=== PATIENT | female | born 1950 | race Caucasian/White ===

== ENCOUNTER → 2017-08-22 | Outpatient (CLI) | payer BC, MEDICARE ==
--- NOTE | 2017-08-22 10:59 | RADIOLOGY REPORT (SQ) ---
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 TECHNIQUE: Sagittal and Axial imaging includes T1, T2, STIR and gradient echo sequences. Coronal T2/ HASTE imaging. LIMITATIONS: None. FINDINGS: VISUALIZED UPPER ABDOMEN: Limited evaluation. Multiple cysts in the left kidney. SEGMENTATION: No transitional anatomy. The lowest well-developed disc space is labeled L5-S1. ALIGNMENT: Anatomic. VERTEBRAE: Intact. BONE MARROW: Normal. No marrow replacement or reactive changes. DISC SIGNAL: Decreased height and signal. POSTERIOR ELEMENTS: Generally intact. No pars defect evident. HARDWARE: None in the spine. CORD AND CONUS: Normal in size and signal intensity. Conus at the appropriate level. SOFT TISSUES: No aortic aneurysm seen. No bulky retroperitoneal adenopathy or mass. No paraspinal mas s or fluid. L1-L2: No significant spinal stenosis or exit foraminal stenosis. L2-L3: Mild diffuse posterior annular disc bulge. No significant spinal stenosis or exit foraminal s tenosis. L3-L4: No significant spinal stenosis or exit foraminal stenosis. L4-L5: Central disc protrusion. Mild spinal stenosis and lateral recess stenosis. No significant ex it foraminal stenosis. L5-S1: Mild posterior disc bulge. Mild spinal stenosis and lateral recess stenosis. No exit foramin al stenosis. LOWER THORACIC: Incompletely imaged. No stenosis seen. SACRUM: Visualized upper sacrum intact. OTHER: No other significant findings. IMPRESSION: DEGENERATIVE DISC DISEASE DESCRIBED ABOVE. TECHNICAL DOCUMENTATION: JOB ID: [id number]- All Rights Reserved
== END ==
LOC: RAD 08:53
PROVIDERS: ATTEND Family Medicine
DX: M47.16 Other spondylosis with myelopathy, lumbar region (principal)
CPT/HCPCS: 72148

== ENCOUNTER 2017-12-03 16:23 | Inpatient (IN) | payer MEDICARE ==
[2017-12-03] MEDS ORDERED: PROMETHAZINE HCL INJ 50 MG/1 ML VIAL IM ONE (17:08)
--- NOTE | 2017-12-03 17:10 | ER Document Report ---
ED Medical Screen (RME) - General Chief Complaint: Abdominal Pain Stated Complaint: ABDOMINAL PAIN, NAUSEA Time Seen by Provider: 12/03/17 17:07 Mode of Arrival: Ambulatory Information source: Patient TRAVEL OUTSIDE OF THE [place] IN LAST 30 DAYS: No - HPI Patient complains to provider of: abd pain Onset: Other - pt without BM for the past 3-4 days. Now with abd pain and nausea - Related Data Allergies/Adverse Reactions: doxycycline [Doxycycline] Allergy (Severe, Verified 12/03/17 16:24) Past Medical History - Past Medical History Cardiac Medical History: Denies: Hx Coronary Artery Disease, Hx Heart Attack, Hx Hypertension Pulmonary Medical History: Denies: Hx Asthma, Hx Bronchitis, Hx COPD, Hx Pneumonia Neurological Medical History: Denies: Hx Cerebrovascular Accident, Hx Seizures GI Medical History: Reports: Hx Hiatal Hernia - hx of repair, takes nexium. Denies: Hx Hepatitis, Hx Ulcer Musculoskeltal Medical History: Reports Hx Arthritis - mobic prn Infectious Medical History: Denies: Hx Hepatitis Past Surgical History: Denies: Hx Mastectomy, Hx Open Heart Surgery, Hx Pacemaker - Immunizations Hx Diphtheria, Pertussis, Tetanus Vaccination: Yes Physical Exam - Vital signs Vitals: Temp Pulse Resp BP Pulse Ox 98.1 F 99 16 119/73 96 12/03/17 16:27 12/03/17 16:27 12/03/17 16:27 12/03/17 16:27 12/03/17 16:27 Course - Vital Signs Vital signs: Temp Pulse Resp BP Pulse Ox 98.1 F 99 16 119/73 96 12/03/17 16:27 12/03/17 16:27 12/03/17 16:27 12/03/17 16:27 12/03/17 16:27
[2017-12-03] MEDS ORDERED: ONDANSETRON 4 MG TAB.RAPDIS PO ONE (17:46)
[2017-12-03 18:11] LABS: ABSOLUTE EOSINOPHILS # (AUTO) 0.1 10^3/uL (0.0-0.6); ABSOLUTE LYMPHOCYTES (AUTO) 1.2 10^3/uL (0.5-4.7); ABSOLUTE MONOCYTES (AUTO) 0.6 10^3/uL (0.1-1.4); ABSOLUTE NEUT (AUTO) 11.7 10^3/uL (1.7-8.2); BASOPHILS % (AUTO) 0.3 % (0-2); EOSINOPHILS % (AUTO) 0.5 % (0-6); HEMATOCRIT 43.2 % (36.0-47.0); HEMOGLOBIN 14.5 g/dL (12.0-15.5); LYMPHOCYTES % (AUTO) 8.7 % (13-45); MEAN CORPUSCULAR HEMOGLOBIN 30.8 pg (27.0-33.4); MEAN CORPUSCULAR HGB CONC 33.6 g/dL (32.0-36.0); MEAN CORPUSCULAR VOLUME 92 fl (80-97); MONOCYTES % (AUTO) 4.7 % (3-13); PLATELET COUNT 318 10^3/uL (150-450); RED BLOOD COUNT 4.71 10^6/uL (3.72-5.28); SEGMENTED NEUTROPHILS % (AUTO) 85.8 % (42-78); TOTAL CELLS COUNTED % (AUTO) 100 %; WHITE BLOOD COUNT 13.6 10^3/uL (4.0-10.5)
[2017-12-03 18:21] LABS: APPEARANCE,URINE CLOUDY; BILIRUBIN,URINE NEGATIVE (NEGATIVE); CALCIUM OXALATE CRYSTALS,URINE MODERATE /HPF; COLOR,URINE AMBER; GLUCOSE, URINE NEGATIVE (NEGATIVE); KETONES,URINE NEGATIVE (NEGATIVE); LEUKOCYTE ESTERASE,URINE NEGATIVE (NEGATIVE); NITRITE,URINE NEGATIVE (NEGATIVE); PROTEIN,URINE 30 mg/dL (NEGATIVE); URINE SPECIFIC GRAVITY 1.026
--- NOTE | 2017-12-03 18:21 | RADIOLOGY REPORT (SQ) ---
EXAM DESCRIPTION: ACUTE ABDOMEN SERIES COMPLETED DATE/TIME: 12/03/2017 6:09 pm REASON FOR STUDY: abd pain; constipation COMPARISON: None. NUMBER OF VIEWS: Three views. TECHNIQUE: Frontal chest, supine abdomen and upright/decubitus abdomen radiographic images acquired. LIMITATIONS: None. FINDINGS: CHEST: Lungs clear of infiltrates. FREE AIR: None. No abnormal gas collections. BOWEL GAS PATTERN: Air-fluid levels with distention of the stomach and small bowel loops. No definit e distal gas in the colon. CALCIFICATIONS: No suspicious calcifications. HARDWARE: Hernia coils. SOFT TISSUES: No gross mass or suggestion of organomegaly. BONES: No acute fracture. No worrisome bone lesions. OTHER: No other significant finding. IMPRESSION: Small bowel obstruction. TECHNICAL DOCUMENTATION: JOB ID: [id number] [employer]- All Rights Reserved
[2017-12-03 18:25] LABS: ALANINE AMINOTRANSFERASE 30 U/L (9-52); ALBUMIN 3.9 g/dL (3.5-5.0); ALKALINE PHOSPHATASE 75 U/L (38-126); ANION GAP 11 (5-19); ASPARTATE AMINO TRANSFERASE 20 U/L (14-36); BILIRUBIN,DIRECT 0.5 mg/dL (0.0-0.4); BILIRUBIN,TOTAL 0.6 mg/dL (0.2-1.3); BLOOD UREA NITROGEN 23 mg/dL (7-20); CALCIUM 9.8 mg/dL (8.4-10.2); CARBON DIOXIDE 26 mmol/L (22-30); CHLORIDE 99 mmol/L (98-107); GLUCOSE 110 mg/dL (75-110); POTASSIUM 4.7 mmol/L (3.6-5.0); SODIUM 135.7 mmol/L (137-145)
[2017-12-03] MEDS ORDERED: NORMAL SALINE 1000 ML 1,000 ML IV ONE (20:35)
[2017-12-03] MEDS ORDERED: ONDANSETRON HCL INJ/PF 4 MG/2 ML SDV IV ONE (20:35)
[2017-12-03] MEDS ORDERED: HYDROMORPHONE HCL INJ/PF 2 MG/ML AMPULE IV ONE (20:35)
[2017-12-03] MEDS ORDERED: LIDOCAINE 2% VISCOUS SOLN 20 ML UDCUP PO ONE (20:35)
--- NOTE | 2017-12-03 20:41 | ER Document Report ---
ED General - General Mode of Arrival: Ambulatory Information source: Patient TRAVEL OUTSIDE OF THE [place] IN LAST 30 DAYS: No <WALLY MEDINA - Last Filed: 12/03/17 23:54> <MARSHA COLLADO - Last Filed: 12/04/17 00:05> - General Chief Complaint: Abdominal Pain Stated Complaint: ABDOMINAL PAIN, NAUSEA Time Seen by Provider: 12/03/17 17:07 Notes: Mrs. Metzger is a 67 y.o female with a PMHx of sleep apnea, arthritis and one prior episode of Afib for which she does not take blood thinners but is rate controlled on Diltiazem. Patient presents to the ED with abd pain and nausea. Patient states that she has dealt with constipation for a while but has been better in general since she started losing weight the past few months. Patient reports that she has been constipated for the past 3-4 days with the onset of the her abdominal pain. She reports doing a fleet enema today at 1300 at home with some relief and and a small BM here in the ED. Patient also admits to passing gas today. Patient states she was vomiting clear liquids but denies vomiting bile or stool. Patient has taken Zofran upon arrival and states she has been relieved from her nausea. She denies any fever. She reports that she last ate and drank last night around 1800. Patient denies any PMHX of HTN or DM. She reports a PSHx hiatal hernia repair, cholecystectomy, tubal ligation and LT knee replacement. (WALLY MEDINA) - Related Data Allergies/Adverse Reactions: doxycycline [Doxycycline] Allergy (Severe, Verified 12/03/17 16:24) Past Medical History - General Information source: Patient - Social History Smoking Status: Never Smoker Chew tobacco use (# tins/day): No Frequency of alcohol use: None Drug Abuse: None Patient has suicidal ideation: No Patient has homicidal ideation: No - Past Medical History Cardiac Medical History: Reports: Hx Atrial Fibrillation Renal/ Medical History: Denies: Hx Peritoneal Dialysis GI Medical History: Reports: Hx Gastroesophageal Reflux Disease, Hx Hiatal Hernia - hx of repair, takes nexium Musculoskeltal Medical History: Reports Hx Arthritis - mobic prn Past Surgical History: Reports: Hx Cholecystectomy, Hx Orthopedic Surgery - left knee replacement - Immunizations Hx Diphtheria, Pertussis, Tetanus Vaccination: Yes Hx Pneumococcal Vaccination: 10/23/12 <WALLY MEDINA - Last Filed: 12/03/17 23:54> - Social History Family History: Reviewed & Not Pertinent <MARSHA COLLADO - Last Filed: 12/04/17 00:05> Other: Hiatal Hernia repair (WALLY MEDINA) Review of Systems - Review of Systems Constitutional: denies: Fever EENT: No symptoms reported Cardiovascular: No symptoms reported Respiratory: No symptoms reported Gastrointestinal: Abdominal pain, Nausea, Vomiting, Constipation Genitourinary: No symptoms reported Female Genitourinary: No symptoms reported Musculoskeletal: No symptoms reported Skin: No symptoms reported Hematologic/Lymphatic: No symptoms reported Neurological/Psychological: No symptoms reported <WALLY MEDINA - Last Filed: 12/03/17 23:54> Physical Exam <WALLY MEDINA - Last Filed: 12/03/17 23:54> <MARSHA COLLADO - Last Filed: 12/04/17 00:05> - Vital signs Vitals: Temp Pulse Resp BP Pulse Ox 98.1 F 99 16 119/73 96 12/03/17 16:27 12/03/17 16:27 12/03/17 16:27 12/03/17 16:27 12/03/17 16:27 - Notes Notes: GENERAL: Alert, interacts well. No acute distress. HEAD: Normocephalic, atraumatic. EYES: Pupils equal, round, and reactive to light. Extraocular movements intact. ENT: Oral mucosa moist, tongue midline. NECK: Full range of motion. Supple. Trachea midline. LUNGS: Clear to auscultation bilaterally, no wheezes, rales, or rhonchi. No respiratory distress. HEART: Regular rate and rhythm. No murmurs, gallops, or rubs. ABDOMEN: Soft, moderately distended. Moderately tender to palpation. Decreased bowel sounds, not high pitched. No guarding, rebound, or rigidity. RECTAL: No impaction, loose stool. Good sphincter tone. EXTREMITIES: Moves all 4 extremities spontaneously. No edema, radial and dorsalis pedis pulses 2/4 bilaterally. No cyanosis. NEUROLOGICAL: Alert and oriented x3. Normal speech. PSYCH: Normal affect, normal mood. SKIN: Warm, dry, normal turgor. No rashes or lesions noted. (WALLY MEDINA) Course - Laboratory Result Diagrams: 12/03/17 17:50 12/03/17 17:50 <WALLY MEDINA - Last Filed: 12/03/17 23:54> - Laboratory Result Diagrams: 12/03/17 17:50 12/03/17 17:50 <MARSHA COLLADO - Last Filed: 12/04/17 00:05> - Re-evaluation Re-evalutation: 12/03/17 20:43 CBC shows leukocytosis, CMP grossly unremarkable, Slightly elevated BUN of 23, urinalysis is a large amount of blood, acute abdominal series shows multiple dilated loops of small bowel with air-fluid levels. Rectal examination does not show any signs of impaction, there is actually some liquid stool. Patient did perform a fleets enema earlier this evening. Obviously patient has a partial not complete small bowel obstruction as she is still passing a small amount of gas and leaking a small amount stool. NG tube will be placed with the aid of viscous lidocaine. I did discuss the patient with Dr. Horner who agrees with hydrating her, getting a CT scan of the abdomen and pelvis with IV and oral contrast and admitting to the surgical floor. He will manage the patient from here. CT scan of the abdomen and pelvis will also show whether or not there is an obstructing kidney stone. No evidence of infection in her urine. 12/04/17 00:05 Pre-hypertension will be followed in the hospital. Likely related to pain. ( MARSHA COLLADO) - Vital Signs Vital signs: Temp Pulse Resp BP Pulse Ox 98.1 F 99 17 132/63 H 93 12/03/17 16:27 12/03/17 16:27 12/03/17 23:01 12/03/17 23:01 12/03/17 23:01 - Laboratory Laboratory results interpreted by me: 12/03/17 12/03/17 12/03/17 17:50 17:50 17:50 WBC 13.6 H Seg Neutrophils % 85.8 H Lymphocytes % 8.7 L Absolute Neutrophils 11.7 H Sodium 135.7 L BUN 23 H Est GFR (Non-Af Amer) 57 L Direct Bilirubin 0.5 H Total Protein 6.0 L Urine Protein 30 H Urine Blood LARGE H Urine Urobilinogen 4.0 H Discharge <WALLY MEDINA - Last Filed: 12/03/17 23:54> - Discharge Admitting Provider: Surgicalist - [facility] Admitted: Surgical Floor <MARSHA COLLADO - Last Filed: 12/04/17 00:05> - Discharge Clinical Impression: Small bowel obstruction, Prehypertension Condition: Good Disposition: ADMITTED INPATIENT Scribe Attestation: 12/04/17 00:05 I personally performed the services described in the documentation, reviewed and edited the documentation which was dictated to the scribe in my presence, and it accurately records my words and actions. (MARSHA COLLADO) Scribe Documentation - Scribe Written by Chrissie:: Chrissie Magana, [id number], 12/03/2017 acting as scribe for :: Chelsea <WALLY MEDINA - Last Filed: 12/03/17 23:54>
[2017-12-03] MEDS: NORMAL SALINE 1000 ML 1,000 ML IV PRN ×2 (21:00→21:01)
[2017-12-04] MEDS ORDERED: HYDROMORPHONE HCL INJ/PF 2 MG/ML AMPULE IV PRN (00:14)
--- NOTE | 2017-12-04 02:33 | RADIOLOGY REPORT (SQ) ---
EXAM DESCRIPTION: CT ABDOMEN AND PELVIS WITH CONTRAST CLINICAL HISTORY: small bowel obstruction COMPARISON: None Available. TECHNIQUE: CT of the abdomen and pelvis are performed during IV bolus administration of 100 mL of Isovue-370. DLP: 2091.64 mGycm FINDINGS: Abdomen: The liver has normal size and density. No intrahepatic mass or biliary dilatation. Prior cholecystectomy. The spleen, pancreas, and adrenal glands are unremarkable. Prominent left peripelvic cyst. No solid renal mass or hydronephrosis. Punctate bilateral nonobstructing renal calculi. Aortoiliac atherosclerosis. IVC is unremarkable. The portal vein patent. The proximal visceral and renal arteries are patent. No free intraperitoneal air. Moderate hiatal hernia. Pelvis: Prior hernia repair. Hysterectomy. Urinary bladder is unremarkable. No free pelvic fluid or lymphadenopathy. Scattered diverticula of the colon without pericolic fat stranding. Dilated loops of small bowel with transition point in the right. Abdomen, best appreciated on coronal images 25 through 27. No evidence of appendicitis. The visualized lung bases are clear. No destructive bone lesions identified. Degenerative change of the spine. IMPRESSION: 1. Findings compatible with small bowel obstruction with transition point in the right mid abdomen best seen on coronal images 25 through 27. 2. Diverticulosis without evidence of acute diverticulitis. 3. Punctate bilateral nonobstructing renal calculi. 4. Hiatal hernia. This exam was performed according to our departmental dose-optimization program, which includes automated exposure control, adjustment of the mA and/or kV according to patient size and/or use of iterative reconstruction technique.
--- NOTE | 2017-12-04 06:16 | RADIOLOGY REPORT (SQ) ---
EXAM DESCRIPTION: KUB/ABDOMEN (SINGLE VIEW) CLINICAL HISTORY: Check Placement of NG Tube COMPARISON: None. FINDINGS: Single view of the abdomen. NG tube with tip curled in the esophagus. Contrast identified in the collecting system. Postoperative change of the abdomen. Dilated loops of small bowel. No definite free intraperitoneal air. Hiatal hernia. IMPRESSION: 1. NG tube with tip curled in the esophagus. NG tube needs repositioning.
[2017-12-04] MEDS ORDERED: ACETAMINOPHEN 325 MG TABLET PO PRN (07:00)
[2017-12-04] MEDS: POTASSI CL 20 MEQ/D5-1/2NS 1L 1000 ML IV PRN ×2 (07:16→21:55)
[2017-12-04] MEDS ORDERED: ONDANSETRON HCL INJ/PF 4 MG/2 ML SDV IV PRN (07:56)
[2017-12-04] MEDS ORDERED: ENOXAPARIN SODIUM INJ 40 MG/0.4 ML DISP.SYRIN SUBCUT SCH (10:00)
--- NOTE | 2017-12-04 10:07 | RADIOLOGY REPORT (SQ) ---
EXAM DESCRIPTION: ABDOMEN 2 VIEWS COMPLETED DATE/TIME: 12/04/2017 8:53 am REASON FOR STUDY: SBO COMPARISON: 12/04/2017 0230 hours NUMBER OF VIEWS: Two views. TECHNIQUE: Supine and erect/decubitus radiographic images of the abdomen acquired. LIMITATIONS: None. FINDINGS: FREE AIR: None. No abnormal gas collections. LUNG BASES: Clear. BOWEL GAS PATTERN: The GB air-fluid levels in the small bowel on with mild dilatation. Contrast is s een in the colon. Intravenous contrast seen in the bladder. CALCIFICATIONS: No suspicious calcifications. SOFT TISSUES: No gross mass or suggestion of organomegaly. HARDWARE: Nasogastric tube continues to be cord in the mid esophagus. The tip is not in the stomach. Hernia coils. BONES: No acute fracture. No worrisome bone lesions. OTHER: No other significant finding. IMPRESSION: Partial small bowel obstruction. The nasogastric tube continues to be coiled in the mid esophagus. TECHNICAL DOCUMENTATION: JOB ID: [id number] [employer]- All Rights Reserved
--- NOTE | 2017-12-04 16:09 | HISTORY AND PHYSICAL E ---
History and Physical NAME: BRIDGETTE BOONE : 1950 AGE: 67Y ADMITTED: 12/03/2017 ROOM: 223 HISTORY OF PRESENT ILLNESS: The patient is being admitted to the emergency room for evaluation and management of her partial small bowel obstruction. The patient has history of constipation, recurrent episodes in the past. and she developed an abdominal distention, passing only a small stool, abdominal distention, nausea. She did not vomited at any time at home, . In the emergency room an abdominal series showed dilated small bowel loops with . The patient got years ago and she had more problem with constipation, passing small stool. SURGICAL HISTORY: She had a gallbladder surgery, laparoscopic cholecystectomy, and hiatal hernia repair in the past. REVIEW OF SYSTEMS: As per examination. PHYSICAL EXAMINATION: VITAL SIGNS: afebrile. GENERAL: The patient is awake, alert, oriented. HEAD AND NECK: No lymphadenopathy, no masses. CHEST: Both lungs are clear to auscultation. CARDIOVASCULAR: Heart sounds are regular, no murmurs, no gallops. ABDOMEN: Soft, mild distention, no tenderness on palpation. No palpable hernia on palpation. The bowel sounds . IMPRESSION OVERALL: Partial small bowel obstruction. DICTATING PHYSICIAN: KAREN RAMOS M.D. [id number] PHY#: [id number] ID: [id number] JOB#: [id number] ACCT: [id number] cc:KAREN RAMOS M.D. >
--- NOTE | 2017-12-04 17:40 | PDOC PROGRESS REPORT ---
Subjective Progress Note for:: 12/04/17 Subjective:: Patient passed some flatus this morning. No more abdominal pain. NGT not draining. Reason For Visit: INTESTINAL OBSTRUCTION Physical Exam Vital Signs: Temp Pulse Resp BP Pulse Ox 98.4 F 60 24 H 131/61 H 97 12/04/17 12:00 12/04/17 12:00 12/04/17 12:00 12/04/17 12:00 12/04/17 12:00 Intake & Output 12/03/17 12/04/17 12/05/17 06:59 06:59 06:59 Intake Total 0 Balance 0 General appearance: PRESENT: no acute distress, well-developed, well-nourished Head exam: PRESENT: atraumatic, normocephalic Ear exam: PRESENT: normal external ear exam Neck exam: ABSENT: carotid bruit, JVD, lymphadenopathy, thyromegaly Respiratory exam: PRESENT: clear to auscultation gilmar. ABSENT: rales, rhonchi, wheezes Cardiovascular exam: PRESENT: RRR. ABSENT: diastolic murmur, rubs, systolic murmur GI/Abdominal exam: PRESENT: normal bowel sounds, soft, other - midline epigastric surgical scar and some laparoscpoic surgical scars in the upper abdomen. Neurological exam: PRESENT: alert, awake, oriented to person, oriented to place , oriented to time, oriented to situation, CN II-XII grossly intact. ABSENT: motor sensory deficit Psychiatric exam: PRESENT: appropriate affect, normal mood. ABSENT: homicidal ideation, suicidal ideation Results Impressions: Acute Abdomen Series 12/03/17 17:07 IMPRESSION: Small bowel obstruction. Abdomen X-Ray 12/04/17 00:00 IMPRESSION: Partial small bowel obstruction. The nasogastric tube continues to be coiled in the mid esophagus. Abdomen/Pelvis CT 12/04/17 00:00 IMPRESSION: 1. Findings compatible with small bowel obstruction with transition point in the right mid abdomen best seen on coronal images 25 through 27. 2. Diverticulosis without evidence of acute diverticulitis. 3. Punctate bilateral nonobstructing renal calculi. 4. Hiatal hernia. This exam was performed according to our departmental dose-optimization program, which includes automated exposure control, adjustment of the mA and/or kV according to patient size and/or use of iterative reconstruction technique. KUB X-Ray 12/04/17 00:23 IMPRESSION: 1. NG tube with tip curled in the esophagus. NG tube needs repositioning. Assessment & Plan - Plan Summary Plan Summary: resolved partial SBO DC NGT Commence sips of clears po
[2017-12-04] MEDS ORDERED: (PENDING PHARMACY ID) (Rizatriptan Benzoate [Maxalt] 10 MG) PO PRN (18:59)
[2017-12-04] MEDS ORDERED: (PENDING PHARMACY ID) (Diltiazem Hcl [Cartia Xt] 180 MG) PO SCH (19:00)
[2017-12-04] MEDS ORDERED: (PENDING PHARMACY ID) (Tolterodine Tartrate [Detrol] 2 MG) PO SCH (19:00)
[2017-12-04] MEDS ORDERED: OMEGA-3 ACID ETHYL ESTERS 1 GM CAPSULE PO ONE (20:30)
[2017-12-04] MEDS ORDERED: MELOXICAM 7.5 MG TABLET PO ONE (20:30)
[2017-12-04] MEDS ORDERED: CETIRIZINE 10 MG TABLET PO ONE (20:30)
[2017-12-04] MEDS ORDERED: DILTIAZEM HCL 180 MG CAPSULE.CR PO ONE (21:00)
[2017-12-04] MEDS: TOLTERODINE TARTRATE 1 MG TABLET PO SCH (21:55)
[2017-12-05] MEDS ORDERED: LANSOPRAZOLE 30 MG TAB.RAP.DR PO SCH (06:00)
[2017-12-05 07:12] LABS: ABSOLUTE BASOPHILS # (AUTO) 0.1 10^3/uL (0.0-0.2); ABSOLUTE EOSINOPHILS # (AUTO) 0.5 10^3/uL (0.0-0.6); ABSOLUTE LYMPHOCYTES (AUTO) 2.1 10^3/uL (0.5-4.7); ABSOLUTE MONOCYTES (AUTO) 0.5 10^3/uL (0.1-1.4); BASOPHILS % (AUTO) 0.8 % (0-2); EOSINOPHILS % (AUTO) 6.7 % (0-6); HEMATOCRIT 35.5 % (36.0-47.0); MEAN CORPUSCULAR HEMOGLOBIN 31.1 pg (27.0-33.4); MEAN CORPUSCULAR HGB CONC 33.5 g/dL (32.0-36.0); MEAN CORPUSCULAR VOLUME 93 fl (80-97); MONOCYTES % (AUTO) 7.5 % (3-13); PLATELET COUNT 213 10^3/uL (150-450); RED BLOOD COUNT 3.83 10^6/uL (3.72-5.28); TOTAL CELLS COUNTED % (AUTO) 100 %; WHITE BLOOD COUNT 7.2 10^3/uL (4.0-10.5)
[2017-12-05 07:15] LABS: HEMOGLOBIN 11.9 g/dL (12.0-15.5)
[2017-12-05 07:25] LABS: BLOOD UREA NITROGEN 9 mg/dL (7-20); CALCIUM 8.9 mg/dL (8.4-10.2); CHLORIDE 109 mmol/L (98-107); GLUCOSE 104 mg/dL (75-110); POTASSIUM 4.2 mmol/L (3.6-5.0)
[2017-12-05 07:36] LABS: CARBON DIOXIDE 29 mmol/L (22-30)
[2017-12-05 07:40] LABS: ANION GAP 2 (5-19)
[2017-12-05] MEDS: TOLTERODINE TARTRATE 1 MG TABLET PO SCH (09:23)
[2017-12-05] MEDS ORDERED: FLUTICASONE NASAL SPRAY 50 MCG/SPRY 120 SPRAY/16 GM NASL SCH (10:00)
[2017-12-05] MEDS ORDERED: OMEGA-3 ACID ETHYL ESTERS 1 GM CAPSULE PO SCH (10:00)
[2017-12-05] MEDS ORDERED: (PENDING PHARMACY ID) (Multivitamin [Multivitamins] 1 TAB) PO SCH (10:00)
[2017-12-05] MEDS ORDERED: FISH OIL PO SCH (10:00)
[2017-12-05] MEDS ORDERED: DILTIAZEM HCL 180 MG CAPSULE.CR PO SCH ×2 (10:00→22:00)
[2017-12-05] MEDS ORDERED: OMEGA PO SCH (10:00)
[2017-12-05] MEDS ORDERED: FATTY ACIDS PO SCH (10:00)
[2017-12-05] MEDS ORDERED: (PENDING PHARMACY ID) (Ergocalciferol (Vitamin D2) [Vitamin D2] 2,000 UNIT) PO SCH (10:00)
[2017-12-05] MEDS ORDERED: MELOXICAM 7.5 MG TABLET PO SCH ×2 (10:00→22:00)
[2017-12-05] MEDS ORDERED: MULTIVITAMIN TABLET PO SCH (10:00)
[2017-12-05] MEDS ORDERED: CETIRIZINE 10 MG TABLET PO SCH (10:00)
[2017-12-05 14:33] VITALS: BP 117/48
--- NOTE | 2017-12-05 20:01 | PDOC DISCHARGE SUMMARY ---
General - Admit/Disc Date/PCP Admission Date/Primary Care Provider: 12/03/17 21:15 MARAGRITA RAMIREZ NP Discharge Date: 12/05/17 - Additional Information Resuscitation Status: Full Code Discharge Diet: As Tolerated, Regular Discharge Activity: Activity As Tolerated Home Medications: Cetirizine HCl [Zyrtec 10 mg Tablet] 10 mg PO DAILY 12/04/17 Cyanocobalamin (Vitamin B-12) [Vitamin B-12] 1,000 mcg PO DAILY 12/04/17 Diltiazem HCl [Cartia Xt] 180 mg PO DAILY 12/04/17 Ergocalciferol (Vitamin D2) [Vitamin D2] 2,000 unit PO DAILY 12/04/17 Esomeprazole Magnesium [Nexium] 40 mg PO DAILY 12/04/17 Fluticasone Propionate [Flonase Nasal [place] 50 Mcg/[place] 16 gm] 2 sprays NASL DAILY 12/04/17 Meloxicam [Mobic] 7.5 mg PO DAILY 12/04/17 Multivitamin [Multivitamins] 1 tab PO DAILY 12/04/17 [place]-3 Fatty Acids/Fish Oil [[place] 3 Fish Oil Softgel] 1 cap PO DAILY 12/04/17 Rizatriptan Benzoate [Maxalt] 10 mg PO ASDIR PRN 12/04/17 Tolterodine Tartrate [Detrol] 2 mg PO BID 12/04/17 Acetaminophen [Tylenol 325 mg Tablet] 650 mg PO Q4HP PRN tablet 12/05/17 History of Present Illness History of Present Illness: BRIDGETTE BOONE is a 67 year old female admitted with adhesive partial small bowel obstruction. She had previous Leigh fundoplication attempted laparoscopic but had to be converted to an open procedure. Hospital Course Hospital Course: She was managed conservatively with NGT drainage and opened up. The NGT was removed the first day of admission after she started passing flatus and she was commenced on clears that were advanced to regular diet as she tolerated. She has had two good bowel movements, no more pain, nausea or vomiting and is discharged home. Physical Exam Vital Signs: Temp Pulse Resp BP Pulse Ox 98.3 F 60 18 117/48 L 98 12/05/17 14:32 12/05/17 14:32 12/05/17 14:32 12/05/17 14:32 12/05/17 14:32 Intake & Output 12/04/17 12/05/17 12/06/17 06:59 06:59 06:59 Intake Total 0 1200 Balance 0 1200 Weight 103.3 kg General appearance: PRESENT: no acute distress, well-developed, well-nourished Head exam: PRESENT: atraumatic, normocephalic Eye exam: PRESENT: conjunctiva pink, EOMI, PERRLA. ABSENT: scleral icterus Ear exam: PRESENT: normal external ear exam Neck exam: ABSENT: carotid bruit, JVD, lymphadenopathy, thyromegaly Respiratory exam: PRESENT: clear to auscultation gilmar. ABSENT: rales, rhonchi, wheezes Cardiovascular exam: PRESENT: RRR. ABSENT: diastolic murmur, rubs, systolic murmur GI/Abdominal exam: PRESENT: normal bowel sounds, soft, other - midline epigastric surgical scar along with bilateral upper abdominal port site scars.. ABSENT: distended, guarding, mass, organolmegaly, rebound, tenderness Neurological exam: PRESENT: alert, awake, oriented to person, oriented to place , oriented to time, oriented to situation, CN II-XII grossly intact. ABSENT: motor sensory deficit Psychiatric exam: PRESENT: appropriate affect, normal mood. ABSENT: homicidal ideation, suicidal ideation Results Laboratory Results: 12/05/17 06:23 12/05/17 06:23 12/05/17 12/05/17 06:23 06:23 WBC 7.2 RBC 3.83 Hgb 11.9 L D Hct 35.5 L MCV 93 MCH 31.1 MCHC 33.5 RDW 14.0 Plt Count 213 Seg Neutrophils % 56.0 Lymphocytes % 29.0 Monocytes % 7.5 Eosinophils % 6.7 H Basophils % 0.8 Absolute Neutrophils 4.0 Absolute Lymphocytes 2.1 Absolute Monocytes 0.5 Absolute Eosinophils 0.5 Absolute Basophils 0.1 Sodium 140.0 Potassium 4.2 Chloride 109 H Carbon Dioxide 29 Anion Gap 2 L BUN 9 Creatinine 0.78 Est GFR ( Amer) > 60 Est GFR (Non-Af Amer) > 60 Glucose 104 Calcium 8.9 Impressions: Acute Abdomen Series 12/03/17 17:07 IMPRESSION: Small bowel obstruction. Abdomen X-Ray 12/04/17 00:00 IMPRESSION: Partial small bowel obstruction. The nasogastric tube continues to be coiled in the mid esophagus. Abdomen/Pelvis CT 12/04/17 00:00 IMPRESSION: 1. Findings compatible with small bowel obstruction with transition point in the right mid abdomen best seen on coronal images 25 through 27. 2. Diverticulosis without evidence of acute diverticulitis. 3. Punctate bilateral nonobstructing renal calculi. 4. Hiatal hernia. This exam was performed according to our departmental dose-optimization program, which includes automated exposure control, adjustment of the mA and/or kV according to patient size and/or use of iterative reconstruction technique. KUB X-Ray 12/04/17 00:23 IMPRESSION: 1. NG tube with tip curled in the esophagus. NG tube needs repositioning. Plan Discharge Plan: discharge home F/u with PCP return to ER if pain or vomiting recur.
== END 2017-12-05 15:00 | disposition home or self-care (01) | DRG 390 ==
LOC: ER 16:23 → EH 21:15 → 2S 12-04 07:51
PROVIDERS: ADMIT Colon & Rectal Surgery; ATTEND Colon & Rectal Surgery
DX: K56.609 Unspecified intestinal obstruction, unspecified as to partial versus complete obstruction (principal); K21.9 Gastro-esophageal reflux disease without esophagitis; K44.9 Diaphragmatic hernia without obstruction or gangrene; K59.00 Constipation, unspecified; I48.91 Unspecified atrial fibrillation; I10 Essential (primary) hypertension; E11.9 Type 2 diabetes mellitus without complications; Z96.652 Presence of left artificial knee joint
CPT/HCPCS: 36415; 74018; 74019; 74022; 74177; 80048; 80053; 81001; 85025; 96374; 96375; 99285; J1170; J1650; J2405; J3480; J3490; J7030; S0119

== ENCOUNTER 2017-12-09 06:32 | Inpatient (IN) | payer BC, MEDICARE ==
[2017-12-09] MEDS ORDERED: ONDANSETRON HCL INJ/PF 4 MG/2 ML SDV IV ONE (08:26)
[2017-12-09] MEDS ORDERED: DICYCLOMINE HCL INJ 20 MG/2 ML AMPULE IM ONE (08:26)
[2017-12-09] MEDS ORDERED: ROCURONIUM BROMIDE INJ 50 MG/5 ML VIAL IV ONE (09:00)
[2017-12-09] MEDS ORDERED: GLYCOPYRROLATE INJ 0.4 MG/2 ML VIAL ONE (09:00)
[2017-12-09] MEDS ORDERED: DEXAMETHASONE SOD PHOSPHATE INJ 4 MG/1 ML VIAL ONE (09:00)
[2017-12-09] MEDS ORDERED: SUCCINYLCHOLINE CHLORIDE INJ 200 MG/10 ML VIAL ONE (09:00)
[2017-12-09] MEDS ORDERED: ONDANSETRON HCL INJ/PF 4 MG/2 ML SDV ONE (09:00)
[2017-12-09] MEDS ORDERED: NEOSTIGMINE METHYLSULFATE 10 MG/10 ML VIAL ONE (09:00)
[2017-12-09 09:13] LABS: ABSOLUTE BASOPHILS # (AUTO) 0.1 10^3/uL (0.0-0.2); ABSOLUTE LYMPHOCYTES (AUTO) 1.7 10^3/uL (0.5-4.7); ABSOLUTE MONOCYTES (AUTO) 0.5 10^3/uL (0.1-1.4); ABSOLUTE NEUT (AUTO) 7.3 10^3/uL (1.7-8.2); BASOPHILS % (AUTO) 0.6 % (0-2); EOSINOPHILS % (AUTO) 0.4 % (0-6); HEMATOCRIT 43.2 % (36.0-47.0); HEMOGLOBIN 14.5 g/dL (12.0-15.5); LYMPHOCYTES % (AUTO) 17.3 % (13-45); MEAN CORPUSCULAR HEMOGLOBIN 31.1 pg (27.0-33.4); MEAN CORPUSCULAR HGB CONC 33.5 g/dL (32.0-36.0); MEAN CORPUSCULAR VOLUME 93 fl (80-97); MONOCYTES % (AUTO) 5.5 % (3-13); PLATELET COUNT 305 10^3/uL (150-450); RED BLOOD COUNT 4.65 10^6/uL (3.72-5.28); RED CELL DISTRIBUTION WIDTH 13.9 % (11.5-14.0); SEGMENTED NEUTROPHILS % (AUTO) 76.2 % (42-78); TOTAL CELLS COUNTED % (AUTO) 100 %; WHITE BLOOD COUNT 9.6 10^3/uL (4.0-10.5)
[2017-12-09 09:23] LABS: ALANINE AMINOTRANSFERASE 42 U/L (9-52); ALKALINE PHOSPHATASE 70 U/L (38-126); ANION GAP 8 (5-19); ASPARTATE AMINO TRANSFERASE 24 U/L (14-36); BILIRUBIN,DIRECT 0.6 mg/dL (0.0-0.4); BILIRUBIN,TOTAL 0.6 mg/dL (0.2-1.3); BLOOD UREA NITROGEN 16 mg/dL (7-20); CALCIUM 10.1 mg/dL (8.4-10.2); CARBON DIOXIDE 29 mmol/L (22-30); CHLORIDE 101 mmol/L (98-107); GLUCOSE 112 mg/dL (75-110); LIPASE 36.1 U/L (23-300); POTASSIUM 4.6 mmol/L (3.6-5.0); SODIUM 138.3 mmol/L (137-145); TOTAL PROTEIN 6.1 g/dL (6.3-8.2)
[2017-12-09 09:54] LABS: APPEARANCE,URINE SLIGHTLY-CLOUDY; BILIRUBIN,URINE NEGATIVE (NEGATIVE); COLOR,URINE YELLOW; GLUCOSE, URINE NEGATIVE (NEGATIVE); KETONES,URINE NEGATIVE (NEGATIVE); LEUKOCYTE ESTERASE,URINE NEGATIVE (NEGATIVE); NITRITE,URINE NEGATIVE (NEGATIVE); PROTEIN,URINE NEGATIVE (NEGATIVE); URINE SPECIFIC GRAVITY 1.014
[2017-12-09] MEDS ORDERED: PROMETHAZINE HCL INJ 50 MG/1 ML VIAL IM ONE (10:15)
[2017-12-09] MEDS ORDERED: PROMETHAZINE HCL INJ 25 MG/1 ML VIAL ONE (10:18)
[2017-12-09] MEDS ORDERED: FENTANYL CITRATE INJ/PF 100 MCG/2 ML AMPUL IV ONE ×2 (10:37→12:55)
--- NOTE | 2017-12-09 11:39 | RADIOLOGY REPORT (SQ) ---
EXAM DESCRIPTION: CT ABD/PELVIS WITH IV ORAL COMPLETED DATE/TIME: 12/09/2017 11:22 am REASON FOR STUDY: eval sbo COMPARISON: 12/04/2017 11/23/2011 TECHNIQUE: CT scan of the abdomen and pelvis performed with intravenous and oral contrast using chucho rebekah scanning technique with dynamic intravenous contrast injection. Images reviewed with lung, soft t issue, and bone windows. Reconstructed coronal and sagittal MPR images reviewed. Delayed images for e valuation of the urinary system also acquired. All images stored on PACS. All CT scanners at this facility use dose modulation, iterative reconstruction, and/or weight based d osing when appropriate to reduce radiation dose to as low as reasonably achievable (ALARA). [facility]: Dose Right [facility]: CareDose [facility]: Dose Right [facility]: Teradose 4D [facility]: [employer] CONTRAST TYPE AND DOSE: contrast/concentration: Isovue 370.00 mg/ml; Total Contrast Delivered: 100.0 ml; Total Saline Delivered: 72.0 ml RENAL FUNCTION: GFR > 60. RADIATION DOSE: CT Rad equipment meets quality standard of care and radiation dose reduction techniq ues were employed. CTDIvol: 17.2 - 20.0 mGy. DLP: 1999 mGy-cm. . LIMITATIONS: None. FINDINGS: LOWER CHEST: No significant findings. No nodules or infiltrates. LIVER: Normal size. No masses. No dilated ducts. SPLEEN: Normal size. No focal lesions. PANCREAS: No masses. No significant calcifications. No adjacent inflammation or peripancreatic fluid collections. Pancreatic duct not dilated. GALLBLADDER: Surgically absent. ADRENAL GLANDS: No significant masses or asymmetry. RIGHT KIDNEY AND URETER: No solid masses. No significant calcifications. No hydronephrosis or hyd roureter. LEFT KIDNEY AND URETER: Stable renal sinus cysts. No solid masses. No significant calcifications. No hydronephrosis or hydroureter. AORTA AND VESSELS: Atherosclerotic calcifications peer No aneurysm. No dissection. Renal arteries, SM A, celiac without stenosis. RETROPERITONEUM: No retroperitoneal adenopathy, hemorrhage or masses. BOWEL AND PERITONEAL CAVITY: Increased distension of the stomach and proximal small bowel filled with contrast, fluid, and gas compatible with distal small bowel obstruction with transition point some a re. The or right lower quadrants. Paraesophageal hernia again noted. Diverticulosis without diverti culitis. No pneumatosis or free air. Slight increase in amount of free fluid. APPENDIX: Normal. PELVIS: No significant masses. Normal bladder. Mild free-fluid. ABDOMINAL WALL: No masses. Stable postsurgical change. No hernias. BONES: Degenerative change without fracture. OTHER: No other significant finding. IMPRESSION: PERSISTENT DISTAL SMALL BOWEL OBSTRUCTION WITH SLIGHT INCREASED IN AMOUNT OF FREE ABDOM INAL FLUID. NO PNEUMATOSIS OR FREE AIR. ADDITIONAL CHRONIC CHANGES ABOVE. TECHNICAL DOCUMENTATION: JOB ID: [id number] Quality ID # [id number]: Final reports with documentation of one or more dose reduction techniques (e.g., Au tomated exposure control, adjustment of the mA and/or kV according to patient size, use of iterative reconstruction technique) 2010 [employer]- All Rights Reserved
[2017-12-09] MEDS ORDERED: NORMAL SALINE 1000 ML 1,000 ML IV ONE ×2 (12:40→17:43)
[2017-12-09] MEDS ORDERED: LIDOCAINE 1% INJ-PF (10 MG/ML) 30 ML SDV NEB ONE (12:54)
[2017-12-09] MEDS ORDERED: LIDOCAINE 2% URO-JET 5 ML KIT MM ONE (12:54)
[2017-12-09] MEDS ORDERED: PHARMACY COMMUNICATION ORDER MC NR (13:00)
--- NOTE | 2017-12-09 13:26 | PDOC H&P ---
History of Present Illness Admission Date/PCP: MARGARITA RAMIREZ NP Patient complains of: abdominal pain, distention History of Present Illness: BRIDGETTE BOONE is a 67 year old female 67 y/o female obese, hx of open Leigh fundoplication in the . She was admitted for abdominal distention, obstipation, pain 1 week ago, followed by symptoms resolution, and discharged to home 2 days after admission. She returns to the Er with similar symptoms. She passed flatus yesterday, none today. She is c/o severe upper abdominal pain as she she cannot vomit due to the Leigh fundoplication. A CT scan A/P has been done revealing complete small bowel obstruction and intraperitoneal fluid, without free air, Past Medical History Cardiac Medical History: Reports: Atrial Fibrillation Denies: Coronary Artery Disease, Myocardial Infarction, Hypertension Pulmonary Medical History: Denies: Asthma, Bronchitis, Chronic Obstructive Pulmonary Disease (COPD), Pneumonia Neurological Medical History: Denies: Seizures GI Medical History: Reports: Gastroesophageal Reflux Disease, Hiatal Hernia - hx of repair, takes nexium Denies: Hepatitis Musculoskeltal Medical History: Reports: Arthritis - mobic prn Hematology: Denies: Anemia, Sickle Cell Disease Past Surgical History Past Surgical History: Reports: Cholecystectomy, Orthopedic Surgery - left knee replacement, Other - open Leigh fundoplication Denies: Amputation, Mastectomy, Pacemaker Social History Smoking Status: Never Smoker Frequency of Alcohol Use: None Hx Recreational Drug Use: No Drugs: None Hx Prescription Drug Abuse: No Family History Family History: Reviewed & Not Pertinent Parental Family History Reviewed: No Children Family History Reviewed: No Sibling(s) Family History Reviewed.: No Medication/Allergy Home Medications: Cetirizine HCl [Zyrtec 10 mg Tablet] 10 mg PO DAILY 12/04/17 Cyanocobalamin (Vitamin B-12) [Vitamin B-12] 1,000 mcg PO DAILY 12/04/17 Diltiazem HCl [Cartia Xt] 180 mg PO DAILY 12/04/17 Ergocalciferol (Vitamin D2) [Vitamin D2] 2,000 unit PO DAILY 12/04/17 Esomeprazole Magnesium [Nexium] 40 mg PO DAILY 12/04/17 Fluticasone Propionate [Flonase Nasal [place] 50 Mcg/[place] 16 gm] 2 sprays NASL DAILY 12/04/17 Meloxicam [Mobic] 7.5 mg PO DAILY 12/04/17 Multivitamin [Multivitamins] 1 tab PO DAILY 12/04/17 [place]-3 Fatty Acids/Fish Oil [[place] 3 Fish Oil Softgel] 1 cap PO DAILY 12/04/17 Rizatriptan Benzoate [Maxalt] 10 mg PO ASDIR PRN 12/04/17 Tolterodine Tartrate [Detrol] 2 mg PO BID 12/04/17 Acetaminophen [Tylenol 325 mg Tablet] 650 mg PO Q4HP PRN tablet 12/05/17 Allergies/Adverse Reactions: doxycycline [Doxycycline] Allergy (Severe, Verified 12/09/17 06:39) Physical Exam Vital Signs: Temp Pulse Resp BP Pulse Ox 98.3 F 76 18 111/61 96 12/09/17 06:51 12/09/17 06:51 12/09/17 09:03 12/09/17 06:51 12/09/17 06:51 Intake & Output 12/08/17 12/09/17 12/10/17 06:59 06:59 06:59 Weight 103.6 kg General appearance: PRESENT: mild distress, morbidly obese Head exam: PRESENT: atraumatic Neck exam: PRESENT: full ROM Respiratory exam: PRESENT: clear to auscultation gilmar Cardiovascular exam: PRESENT: RRR GI/Abdominal exam: PRESENT: distended, firm, normal bowel sounds, tenderness Results Laboratory Results: 12/09/17 08:50 12/09/17 08:50 12/09/17 12/09/17 12/09/17 08:50 08:50 08:50 WBC 9.6 RBC 4.65 Hgb 14.5 Hct 43.2 MCV 93 MCH 31.1 MCHC 33.5 RDW 13.9 Plt Count 305 Seg Neutrophils % 76.2 Lymphocytes % 17.3 Monocytes % 5.5 Eosinophils % 0.4 Basophils % 0.6 Absolute Neutrophils 7.3 Absolute Lymphocytes 1.7 Absolute Monocytes 0.5 Absolute Eosinophils 0.0 Absolute Basophils 0.1 Sodium 138.3 Potassium 4.6 Chloride 101 Carbon Dioxide 29 Anion Gap 8 BUN 16 Creatinine 0.89 Est GFR ( Amer) > 60 Est GFR (Non-Af Amer) > 60 Glucose 112 H Lactic Acid 0.9 Calcium 10.1 Total Bilirubin 0.6 AST 24 ALT 42 Alkaline Phosphatase 70 Total Protein 6.1 L Albumin 4.0 Lipase 36.1 Urine Color Urine Appearance Urine pH Ur Specific [place] Urine Protein Urine Glucose (UA) Urine Ketones Urine Blood Urine Nitrite Ur Leukocyte Esterase Urine WBC (Auto) Urine RBC (Auto) 12/09/17 09:05 WBC RBC Hgb Hct MCV MCH MCHC RDW Plt Count Seg Neutrophils % Lymphocytes % Monocytes % Eosinophils % Basophils % Absolute Neutrophils Absolute Lymphocytes Absolute Monocytes Absolute Eosinophils Absolute Basophils Sodium Potassium Chloride Carbon Dioxide Anion Gap BUN Creatinine Est GFR ( Amer) Est GFR (Non-Af Amer) Glucose Lactic Acid Calcium Total Bilirubin AST ALT Alkaline Phosphatase Total Protein Albumin Lipase Urine Color YELLOW Urine Appearance SLIGHTLY-CLOUDY Urine pH 6.0 Ur Specific [place] 1.014 Urine Protein NEGATIVE Urine Glucose (UA) NEGATIVE Urine Ketones NEGATIVE Urine Blood LARGE H Urine Nitrite NEGATIVE Ur Leukocyte Esterase NEGATIVE Urine WBC (Auto) 2 Urine RBC (Auto) >182 Impressions: Abdomen/Pelvis CT 12/09/17 00:00 IMPRESSION: PERSISTENT DISTAL SMALL BOWEL OBSTRUCTION WITH SLIGHT INCREASED IN AMOUNT OF FREE ABDOMINAL FLUID. NO PNEUMATOSIS OR FREE AIR. ADDITIONAL CHRONIC CHANGES ABOVE. Assessment & Plan - Plan Summary Plan Summary: A/ Complete, recurrent small bowel obstruction by symptoms and CT scan findings Very distended stomach as she cannot vomit after her Leigh fundoplication Hx of atrial fibrillation Blood work WNL Abdomen distended P/ aggressive preop hydration Insert NGT stat to prevent aspiration or stomach blow-out Plan laparotomy, lysis of adhesions, possible bowel resection today Mefoxin 2 gr preop EKG preop Procedure, risks benefits d/w patient. She understands all the above and decides to proceed
[2017-12-09] MEDS ORDERED: CEFOXITIN 1 GM/D5W RTU 50 ML IV SCH (14:00)
[2017-12-09] MEDS ORDERED: CEFOXITIN SODIUM 2 GM in NORMAL SALINE 100 ML IV PRN (14:14)
--- NOTE | 2017-12-09 14:14 | ER Document Report ---
ED General - General Chief Complaint: Abdominal Pain Stated Complaint: NAUSEA,ABDOMINAL PAIN Time Seen by Provider: 12/09/17 08:25 TRAVEL OUTSIDE OF THE [place] IN LAST 30 DAYS: No - HPI Patient complains to provider of: Abdominal pain nausea vomiting Notes: Patient coming in for evaluation of abdominal pain nausea vomiting. Patient states recently seen for a bowel obstruction was discharged that she follows clear liquid diet and now is on full diet however last night started having some crampy abdominal pain with some nausea vomiting. Patient states she did have a bowel movement was not however at this time not passing gas. Patient states crampy abdominal pain similar to when she had sbo last week. Denies fevers chills - Related Data Allergies/Adverse Reactions: doxycycline [Doxycycline] Allergy (Severe, Verified 12/09/17 06:39) Past Medical History - Social History Smoking Status: Never Smoker Chew tobacco use (# tins/day): No Frequency of alcohol use: None Drug Abuse: None Family History: Reviewed & Not Pertinent Patient has suicidal ideation: No Patient has homicidal ideation: No - Past Medical History Cardiac Medical History: Reports: Hx Atrial Fibrillation Denies: Hx Coronary Artery Disease, Hx Heart Attack, Hx Hypertension Pulmonary Medical History: Denies: Hx Asthma, Hx Bronchitis, Hx COPD, Hx Pneumonia Neurological Medical History: Denies: Hx Cerebrovascular Accident, Hx Seizures Renal/ Medical History: Denies: Hx Peritoneal Dialysis GI Medical History: Reports: Hx Gastroesophageal Reflux Disease, Hx Hiatal Hernia - hx of repair, takes nexium. Denies: Hx Hepatitis, Hx Ulcer Musculoskeltal Medical History: Reports Hx Arthritis - mobic prn Infectious Medical History: Denies: Hx Hepatitis Past Surgical History: Reports: Hx Cholecystectomy, Hx Orthopedic Surgery - left knee replacement, Other - open Leigh fundoplication. Denies: Hx Mastectomy, Hx Open Heart Surgery, Hx Pacemaker - Immunizations Hx Diphtheria, Pertussis, Tetanus Vaccination: Yes Hx Pneumococcal Vaccination: 10/23/12 Review of Systems - Review of Systems Constitutional: No symptoms reported EENT: No symptoms reported Cardiovascular: No symptoms reported Respiratory: No symptoms reported Gastrointestinal: Abdominal pain Genitourinary: No symptoms reported Female Genitourinary: No symptoms reported Musculoskeletal: No symptoms reported Skin: No symptoms reported Hematologic/Lymphatic: No symptoms reported Neurological/Psychological: No symptoms reported -: Yes All other systems reviewed and negative Physical Exam - Vital signs Vitals: Temp Pulse Resp BP Pulse Ox 98.3 F 76 20 111/61 96 12/09/17 06:51 12/09/17 06:51 12/09/17 06:51 12/09/17 06:51 12/09/17 06:51 Interpretation: Normal - General General appearance: Appears well, Alert - HEENT Head: Normocephalic, Atraumatic Eyes: Normal Pupils: PERRL - Respiratory Respiratory status: No respiratory distress Chest status: Nontender Breath sounds: Normal Chest palpation: Normal - Cardiovascular Rhythm: Regular Heart sounds: Normal auscultation Murmur: No - Abdominal Inspection: Normal Distension: No distension Bowel sounds: Hyperactive Tenderness: Tender - Diffuse Organomegaly: No organomegaly - Back Back: Normal, Nontender - Extremities General upper extremity: Normal inspection, Nontender, Normal color, Normal ROM , Normal temperature General lower extremity: Normal inspection, Nontender, Normal color, Normal ROM , Normal temperature, Normal weight bearing. No: Jamey's sign - Neurological Neuro grossly intact: Yes Cognition: Normal Orientation: AAOx4 [place]rie Coma Scale Eye Opening: Spontaneous [place] Coma Scale Verbal: Oriented [place] Coma Scale Motor: Obeys Commands [place] Coma Scale Total: 15 Speech: Normal Motor strength normal: LUE, RUE, LLE, RLE Sensory: Normal - Psychological Associated symptoms: Normal affect, Normal mood - Skin Skin Temperature: Warm Skin Moisture: Dry Skin Color: Normal Course - Re-evaluation Re-evalutation: 12/09/17 14:[address] scan with oral and IV contrast again showing a small bowel obstruction. Did notify the surgeon on-call who will admit the patient more likely take the patient to surgery today for lysis of adhesions and laparotomy. Patient was informed. NG tube was ordered and placed. Patient will be admitted - Vital Signs Vital signs: Temp Pulse Resp BP Pulse Ox 98.3 F 76 18 111/61 96 12/09/17 06:51 12/09/17 06:51 12/09/17 09:03 12/09/17 06:51 12/09/17 06:51 - Laboratory Result Diagrams: 12/09/17 08:50 12/09/17 08:50 Laboratory results interpreted by me: 12/09/17 12/09/17 08:50 09:05 Glucose 112 H Direct Bilirubin 0.6 H Total Protein 6.1 L Urine Blood LARGE H Urine Urobilinogen 4.0 H Critical Care Note - Critical Care Note Total time excluding time spent on procedures (mins): 35 Comments: Multiple evaluation patient with sbo Discharge - Discharge Clinical Impression: Small bowel obstruction Condition: Good Disposition: ADMITTED INPATIENT Admitting Provider: Surgicalist Mo Ornelas Unit Admitted: OR
--- NOTE | 2017-12-09 14:35 | RADIOLOGY REPORT (SQ) ---
EXAM DESCRIPTION: CHEST SINGLE VIEW COMPLETED DATE/TIME: 12/09/2017 2:27 pm REASON FOR STUDY: sob fever COMPARISON: 05/31/2011 EXAM PARAMETERS: NUMBER OF VIEWS: One view. TECHNIQUE: Single frontal radiographic view of the chest acquired. RADIATION DOSE: NA LIMITATIONS: None. FINDINGS: LUNGS AND PLEURA: No acute infiltrates or effusions. MEDIASTINUM AND HILAR STRUCTURES: No masses. Contour normal. HEART AND VASCULAR STRUCTURES: Heart normal in size. Normal vasculature. BONES: No acute findings. HARDWARE: None in the chest. OTHER: Hiatal hernia. NG tube overlying stomach. Chest leads in place. IMPRESSION: Hiatal hernia. Otherwise, no acute disease. TECHNICAL DOCUMENTATION: JOB ID: [id number] [place]-69 2010 [employer]- All Rights Reserved
--- NOTE | 2017-12-09 14:36 | RADIOLOGY REPORT (SQ) ---
EXAM DESCRIPTION: KUB/ABDOMEN (SINGLE VIEW) COMPLETED DATE/TIME: 12/09/2017 2:27 pm REASON FOR STUDY: Check Placement of NG Tube COMPARISON: CT performed earlier on the same day. NUMBER OF VIEWS: One view. TECHNIQUE: Supine radiographic image of the abdomen acquired. LIMITATIONS: None. FINDINGS: BOWEL GAS PATTERN: Stable distension of small bowel loops consistent with obstruction. CALCIFICATIONS: No suspicious calcifications. SOFT TISSUES: No gross mass or suggestion of organomegaly. HARDWARE: Interval placement of nasogastric tube. BONES: No acute fracture. No worrisome bone lesions. OTHER: IV contrast seen within the renal collecting systems, ureters, and bladder compatible with pre ceding CT. IMPRESSION: SATISFACTORY PLACEMENT OF NASOGASTRIC TUBE. DILATED SMALL BOWEL LOOPS AGAIN NOTED COMPATIBLE WITH OBSTRUCTION. TECHNICAL DOCUMENTATION: JOB ID: [id number] [employer]- All Rights Reserved
[2017-12-09] MEDS ORDERED: FENTANYL CITRATE INJ/PF 100 MCG/2 ML AMPUL ONE ×2 (14:48→17:54)
[2017-12-09] MEDS ORDERED: HYDROMORPHONE HCL INJ/PF 2 MG/ML AMPULE ONE (14:48)
[2017-12-09] MEDS ORDERED: MIDAZOLAM 2 MG/2 ML INJ ONE (14:48)
[2017-12-09] MEDS ORDERED: PROPOFOL INJ 200 MG/20 ML VIAL IV ONE (14:49)
[2017-12-09] MEDS ORDERED: ACETAMINOPHEN 100 ML IV ONE (14:49)
[2017-12-09] MEDS ORDERED: FENTANYL CITRATE INJ/PF 100 MCG/2 ML AMPUL IV PRN ×3 (16:16)
[2017-12-09] MEDS ORDERED: MORPHINE SULFATE 10 MG/ML INJ IV PRN (16:16)
[2017-12-09] MEDS ORDERED: MEPERIDINE HCL/PF INJ 25 MG/1 ML DISP.SYRIN IV PRN (16:16)
[2017-12-09] MEDS ORDERED: PROMETHAZINE HCL INJ 25 MG/1 ML VIAL IV PRN ×2 (16:16)
[2017-12-09] MEDS ORDERED: DIPHENHYDRAMINE HCL 50 MG/ML VIAL IV PRN (16:16)
--- NOTE | 2017-12-09 17:21 | Operative Report ---
Operative Report DATE OF SURGERY: 12/09/17 PREOPERATIVE DIAGNOSIS: Small bowel obstruction POSTOPERATIVE DIAGNOSIS: same, secondary to adhesions OPERATION: exploratory laparotomy, extensive LUDWIG 1 hour SURGEON: BOSTON TOPETE 1ST THIOKOL OPERATOR: PEPPER SIDDIQI ANESTHESIA: GA TISSUE REMOVED OR ALTERED: none COMPLICATIONS: none ESTIMATED BLOOD LOSS: negligeable INTRAOPERATIVE FINDINGS: several loops of small bowel matter toghterh secondary to adhesions PROCEDURE: see dictation
[2017-12-09] MEDS ORDERED: ONDANSETRON HCL INJ/PF 4 MG/2 ML SDV IV PRN (17:28)
[2017-12-09] MEDS ORDERED: FAMOTIDINE INJ/PF 20 MG/2 ML SDV IV SCH (17:30)
[2017-12-09] MEDS ORDERED: DEXTROSE 40% GEL 15 GM TUBE PO PRN ×2 (17:44)
[2017-12-09] MEDS ORDERED: GLUCAGON,HUMAN RECOMB 1 MG INJ SUBCUT PRN (17:44)
[2017-12-09] MEDS ORDERED: DEXTROSE 50%-WATER 25 GM/50 ML DISP.SYRIN IV PRN ×2 (17:44)
[2017-12-09] MEDS ORDERED: FAMOTIDINE INJ/PF 20 MG/2 ML SDV IV ONE (17:54)
[2017-12-09] MEDS ORDERED: CEFOXITIN INJ 1 GM VIAL IV PRN (18:20)
[2017-12-09] MEDS ORDERED: MORPHINE SULFATE 60 MG/60 ML RTUINJ IV PRN (19:43)
[2017-12-09] MEDS: KETOROLAC TROMETHAMINE INJ/PF 30 MG/1 ML SDV IV PRN (20:08)
--- NOTE | 2017-12-09 22:10 | EKG REPORT ---
SEVERITY:- BORDERLINE ECG - SINUS RHYTHM BORDERLINE T ABNORMALITIES, DIFFUSE LEADS : Confirmed by: Leann Parada 09-Dec-2017 22:10:05
--- NOTE | 2017-12-09 22:11 | EKG REPORT ---
SEVERITY:- BORDERLINE ECG - SINUS RHYTHM BORDERLINE T ABNORMALITIES, DIFFUSE LEADS : Confirmed by: Leann Parada 09-Dec-2017 22:10:42
[2017-12-09] MEDS: CEFOXITIN SODIUM 2 GM in NORMAL SALINE 100 ML IV SCH (22:20)
[2017-12-10] MEDS ORDERED: CEFOXITIN INJ 1 GM VIAL ONE (02:58)
[2017-12-10 06:05] LABS: ABSOLUTE LYMPHOCYTES (AUTO) 1.5 10^3/uL (0.5-4.7); ABSOLUTE MONOCYTES (AUTO) 0.8 10^3/uL (0.1-1.4); ABSOLUTE NEUT (AUTO) 14.3 10^3/uL (1.7-8.2); BASOPHILS % (AUTO) 0.1 % (0-2); HEMATOCRIT 37.6 % (36.0-47.0); LYMPHOCYTES % (AUTO) 8.9 % (13-45); MEAN CORPUSCULAR HEMOGLOBIN 30.5 pg (27.0-33.4); MEAN CORPUSCULAR HGB CONC 32.8 g/dL (32.0-36.0); MEAN CORPUSCULAR VOLUME 93 fl (80-97); PLATELET COUNT 268 10^3/uL (150-450); RED BLOOD COUNT 4.05 10^6/uL (3.72-5.28); TOTAL CELLS COUNTED % (AUTO) 100 %; WHITE BLOOD COUNT 16.7 10^3/uL (4.0-10.5)
[2017-12-10 06:17] LABS: HEMOGLOBIN 12.4 g/dL (12.0-15.5)
[2017-12-10 06:34] LABS: ANION GAP 5 (5-19); BLOOD UREA NITROGEN 15 mg/dL (7-20); CALCIUM 9.2 mg/dL (8.4-10.2); CARBON DIOXIDE 28 mmol/L (22-30); CHLORIDE 103 mmol/L (98-107); GLUCOSE 115 mg/dL (75-110); POTASSIUM 4.4 mmol/L (3.6-5.0); SODIUM 136.1 mmol/L (137-145)
[2017-12-10] MEDS: CEFOXITIN SODIUM 2 GM in NORMAL SALINE 100 ML IV SCH ×3 (06:45→21:37)
[2017-12-10] MEDS: KETOROLAC TROMETHAMINE INJ/PF 30 MG/1 ML SDV IV PRN ×2 (07:46→21:37)
[2017-12-10] MEDS: ENOXAPARIN SODIUM INJ 40 MG/0.4 ML DISP.SYRIN SUBCUT SCH (09:05)
[2017-12-10] MEDS: FAMOTIDINE INJ/PF 20 MG/2 ML SDV IV SCH ×2 (09:05→21:37)
--- NOTE | 2017-12-10 14:29 | PDOC PROGRESS REPORT ---
Subjective Progress Note for:: 12/10/17 Subjective:: comfortable, minimal abdominal pain, no bowel function yet Reason For Visit: SMALL BOWEL MECHANICAL OBSTRUCTION Physical Exam Vital Signs: Temp Pulse Resp BP Pulse Ox 98.8 F 51 L 18 129/57 H 95 12/10/17 11:39 12/10/17 14:00 12/10/17 11:39 12/10/17 11:39 12/10/17 11:39 Intake & Output 12/09/17 12/10/17 12/11/17 06:59 06:59 06:59 Intake Total 3200 Output Total 3525 Balance -325 Weight 107.6 kg General appearance: PRESENT: no acute distress Respiratory exam: PRESENT: clear to auscultation gilmar Cardiovascular exam: PRESENT: RRR GI/Abdominal exam: PRESENT: distended, hypoactive bowel sounds, soft, other - incision c/f/d/i Results Laboratory Results: 12/10/17 05:18 12/10/17 05:18 12/09/17 12/10/17 12/10/17 16:36 05:18 05:18 WBC 16.7 H RBC 4.05 Hgb 12.4 D Hct 37.6 MCV 93 MCH 30.5 MCHC 32.8 RDW 14.0 Plt Count 268 Seg Neutrophils % 86.0 H Lymphocytes % 8.9 L Monocytes % 5.0 Eosinophils % 0.0 Basophils % 0.1 Absolute Neutrophils 14.3 H Absolute Lymphocytes 1.5 Absolute Monocytes 0.8 Absolute Eosinophils 0.0 Absolute Basophils 0.0 Sodium 136.1 L Potassium 4.4 Chloride 103 Carbon Dioxide 28 Anion Gap 5 BUN 15 Creatinine 0.88 Est GFR ( Amer) > 60 Est GFR (Non-Af Amer) > 60 Glucose 115 H Calcium 9.2 Blood Type O POSITIVE Antibody Screen NEGATIVE Impressions: Abdomen/Pelvis CT 12/09/17 00:00 IMPRESSION: PERSISTENT DISTAL SMALL BOWEL OBSTRUCTION WITH SLIGHT INCREASED IN AMOUNT OF FREE ABDOMINAL FLUID. NO PNEUMATOSIS OR FREE AIR. ADDITIONAL CHRONIC CHANGES ABOVE. KUB X-Ray 12/09/17 12:55 IMPRESSION: SATISFACTORY PLACEMENT OF NASOGASTRIC TUBE. DILATED SMALL BOWEL LOOPS AGAIN NOTED COMPATIBLE WITH OBSTRUCTION. Chest X-Ray 12/09/17 13:34 IMPRESSION: Hiatal hernia. Otherwise, no acute disease. Assessment & Plan - Plan Summary Plan Summary: A/ POD#1 after exploratory laparotomy, extrensive LUDWIG VSS, AF Still moderate NGT output Good urine output No bowel function yet Leukocytosis, most likely reactive BMP normal P/ continue current management until bowel function returns
[2017-12-10] MEDS ORDERED: NORMAL SALINE 1000 ML 1,000 ML IV ONE (15:30)
[2017-12-10] MEDS: NORMAL SALINE 1000 ML 1,000 ML IV PRN ×2 (15:45→23:13)
[2017-12-11] MEDS: CEFOXITIN SODIUM 2 GM in NORMAL SALINE 100 ML IV SCH (05:09)
[2017-12-11 05:25] LABS: ABSOLUTE BASOPHILS # (AUTO) 0.1 10^3/uL (0.0-0.2); ABSOLUTE EOSINOPHILS # (AUTO) 0.3 10^3/uL (0.0-0.6); ABSOLUTE LYMPHOCYTES (AUTO) 1.6 10^3/uL (0.5-4.7); ABSOLUTE MONOCYTES (AUTO) 0.7 10^3/uL (0.1-1.4); ABSOLUTE NEUT (AUTO) 7.9 10^3/uL (1.7-8.2); BASOPHILS % (AUTO) 0.9 % (0-2); EOSINOPHILS % (AUTO) 2.9 % (0-6); HEMATOCRIT 34.5 % (36.0-47.0); HEMOGLOBIN 11.6 g/dL (12.0-15.5); LYMPHOCYTES % (AUTO) 15.2 % (13-45); MEAN CORPUSCULAR HEMOGLOBIN 31.2 pg (27.0-33.4); MEAN CORPUSCULAR HGB CONC 33.6 g/dL (32.0-36.0); MEAN CORPUSCULAR VOLUME 93 fl (80-97); MONOCYTES % (AUTO) 6.8 % (3-13); PLATELET COUNT 198 10^3/uL (150-450); RED BLOOD COUNT 3.72 10^6/uL (3.72-5.28); RED CELL DISTRIBUTION WIDTH 13.9 % (11.5-14.0); SEGMENTED NEUTROPHILS % (AUTO) 74.2 % (42-78); TOTAL CELLS COUNTED % (AUTO) 100 %; WHITE BLOOD COUNT 10.7 10^3/uL (4.0-10.5)
[2017-12-11 05:43] LABS: ANION GAP 7 (5-19); BLOOD UREA NITROGEN 20 mg/dL (7-20); CALCIUM 8.7 mg/dL (8.4-10.2); CARBON DIOXIDE 22 mmol/L (22-30); CHLORIDE 109 mmol/L (98-107); GLUCOSE 78 mg/dL (75-110); POTASSIUM 3.8 mmol/L (3.6-5.0); SODIUM 137.6 mmol/L (137-145)
[2017-12-11] MEDS: NORMAL SALINE 1000 ML 1,000 ML IV PRN ×2 (07:12→17:43)
[2017-12-11] MEDS: FAMOTIDINE INJ/PF 20 MG/2 ML SDV IV SCH (09:34)
[2017-12-11] MEDS: ENOXAPARIN SODIUM INJ 40 MG/0.4 ML DISP.SYRIN SUBCUT SCH (09:34)
--- NOTE | 2017-12-11 11:10 | PDOC PROGRESS REPORT ---
Subjective Progress Note for:: 12/11/17 Subjective:: Patient has no complaints; got out of bed to chair today. NG tube and Glasgow still in; minimal gastric drainage Reason For Visit: SMALL BOWEL MECHANICAL OBSTRUCTION Physical Exam Vital Signs: Temp Pulse Resp BP Pulse Ox 97.8 F 57 L 16 145/52 H 94 12/11/17 08:02 12/11/17 08:02 12/11/17 08:02 12/11/17 08:02 12/11/17 08:02 Intake & Output 12/10/17 12/11/17 12/12/17 06:59 06:59 06:59 Intake Total 3200 0 Output Total 3525 1000 Balance -325 -1000 Weight 107.6 kg 107.4 kg General appearance: PRESENT: no acute distress GI/Abdominal exam: PRESENT: other - Operative dressing removed; inferior aspect of wound Wolf drain removed; no cellulitis; minimal liquefied blood evacuated from inferior aspect of wound. Results Laboratory Results: 12/11/17 05:06 12/11/17 05:06 12/11/17 12/11/17 05:06 05:06 WBC 10.7 H RBC 3.72 Hgb 11.6 L Hct 34.5 L MCV 93 MCH 31.2 MCHC 33.6 RDW 13.9 Plt Count 198 Seg Neutrophils % 74.2 Lymphocytes % 15.2 Monocytes % 6.8 Eosinophils % 2.9 Basophils % 0.9 Absolute Neutrophils 7.9 Absolute Lymphocytes 1.6 Absolute Monocytes 0.7 Absolute Eosinophils 0.3 Absolute Basophils 0.1 Sodium 137.6 Potassium 3.8 Chloride 109 H Carbon Dioxide 22 Anion Gap 7 BUN 20 Creatinine 0.75 Est GFR ( Amer) > 60 Est GFR (Non-Af Amer) > 60 Glucose 78 Calcium 8.7 Impressions: Abdomen/Pelvis CT 12/09/17 00:00 IMPRESSION: PERSISTENT DISTAL SMALL BOWEL OBSTRUCTION WITH SLIGHT INCREASED IN AMOUNT OF FREE ABDOMINAL FLUID. NO PNEUMATOSIS OR FREE AIR. ADDITIONAL CHRONIC CHANGES ABOVE. KUB X-Ray 12/09/17 12:55 IMPRESSION: SATISFACTORY PLACEMENT OF NASOGASTRIC TUBE. DILATED SMALL BOWEL LOOPS AGAIN NOTED COMPATIBLE WITH OBSTRUCTION. Chest X-Ray 12/09/17 13:34 IMPRESSION: Hiatal hernia. Otherwise, no acute disease. Assessment & Plan - Diagnosis (1) Small bowel obstruction Is this a current diagnosis for this admission?: Yes Plan: Vision is postoperative day 2 status post exploratory laparotomy, lysis of adhesions through the midline incision doing well, no complications. Plan: 1. DC Glasgow catheter; clamp NG tube, consider removal if no nausea or vomiting. 2. Increase ambulation in hallway 3. Continue intravenous antibiotics when appropriate
[2017-12-11] MEDS ORDERED: ONDANSETRON HCL INJ/PF 4 MG/2 ML SDV IV PRN (12:00)
--- NOTE | 2017-12-11 13:42 | OPERATIVE REPORT E ---
Operative Report NAME: BRIDGETTE BOONE : 1950 AGE: 67Y DATE OF SURGERY: 12/09/2017 ROOM: 401 PREOPERATIVE DIAGNOSIS: Small bowel mechanical obstruction secondary to adhesions. POSTOPERATIVE DIAGNOSIS: Small bowel mechanical obstruction secondary to adhesions. PROCEDURE: 1. Exploratory laparotomy. 2. Extensive lysis of adhesions lasting 1 hour. SURGEON: BOSTON TOPETE M.D. ANESTHESIA: General. FLUIDS: 1 L. URINE OUTPUT: 100. BLOOD LOSS: 30 mL. DRAINS: None. INDICATIONS AND FINDINGS: An elderly 67-year-old female with a history of abdominal pain and distention. She came to the hospital about a week ago with the above symptoms, including obstipation. After 2 days of conservative management, her bowel function returned. She was therefore discharged to home and 3 days after the discharge, the patient presented again with abdominal distention, nausea, vomiting, and constipation. She was seen in the emergency room today. CAT scan of the abdomen and pelvis was repeated revealing impression of complete mechanical small bowel obstruction. She was taken to Surgery to undergo emergent laparotomy. DESCRIPTION OF PROCEDURE: The procedure was done in the operating room. Patient was placed in supine position. General anesthesia was induced by endotracheal intubation. Nasogastric tube was already in place. Glasgow catheter was inserted. The abdomen was prepped and draped in the usual sterile fashion. A midline incision was made from just above the umbilicus down to about 3-4 fingerbreadths below the umbilicus. The subcutaneous fat and linea alba were divided with Bovie. The peritoneal cavity was entered. A small amount of clear ascites was obtained and aspirated. The small bowel was then run and found to be distended with multiple adhesions, which were causing the small bowel loops to be matted with each other, were identified and those were taken down both bluntly, sharply, and with Bovie. The procedure lasted about an hour until the small bowel was run multiple times proximal to distal and distal to proximal without evidence of further adhesions. The peritoneal cavity was irrigated with 2 L of normal saline, which was fully aspirated. The abdominal wall was closed with running #1 looped PDS suture. Of note, is that the upper half of the abdominal wall fascia was reinforced by a piece of mesh, which was inserted at the time of the original Leigh fundoplication. The linea alba was closed with a running #1 looped PDS suture without difficulty. A Hollins quarter-inch drain was placed in the subcutaneous fat and the skin was closed over the drain. Sterile dressings were applied. The patient tolerated the procedure well, extubated, and transferred to recovery room in satisfactory condition. DICTATING PHYSICIAN: BOSTON TOPETE M.D. [id number] PHY#: [id number] ID: [id number] JOB#: [id number] ACCT: [id number] cc:BOSTON TOPETE M.D. > MTDD
[2017-12-12] MEDS: FAMOTIDINE INJ/PF 20 MG/2 ML SDV IV SCH ×3 (02:04→21:59)
[2017-12-12 05:30] LABS: ABSOLUTE BASOPHILS # (AUTO) 0.1 10^3/uL (0.0-0.2); ABSOLUTE EOSINOPHILS # (AUTO) 0.5 10^3/uL (0.0-0.6); ABSOLUTE LYMPHOCYTES (AUTO) 1.3 10^3/uL (0.5-4.7); ABSOLUTE MONOCYTES (AUTO) 0.6 10^3/uL (0.1-1.4); ABSOLUTE NEUT (AUTO) 4.9 10^3/uL (1.7-8.2); BASOPHILS % (AUTO) 0.7 % (0-2); HEMATOCRIT 32.7 % (36.0-47.0); LYMPHOCYTES % (AUTO) 17.4 % (13-45); MEAN CORPUSCULAR HEMOGLOBIN 31.1 pg (27.0-33.4); MEAN CORPUSCULAR HGB CONC 33.7 g/dL (32.0-36.0); MEAN CORPUSCULAR VOLUME 92 fl (80-97); MONOCYTES % (AUTO) 7.8 % (3-13); PLATELET COUNT 187 10^3/uL (150-450); RED BLOOD COUNT 3.55 10^6/uL (3.72-5.28); RED CELL DISTRIBUTION WIDTH 13.5 % (11.5-14.0); SEGMENTED NEUTROPHILS % (AUTO) 67.1 % (42-78); TOTAL CELLS COUNTED % (AUTO) 100 %; WHITE BLOOD COUNT 7.3 10^3/uL (4.0-10.5)
[2017-12-12 05:51] LABS: ANION GAP 7 (5-19); BLOOD UREA NITROGEN 16 mg/dL (7-20); CALCIUM 8.1 mg/dL (8.4-10.2); CARBON DIOXIDE 23 mmol/L (22-30); CHLORIDE 108 mmol/L (98-107); GLUCOSE 64 mg/dL (75-110); SODIUM 137.7 mmol/L (137-145)
[2017-12-12] MEDS: ENOXAPARIN SODIUM INJ 40 MG/0.4 ML DISP.SYRIN SUBCUT SCH (10:17)
[2017-12-12] MEDS ORDERED: ACETAMINOPHEN 325 MG TABLET PO PRN (10:37)
--- NOTE | 2017-12-12 11:05 | PDOC PROGRESS REPORT ---
Subjective Progress Note for:: 12/12/17 Subjective:: comfortable, passing flatus and stools Reason For Visit: SMALL BOWEL OBSTRUCTION Physical Exam Vital Signs: Temp Pulse Resp BP Pulse Ox 97.7 F 54 L 20 145/58 H 95 12/12/17 07:28 12/12/17 07:28 12/12/17 07:28 12/12/17 07:28 12/12/17 07:28 Intake & Output 12/11/17 12/12/17 12/13/17 06:59 06:59 06:59 Intake Total 0 200 Output Total 1000 Balance -1000 200 Weight 107.4 kg 107.5 kg General appearance: PRESENT: no acute distress, cooperative Respiratory exam: PRESENT: clear to auscultation gilmar Cardiovascular exam: PRESENT: RRR GI/Abdominal exam: PRESENT: soft, other - laparotomy wound c/d/i Results Laboratory Results: 12/12/17 04:48 12/12/17 04:48 12/12/17 12/12/17 04:48 04:48 WBC 7.3 RBC 3.55 L Hgb 11.0 L Hct 32.7 L MCV 92 MCH 31.1 MCHC 33.7 RDW 13.5 Plt Count 187 Seg Neutrophils % 67.1 Lymphocytes % 17.4 Monocytes % 7.8 Eosinophils % 7.0 H Basophils % 0.7 Absolute Neutrophils 4.9 Absolute Lymphocytes 1.3 Absolute Monocytes 0.6 Absolute Eosinophils 0.5 Absolute Basophils 0.1 Sodium 137.7 Potassium 4.0 Chloride 108 H Carbon Dioxide 23 Anion Gap 7 BUN 16 Creatinine 0.72 Est GFR ( Amer) > 60 Est GFR (Non-Af Amer) > 60 Glucose 64 L Calcium 8.1 L Impressions: Abdomen/Pelvis CT 12/09/17 00:00 IMPRESSION: PERSISTENT DISTAL SMALL BOWEL OBSTRUCTION WITH SLIGHT INCREASED IN AMOUNT OF FREE ABDOMINAL FLUID. NO PNEUMATOSIS OR FREE AIR. ADDITIONAL CHRONIC CHANGES ABOVE. KUB X-Ray 12/09/17 12:55 IMPRESSION: SATISFACTORY PLACEMENT OF NASOGASTRIC TUBE. DILATED SMALL BOWEL LOOPS AGAIN NOTED COMPATIBLE WITH OBSTRUCTION. Chest X-Ray 12/09/17 13:34 IMPRESSION: Hiatal hernia. Otherwise, no acute disease. Assessment & Plan - Diagnosis (1) Small bowel obstruction Is this a current diagnosis for this admission?: Yes - Plan Summary Plan Summary: A/ POD# 3 after laparotomy and LUDWIG VSS, AF No c/o Bowel function returned P/ Remove IVF (patient has lost her IV site) Clear liquid diet Advance to full liquid tonight and regular diet in AM Tylenol 325 mg po q4 prn pain Possible discharge in AM
[2017-12-13 07:07] LABS: ANION GAP 6 (5-19); BLOOD UREA NITROGEN 11 mg/dL (7-20); CALCIUM 8.9 mg/dL (8.4-10.2); CARBON DIOXIDE 26 mmol/L (22-30); CHLORIDE 107 mmol/L (98-107); GLUCOSE 88 mg/dL (75-110); POTASSIUM 3.7 mmol/L (3.6-5.0); SODIUM 138.7 mmol/L (137-145)
[2017-12-13 07:16] LABS: ABSOLUTE BASOPHILS # (AUTO) 0.1 10^3/uL (0.0-0.2); ABSOLUTE EOSINOPHILS # (AUTO) 0.6 10^3/uL (0.0-0.6); ABSOLUTE LYMPHOCYTES (AUTO) 1.7 10^3/uL (0.5-4.7); ABSOLUTE MONOCYTES (AUTO) 0.6 10^3/uL (0.1-1.4); ABSOLUTE NEUT (AUTO) 3.8 10^3/uL (1.7-8.2); BASOPHILS % (AUTO) 0.8 % (0-2); EOSINOPHILS % (AUTO) 8.5 % (0-6); HEMATOCRIT 34.1 % (36.0-47.0); HEMOGLOBIN 11.5 g/dL (12.0-15.5); LYMPHOCYTES % (AUTO) 24.6 % (13-45); MEAN CORPUSCULAR HEMOGLOBIN 31.2 pg (27.0-33.4); MEAN CORPUSCULAR HGB CONC 33.8 g/dL (32.0-36.0); MEAN CORPUSCULAR VOLUME 92 fl (80-97); PLATELET COUNT 197 10^3/uL (150-450); RED CELL DISTRIBUTION WIDTH 13.7 % (11.5-14.0); SEGMENTED NEUTROPHILS % (AUTO) 57.1 % (42-78); TOTAL CELLS COUNTED % (AUTO) 100 %; WHITE BLOOD COUNT 6.7 10^3/uL (4.0-10.5)
--- NOTE | 2017-12-13 08:08 | PDOC PROGRESS REPORT ---
Subjective Progress Note for:: 12/13/17 Subjective:: no c/o, flatus present Reason For Visit: SMALL BOWEL OBSTRUCTION Physical Exam Vital Signs: Temp Pulse Resp BP Pulse Ox 98.5 F 55 L 16 146/60 H 97 12/13/17 03:11 12/13/17 03:11 12/13/17 03:11 12/13/17 03:11 12/13/17 03:11 Intake & Output 12/12/17 12/13/17 12/14/17 06:59 06:59 06:59 Intake Total 200 890 Balance 200 890 Weight 107.5 kg 107.1 kg General appearance: PRESENT: no acute distress Respiratory exam: PRESENT: clear to auscultation gilmar Cardiovascular exam: PRESENT: RRR GI/Abdominal exam: PRESENT: normal bowel sounds, other - wound c/d/i Results Laboratory Results: 12/13/17 04:55 12/13/17 04:55 Sodium 138.7 Potassium 3.7 Chloride 107 Carbon Dioxide 26 Anion Gap 6 BUN 11 Creatinine 0.68 Est GFR ( Amer) > 60 Est GFR (Non-Af Amer) > 60 Glucose 88 Calcium 8.9 Impressions: Abdomen/Pelvis CT 12/09/17 00:00 IMPRESSION: PERSISTENT DISTAL SMALL BOWEL OBSTRUCTION WITH SLIGHT INCREASED IN AMOUNT OF FREE ABDOMINAL FLUID. NO PNEUMATOSIS OR FREE AIR. ADDITIONAL CHRONIC CHANGES ABOVE. KUB X-Ray 12/09/17 12:55 IMPRESSION: SATISFACTORY PLACEMENT OF NASOGASTRIC TUBE. DILATED SMALL BOWEL LOOPS AGAIN NOTED COMPATIBLE WITH OBSTRUCTION. Chest X-Ray 12/09/17 13:34 IMPRESSION: Hiatal hernia. Otherwise, no acute disease. Assessment & Plan - Diagnosis (1) Small bowel obstruction Is this a current diagnosis for this admission?: Yes - Plan Summary Plan Summary: A/ POD #4 aftr laparotomy, LUDWIG VSS, AF flatus prsent po toelrated PE unremarkable P/ fleet enema before discharge discharge after BM follow up in office in 2 weeks Shower only until wound clips in place Activities as toelrated no lifting > 10 pounds x 3 months regular diet Tylenol as needed for pain
[2017-12-13] MEDS ORDERED: NA PHOS,M-B/NA PHOS,DI-BA (ADULT) 133 ML ENEMA PR ONE (08:16)
--- NOTE | 2017-12-13 08:28 | DISCHARGE SUMMARY E ---
Discharge Summary NAME: BRIDGETTE BOONE : 1950 AGE: 67Y ADMITTED: 12/09/2017 DISCHARGED: 12/13/2017 FINAL DIAGNOSIS: Small bowel obstruction. PROCEDURE: Done 12/09/2017. The patient had an exploratory laparotomy and lysis of adhesions. COMPLICATIONS: None. HOSPITAL COURSE: This is a morbidly obese 67-year-old female who presented to the hospital on 12/09 with a history of abdominal distention, obstipation, nausea, vomiting, found to have complete small bowel obstruction on CAT scan. The patient was taken to surgery the same day and underwent a laparotomy and lysis of adhesions. The procedure was uneventful. The patient was then transferred to the floor. Her postop course was uneventful. The patient remained n.p.o. for the first 2 postop days. The nasogastric tube was then removed and diet was advanced from clear to regular diet. On the day of discharge, the patient was able to take p.o. well. The vital signs were stable, physical exam unremarkable, blood work within normal limits. The abdominal wound was clean, dry, intact. DISCHARGE ORDERS: The patient was discharged home on 12/13. She was given followup appointment in [address] Garcia in the office. She was instructed to shower only until the office appointment. She was given a regular diet, Tylenol as needed by mouth for pain. She was instructed note to lift any weight more than 10 pounds for about 3 months. She was instructed to resume her own medications. DICTATING PHYSICIAN: BOSTON TOPETE M.D. [id number] PHY#: [id number] ID: [id number] JOB#: [id number] ACCT: [id number] cc:BOSTON TOPETE M.D. EMary Mary [facility], [place]
[2017-12-13 10:06] VITALS: BP 151/63
[2017-12-13] MEDS ORDERED: NA PHOS,M-B/NA PHOS,DI-BA (ADULT) 133 ML ENEMA PR PRN (10:30)
[2017-12-13] MEDS: ENOXAPARIN SODIUM INJ 40 MG/0.4 ML DISP.SYRIN SUBCUT SCH (10:36)
[2017-12-13] MEDS: FAMOTIDINE INJ/PF 20 MG/2 ML SDV IV SCH (10:36)
== END 2017-12-13 10:44 | disposition home or self-care (01) | DRG 337 ==
LOC: ER 06:32 → EH 14:17 → 2S 19:02 → 4N 23:53
PROVIDERS: ADMIT Surgery; ATTEND Surgery
PROC: 0D9670Z Drainage of Stomach with Drainage Device, Via Natural or Artificial Opening (ICD-10-PCS; 2017-12-09)
PROC: 0DN80ZZ Release Small Intestine, Open Approach (ICD-10-PCS; principal; 2017-12-09 15:30)
DX: K56.52 Intestinal adhesions [bands] with complete obstruction (principal); I48.91 Unspecified atrial fibrillation; E66.9 Obesity, unspecified; K21.9 Gastro-esophageal reflux disease without esophagitis; M19.90 Unspecified osteoarthritis, unspecified site; Z90.49 Acquired absence of other specified parts of digestive tract; Z96.652 Presence of left artificial knee joint; Z88.1 Allergy status to other antibiotic agents; Z68.39 Body mass index [BMI] 39.0-39.9, adult
CPT/HCPCS: 36415; 71045; 74018; 74177; 790; 80048; 80053; 81001; 83605; 83690; 85025; 86850; 86900; 86901; 93005; 93010; 96361; 96372; 96374; 96375; 96376; 99291; J0131; J0330; J0500; J0694; J1100; J1170; J1650; J1885; J2250; J2405; J2550; J2704; J3010; J3490; J7030; S0028

== ENCOUNTER 2017-12-19 01:15 | Inpatient (IN) | payer BC, MEDICARE ==
[2017-12-19] MEDS ORDERED: METOCLOPRAMIDE HCL INJ/PF 10 MG/2 ML SDV IV ONE (01:47)
[2017-12-19] MEDS ORDERED: NORMAL SALINE 1000 ML 500 ML IV ONE (01:47)
[2017-12-19] MEDS ORDERED: HYDROMORPHONE HCL INJ/PF 2 MG/ML AMPULE IV ONE (01:47)
--- NOTE | 2017-12-19 01:49 | ER Document Report ---
ED GI/ - General Chief Complaint: Abdominal Pain Stated Complaint: ABDOMINAL PAIN Time Seen by Provider: 12/19/17 01:36 Notes: Patient is a 67-year-old female that comes emergency department for chief complaint of sharp upper abdominal pain that started this afternoon and evening , she is 1 week status post bowel surgery to correct a small bowel obstruction, this was performed by Dr. Ornelas at this facility, patient states that she had been doing very well but she had 2 hard bowel movements, she took milk of magnesia, states afterwards her pain began. She cannot vomit because she has had a Leigh fundoplication. She denies fever, she does report some clear drainage from her abdominal wound but this has already been evaluated. Past medical history also includes atrial fibrillation, on diltiazem, not on a blood thinner. TRAVEL OUTSIDE OF THE [place] IN LAST 30 DAYS: No - Related Data Allergies/Adverse Reactions: doxycycline [Doxycycline] Allergy (Severe, Verified 12/09/17 06:39) Past Medical History - General Information source: Patient - Social History Smoking Status: Never Smoker Frequency of alcohol use: None Drug Abuse: None Lives with: Family Family History: Reviewed & Not Pertinent - Past Medical History Cardiac Medical History: Reports: Hx Atrial Fibrillation Denies: Hx Coronary Artery Disease, Hx Heart Attack, Hx Hypertension Pulmonary Medical History: Denies: Hx Asthma, Hx Bronchitis, Hx COPD, Hx Pneumonia Neurological Medical History: Denies: Hx Cerebrovascular Accident, Hx Seizures Renal/ Medical History: Denies: Hx Peritoneal Dialysis GI Medical History: Reports: Hx Gastroesophageal Reflux Disease, Hx Hiatal Hernia - hx of repair, takes nexium. Denies: Hx Hepatitis, Hx Ulcer Musculoskeltal Medical History: Reports Hx Arthritis - mobic prn Infectious Medical History: Denies: Hx Hepatitis Past Surgical History: Reports: Hx Cholecystectomy, Hx Orthopedic Surgery - left knee replacement, Other - open Leigh fundoplication. Denies: Hx Mastectomy, Hx Open Heart Surgery, Hx Pacemaker - Immunizations Hx Diphtheria, Pertussis, Tetanus Vaccination: Yes Hx Pneumococcal Vaccination: 10/23/12 Review of Systems - Review of Systems Constitutional: No symptoms reported EENT: No symptoms reported Cardiovascular: No symptoms reported Respiratory: No symptoms reported Gastrointestinal: See HPI Genitourinary: No symptoms reported Female Genitourinary: No symptoms reported Musculoskeletal: No symptoms reported Skin: No symptoms reported Hematologic/Lymphatic: No symptoms reported Neurological/Psychological: No symptoms reported Physical Exam - Vital signs Vitals: Temp Pulse Resp BP Pulse Ox 98.3 F 111 H 18 158/85 H 98 12/19/17 01:21 12/19/17 01:21 12/19/17 01:21 12/19/17 01:21 12/19/17 01:21 - General General appearance: Anxious In distress: Moderate - HEENT Head: Normocephalic, Atraumatic Eyes: Normal Conjunctiva: Normal Extraocular movements intact: Yes Eyelashes: Normal Pupils: PERRL Mouth/Lips: Normal Mucous membranes: Normal Pharynx: Normal Neck: Normal - Respiratory Respiratory status: No respiratory distress Breath sounds: Normal. No: Decreased air movement, Wheezing - Cardiovascular Rhythm: Regular, Tachycardia Heart sounds: Normal auscultation, S1 appreciated, S2 appreciated Murmur: No Normal capillary refill: Yes - Abdominal Inspection: Other - Ventral stapled postsurgical wound with one staple missing and clear fluid drainage, no significant surrounding erythema, no other abnormality noted Tenderness: Tender - Generalized distention and generalized tenderness of the abdomen, no focal tenderness, no rigidity - Back Back: Normal, Nontender. No: Tender - Extremities General upper extremity: Normal inspection, Nontender, Normal ROM, Normal strength General lower extremity: Normal inspection, Nontender, Edema - Bilateral mild 1 + edema, Normal ROM, Normal strength - Neurological Neuro grossly intact: Yes Cognition: Normal Orientation: AAOx4 Terrie Coma Scale Eye Opening: Spontaneous Terrie Coma Scale Verbal: Oriented [place] Coma Scale Motor: Obeys Commands Terrie Coma Scale Total: 15 Speech: Normal Motor strength normal: LUE, RUE, LLE, RLE Sensory: Normal - Skin Skin Temperature: Warm Skin Moisture: Dry Skin Color: Normal Course - Re-evaluation Re-evalutation: On initial examination patient is very uncomfortable, tachycardic, after pain medication and nausea medication she relaxed and became almost asymptomatic. Wound is draining clear fluid but does not appear infected, no fever. Mild leukocytosis on CBC with no bandemia. Chemistry unremarkable. Acute abdominal series concerning for developing small bowel obstruction. Patient tolerated contrast well, CAT scan performed with IV and oral contrast, Dr. Batista in the department, evaluated the CAT scan, concern for possible inflammation and developing obstruction with distended stomach full of contents. Recommends nasogastric tube, Zosyn, admission to surgical service. CAT scan read reports partial small bowel obstruction versus ileus. Patient tolerated nasogastric tube very well, large amount of contents initially suctioned out. Patient with significant relief of her symptoms. - Vital Signs Vital signs: Temp Pulse Resp BP Pulse Ox 98.3 F 111 H 18 158/85 H 98 12/19/17 01:21 12/19/17 01:21 12/19/17 01:21 12/19/17 01:21 12/19/17 01:21 - Laboratory Result Diagrams: 12/19/17 02:00 12/19/17 02:00 Laboratory results interpreted by me: 12/19/17 12/19/17 02:00 02:00 WBC 12.7 H Absolute Neutrophils 9.6 H BUN 21 H Est GFR (Non-Af Amer) 53 L Glucose 149 H Direct Bilirubin 0.5 H Total Protein 6.1 L Discharge - Discharge Clinical Impression: Partial small bowel obstruction Abdominal pain Qualifiers: Abdominal location: generalized Qualified Code(s): R10.84 - Generalized abdominal pain Condition: Stable Disposition: ADMITTED INPATIENT Admitting Provider: Surgicalist Unit Admitted: Surgical Floor
[2017-12-19 02:24] LABS: ABSOLUTE BASOPHILS # (AUTO) 0.1 10^3/uL (0.0-0.2); ABSOLUTE EOSINOPHILS # (AUTO) 0.5 10^3/uL (0.0-0.6); ABSOLUTE MONOCYTES (AUTO) 0.6 10^3/uL (0.1-1.4); ABSOLUTE NEUT (AUTO) 9.6 10^3/uL (1.7-8.2); BASOPHILS % (AUTO) 0.6 % (0-2); EOSINOPHILS % (AUTO) 3.7 % (0-6); HEMATOCRIT 44.1 % (36.0-47.0); HEMOGLOBIN 14.7 g/dL (12.0-15.5); LYMPHOCYTES % (AUTO) 15.6 % (13-45); MEAN CORPUSCULAR HEMOGLOBIN 30.6 pg (27.0-33.4); MEAN CORPUSCULAR HGB CONC 33.2 g/dL (32.0-36.0); MEAN CORPUSCULAR VOLUME 92 fl (80-97); MONOCYTES % (AUTO) 4.5 % (3-13); PLATELET COUNT 328 10^3/uL (150-450); RED BLOOD COUNT 4.79 10^6/uL (3.72-5.28); RED CELL DISTRIBUTION WIDTH 13.9 % (11.5-14.0); SEGMENTED NEUTROPHILS % (AUTO) 75.6 % (42-78); TOTAL CELLS COUNTED % (AUTO) 100 %; WHITE BLOOD COUNT 12.7 10^3/uL (4.0-10.5)
[2017-12-19 02:29] LABS: ALANINE AMINOTRANSFERASE 32 U/L (9-52); ALBUMIN 3.7 g/dL (3.5-5.0); ALKALINE PHOSPHATASE 76 U/L (38-126); ANION GAP 12 (5-19); ASPARTATE AMINO TRANSFERASE 15 U/L (14-36); BILIRUBIN,DIRECT 0.5 mg/dL (0.0-0.4); BILIRUBIN,TOTAL 0.5 mg/dL (0.2-1.3); BLOOD UREA NITROGEN 21 mg/dL (7-20); CALCIUM 9.7 mg/dL (8.4-10.2); CARBON DIOXIDE 24 mmol/L (22-30); CHLORIDE 102 mmol/L (98-107); GLUCOSE 149 mg/dL (75-110); SODIUM 138.3 mmol/L (137-145); TOTAL PROTEIN 6.1 g/dL (6.3-8.2)
--- NOTE | 2017-12-19 03:01 | RADIOLOGY REPORT (SQ) ---
EXAM DESCRIPTION: ACUTE ABDOMEN SERIES CLINICAL HISTORY: 67 years, Female, abd pain, vomiting, hx obstruction COMPARISON: 12/03/17 LIMITATIONS: None. FINDINGS: 4.9 cm dilated small bowel loops with air-fluid levels of the left paracentral and mid abdomen, moderate gaseous gastric distention, herniorrhaphy clips of the mid abdomen, midline surgical skin clips of the midline pelvis. Right upper abdominal clips. Right colonic stool retention. IMPRESSION: Moderate small bowel obstruction and/or ileus pattern consistent with prior exam.
--- NOTE | 2017-12-19 06:05 | RADIOLOGY REPORT (SQ) ---
EXAM DESCRIPTION: CT ABD/PELVIS WITH IV ORAL CLINICAL HISTORY: 67 years Female, eval abd pain post op and obstruction COMPARISON: 12/09/17 TECHNIQUE: 100 mL Isovue-370 IV and oral contrast. Coronal and sagittal reformat. This exam was performed according to our departmental dose-optimization program, which includes automated exposure control, adjustment of the mA and/or kV according to patient size and/or use of iterative reconstruction technique. FINDINGS: Moderate gastric and small bowel dilation with air-fluid levels. Fluid retention within the colon. Air-fluid levels of the right colon. Orally administered contrast is seen to the level of the proximal large colon. No focal transition zone. 10 cm hiatal hernia. Herniorrhaphy clips and mesh of the anterior abdominal wall with closely approximated small bowel which may indicate adhesive disease. Moderate colonic diverticulosis. Moderate hepatic steatosis. Moderate, likely benign left renal and parapelvic cysts. Small right likely benign renal cyst. Cholecystectomy clips. Moderate disc desiccation. Inferior thorax, liver, pancreas, spleen, splenule, adrenals, renal system, pelvic organs, lymphatics, vasculature, and musculoskeleton appear otherwise unremarkable. IMPRESSION: Moderate dilated small bowel with air-fluid levels suggest low-grade/partial obstruction or ileus.
[2017-12-19] MEDS ORDERED: PIPERACILLIN/TAZOBACTAM 4.5 GM VIAL IV ONE (06:09)
[2017-12-19] MEDS ORDERED: LIDOCAINE 1% INJ-PF (10 MG/ML) 30 ML SDV NEB ONE (06:10)
[2017-12-19] MEDS ORDERED: PIPERACILLIN SODIUM/TAZOBACTAM 4.5 GM in NORMAL SALINE 100 ML IV ONE (10:00)
[2017-12-19 12:04] LABS: APPEARANCE,URINE CLOUDY; BILIRUBIN,URINE NEGATIVE (NEGATIVE); CALCIUM OXALATE CRYSTALS,URINE MODERATE /HPF; COLOR,URINE YELLOW; GLUCOSE, URINE NEGATIVE (NEGATIVE); KETONES,URINE NEGATIVE (NEGATIVE); LEUKOCYTE ESTERASE,URINE SMALL (NEGATIVE); NITRITE,URINE NEGATIVE (NEGATIVE); PROTEIN,URINE NEGATIVE (NEGATIVE)
[2017-12-19] MEDS: NORMAL SALINE 1000 ML 1,000 ML IV PRN (15:52)
--- NOTE | 2017-12-19 21:44 | PDOC H&P ---
History of Present Illness Admission Date/PCP: 12/19/17 06:27 MARGARITA RAMIREZ NP Patient complains of: abdominal pains History of Present Illness: BRIDGETTE BOONE is a 67 year old female who had exploratory laparotomy with lysis of adhesions 12/09/[address] Ornelas. She was doing well after discharge when she took laxative after a BM with hard stools about 2 days ago. This was followed by severe abdominal pains with nausea and went to ED last night. Ct scan of abd/pelvis revealed early obstruction/ileus. An NGT was placed in the ED and felt better. She also had a BM after the CT scan. Her WBC slightly elevated and the incision has clear drainage.Knowing that the patient has a mesh placed for incisional hernia after Leigh Fundoplication and the drainage, she was immediately placed on IV antibiotics. Past Medical History Cardiac Medical History: Reports: Atrial Fibrillation Denies: Coronary Artery Disease, Myocardial Infarction, Hypertension Pulmonary Medical History: Denies: Asthma, Bronchitis, Chronic Obstructive Pulmonary Disease (COPD), Pneumonia Neurological Medical History: Denies: Seizures GI Medical History: Reports: Gastroesophageal Reflux Disease, Hiatal Hernia - hx of repair, takes nexium Denies: Hepatitis Musculoskeltal Medical History: Reports: Arthritis - mobic prn Hematology: Denies: Anemia, Sickle Cell Disease Past Surgical History Past Surgical History: Reports: Cholecystectomy, Orthopedic Surgery - left knee replacement, Other - open Leigh fundoplication Ex Lap for SBO Denies: Amputation, Mastectomy, Pacemaker Social History Lives with: Family Smoking Status: Never Smoker Frequency of Alcohol Use: None Hx Recreational Drug Use: No Drugs: None Hx Prescription Drug Abuse: No - Advance Directive Resuscitation Status: Full Code Family History Family History: Reviewed & Not Pertinent Parental Family History Reviewed: No Children Family History Reviewed: No Sibling(s) Family History Reviewed.: No Medication/Allergy Home Medications: Acetaminophen [Tylenol 325 mg Tablet] 325 mg PO Q6HP PRN 12/19/17 Cetirizine HCl [Zyrtec 10 mg Tablet] 10 mg PO DAILY 12/19/17 Cyanocobalamin (Vitamin B-12) [Vitamin B-12 1000 mcg Tablet] 1,000 mcg PO DAILY 12/19/17 Diltiazem HCl [Cartia Xt] 180 mg PO QPM 12/19/17 Ergocalciferol (Vitamin D2) [Vitamin D2] 4,000 unit PO DAILY 12/19/17 Esomeprazole Magnesium [Nexium] 40 mg PO QPM 12/19/17 Fluticasone Propionate [Flonase Nasal [place] 50 Mcg/[place]ard 16 gm] 2 spray NASL DAILY 12/19/17 Hydrochlorothiazide [Hydrodiuril 12.5 mg Capsule] 12.5 mg PO DAILY 12/19/17 Hypromellose [Genteal] 1 applic OU QPM 12/19/17 Ketotifen Fumarate [Refresh] 1 drop OU DAILY 12/19/17 Meloxicam [Mobic] 7.5 mg PO QPM 12/19/17 [place]-3 Fatty Acids/Fish Oil [[place] 3 Fish Oil Softgel] 2 cap PO DAILY 12/19/17 Rizatriptan Benzoate [Maxalt] 10 mg PO ASDIR PRN 12/19/17 Tolterodine Tartrate [Detrol] 2 mg PO BID 12/19/17 Allergies/Adverse Reactions: doxycycline [Doxycycline] Allergy (Severe, Verified 12/09/17 06:39) Review of Systems Constitutional: PRESENT: other - no chills/fever Eyes: PRESENT: other - no visual/hearing problems Cardiovascular: PRESENT: other - no chest pains Respiratory: PRESENT: other - no cough Integumentary: PRESENT: other - no rash Neurological: PRESENT: other - no seizures Endocrine: PRESENT: other - no polyuria Hematologic/Lymphatic: PRESENT: other - no easy bruisability Physical Exam Vital Signs: Temp Pulse Resp BP Pulse Ox 97.5 F 63 18 121/53 L 100 12/19/17 20:00 12/19/17 20:00 12/19/17 20:00 12/19/17 20:00 12/19/17 20:00 General appearance: PRESENT: mild distress Head exam: PRESENT: atraumatic, normocephalic Eye exam: PRESENT: conjunctiva pink Mouth exam: PRESENT: moist Neck exam: PRESENT: full ROM Respiratory exam: PRESENT: clear to auscultation gilmar Cardiovascular exam: PRESENT: RRR Pulses: PRESENT: normal radial pulses Vascular exam: PRESENT: normal capillary refill GI/Abdominal exam: PRESENT: soft, tenderness - mild diffuse tenderness Rectal exam: PRESENT: deferred Neurological exam: PRESENT: alert, oriented to person, oriented to place, oriented to time, oriented to situation Psychiatric exam: PRESENT: appropriate affect Skin exam: PRESENT: normal color, warm Results Laboratory Results: 12/19/17 07:30 Urine Color YELLOW Urine Appearance CLOUDY Urine pH 5.0 Ur Specific [place] 1.020 Urine Protein NEGATIVE Urine Glucose (UA) NEGATIVE Urine Ketones NEGATIVE Urine Blood SMALL H Urine Nitrite NEGATIVE Ur Leukocyte Esterase SMALL H Urine WBC (Auto) 9 Urine RBC (Auto) 13 Impressions: Abdomen/Pelvis CT 12/19/17 00:00 IMPRESSION: Moderate dilated small bowel with air-fluid levels suggest low-grade/partial obstruction or ileus. Acute Abdomen Series 12/19/17 01:44 IMPRESSION: Moderate small bowel obstruction and/or ileus pattern consistent with prior exam. Assessment & Plan - Diagnosis (1) Abdominal pain Qualifiers: Abdominal location: generalized Qualified Code(s): R10.84 - Generalized abdominal pain Is this a current diagnosis for this admission?: Yes (2) Ileus Is this a current diagnosis for this admission?: Yes (3) Cellulitis of abdominal wall Is this a current diagnosis for this admission?: Yes - Time Time Spent: 30 to 50 Minutes - Inpatient Certification Medical Necessity: Need For IV Fluids, Need for Pain Control, Need for IV Antibiotics - Plan Summary Plan Summary: NPO and NGT Hydrate IV antibiotics
[2017-12-19] MEDS: PIPERACILLIN SODIUM/TAZOBACTAM 3.375 GM in NORMAL SALINE 100 ML IV SCH (22:13)
[2017-12-20] MEDS: PIPERACILLIN SODIUM/TAZOBACTAM 3.375 GM in NORMAL SALINE 100 ML IV SCH ×4 (02:53→22:21)
[2017-12-20] MEDS: NORMAL SALINE 1000 ML 1,000 ML IV PRN (02:54)
--- NOTE | 2017-12-20 18:35 | PDOC PROGRESS REPORT ---
Subjective Progress Note for:: 12/20/17 Subjective:: Incisional pains Had small amount of flatus. NGT drained about 900 ccs last night. Will D/C NGT with more passage of flatus Reason For Visit: ABDOMINAL PAIN Physical Exam Vital Signs: Temp Pulse Resp BP Pulse Ox 98.2 F 57 L 17 129/68 H 99 12/20/17 16:03 12/20/17 16:03 12/20/17 16:03 12/20/17 16:03 12/20/17 16:03 Intake & Output 12/19/17 12/20/17 12/21/17 06:59 06:59 06:59 Output Total 950 Balance -950 Exam: abdomen soft. Dressing soaked in serosanguinous fluid.Appears to be coming fro just below umbilicus Results Impressions: Abdomen/Pelvis CT 12/19/17 00:00 IMPRESSION: Moderate dilated small bowel with air-fluid levels suggest low-grade/partial obstruction or ileus. Acute Abdomen Series 12/19/17 01:44 IMPRESSION: Moderate small bowel obstruction and/or ileus pattern consistent with prior exam. Assessment & Plan - Diagnosis (1) Abdominal pain Qualifiers: Abdominal location: generalized Qualified Code(s): R10.84 - Generalized abdominal pain Is this a current diagnosis for this admission?: Yes (2) Ileus Is this a current diagnosis for this admission?: Yes (3) Cellulitis of abdominal wall Is this a current diagnosis for this admission?: Yes - Time Time Spent with patient: 25-34 minutes - Plan Summary Plan Summary: Most lesia inferior to umbilicus removed with easy separation of skin and subcu layer just below umbilicus to about7 cm below. Fascia not exposed but draining clear fluid just below umbilicus. A wound VAC was then placed to hopefully seal the leak and allow healing of incicion.
[2017-12-21] MEDS: PIPERACILLIN SODIUM/TAZOBACTAM 3.375 GM in NORMAL SALINE 100 ML IV SCH ×4 (03:58→21:38)
[2017-12-21] MEDS: NORMAL SALINE 1000 ML 1,000 ML IV PRN (09:18)
--- NOTE | 2017-12-21 13:12 | PDOC PROGRESS REPORT ---
Subjective Progress Note for:: 12/21/17 Subjective:: Feels much better. No bowel movements yet. Reason For Visit: ABDOMINAL PAIN Physical Exam Vital Signs: Temp Pulse Resp BP Pulse Ox 98.2 F 53 L 18 148/59 H 98 12/21/17 08:00 12/21/17 08:00 12/21/17 08:00 12/21/17 08:00 12/21/17 08:00 Intake & Output 12/20/17 12/21/17 12/22/17 06:59 06:59 06:59 Output Total 2500 Balance -2500 Weight 103.5 kg General appearance: PRESENT: no acute distress, cooperative Respiratory exam: PRESENT: clear to auscultation gilmar Cardiovascular exam: PRESENT: RRR GI/Abdominal exam: PRESENT: other - Soft, difficult to tell whether she is distended but certainly not severely distended, minimal tenderness. Wound VAC in place. No surrounding erythema. NG output is nonbilious. Results Impressions: Abdomen/Pelvis CT 12/19/17 00:00 IMPRESSION: Moderate dilated small bowel with air-fluid levels suggest low-grade/partial obstruction or ileus. Acute Abdomen Series 12/19/17 01:44 IMPRESSION: Moderate small bowel obstruction and/or ileus pattern consistent with prior exam. Assessment & Plan - Diagnosis (1) Partial small bowel obstruction Is this a current diagnosis for this admission?: Yes Plan: NG output is nonbilious. Abdomen is very soft. Will check abdominal x-rays. Patient would a superficial wound dehiscence not involving fascia. Currently being managed with wound VAC.
--- NOTE | 2017-12-21 14:48 | RADIOLOGY REPORT (SQ) ---
EXAM DESCRIPTION: ABDOMEN 2 VIEWS COMPLETED DATE/TIME: 12/21/2017 2:16 pm REASON FOR STUDY: Small bowel obstruction COMPARISON: 12/19/2017 NUMBER OF VIEWS: Two views. TECHNIQUE: Supine and erect/decubitus radiographic images of the abdomen acquired. LIMITATIONS: None. FINDINGS: FREE AIR: No free air identified. LUNG BASES: Clear. BOWEL GAS PATTERN: Decreased small bowel and gastric distention. Passage of oral contrast into the c olon. CALCIFICATIONS: No suspicious calcifications. SOFT TISSUES: No gross mass or suggestion of organomegaly. HARDWARE: Nasogastric tube extends into the antrum of the stomach. Postsurgical changes. BONES: No acute fracture. No worrisome bone lesions. OTHER: No other significant finding. IMPRESSION: Decreased small bowel distention. Passage of oral contrast into the colon. TECHNICAL DOCUMENTATION: JOB ID: [id number] [email or web address]- All Rights Reserved Reading location - IP/workstation name: [email or web address]
[2017-12-22] MEDS: NORMAL SALINE 1000 ML 1,000 ML IV PRN ×2 (00:47→15:03)
[2017-12-22] MEDS: PIPERACILLIN SODIUM/TAZOBACTAM 3.375 GM in NORMAL SALINE 100 ML IV SCH ×4 (03:05→22:26)
[2017-12-22] MEDS ORDERED: DILTIAZEM HCL 180 MG CAPSULE.CR PO ONE (12:00)
--- NOTE | 2017-12-22 20:06 | PDOC PROGRESS REPORT ---
Subjective Progress Note for:: 12/22/17 Subjective:: Passing flatus and had BM Reason For Visit: SBO Physical Exam Vital Signs: Temp Pulse Resp BP Pulse Ox 97.9 F 58 L 18 133/55 H 98 12/22/17 16:00 12/22/17 16:00 12/22/17 16:00 12/22/17 16:00 12/22/17 16:00 Intake & Output 12/21/17 12/22/17 12/23/17 06:59 06:59 06:59 Intake Total 240 846 Output Total 2500 300 Balance -2500 -60 846 Weight 103.5 kg 104.1 kg Exam: abd is soft nontender Results Impressions: Abdomen/Pelvis CT 12/19/17 00:00 IMPRESSION: Moderate dilated small bowel with air-fluid levels suggest low-grade/partial obstruction or ileus. Acute Abdomen Series 12/19/17 01:44 IMPRESSION: Moderate small bowel obstruction and/or ileus pattern consistent with prior exam. Abdomen X-Ray 12/21/17 00:00 IMPRESSION: Decreased small bowel distention. Passage of oral contrast into the colon. Assessment & Plan - Diagnosis (1) Abdominal pain Qualifiers: Abdominal location: generalized Qualified Code(s): R10.84 - Generalized abdominal pain Is this a current diagnosis for this admission?: Yes (2) Ileus Is this a current diagnosis for this admission?: Yes (3) Cellulitis of abdominal wall Is this a current diagnosis for this admission?: Yes - Time Time Spent with patient: 15-24 minutes - Inpatient Certification Medical Necessity: Need For IV Fluids, Need for IV Antibiotics - Plan Summary Plan Summary: Start liquids po Continue IV antibiotics and wound vac
[2017-12-23] MEDS: PIPERACILLIN SODIUM/TAZOBACTAM 3.375 GM in NORMAL SALINE 100 ML IV SCH ×4 (03:43→20:24)
[2017-12-23] MEDS: NORMAL SALINE 1000 ML 1,000 ML IV PRN (03:46)
[2017-12-23] MEDS: DILTIAZEM HCL 180 MG CAPSULE.CR PO SCH (10:53)
--- NOTE | 2017-12-23 21:46 | PDOC PROGRESS REPORT ---
Subjective Progress Note for:: 12/23/17 Subjective:: no pains. + BM. Tolerating clears Reason For Visit: SBO Physical Exam Vital Signs: Temp Pulse Resp BP Pulse Ox 97.8 F 50 L 16 138/57 H 100 12/23/17 15:44 12/23/17 15:44 12/23/17 15:44 12/23/17 15:44 12/23/17 15:44 Intake & Output 12/22/17 12/23/17 12/24/17 06:59 06:59 06:59 Intake Total 240 1995 62 Output Total 300 Balance -60 1995 Weight 104.1 kg Exam: Abd soft and nontender. Vac in place Results Impressions: Abdomen/Pelvis CT 12/19/17 00:00 IMPRESSION: Moderate dilated small bowel with air-fluid levels suggest low-grade/partial obstruction or ileus. Acute Abdomen Series 12/19/17 01:44 IMPRESSION: Moderate small bowel obstruction and/or ileus pattern consistent with prior exam. Abdomen X-Ray 12/21/17 00:00 IMPRESSION: Decreased small bowel distention. Passage of oral contrast into the colon. Assessment & Plan - Diagnosis (1) Abdominal pain Qualifiers: Abdominal location: generalized Qualified Code(s): R10.84 - Generalized abdominal pain Is this a current diagnosis for this admission?: Yes (2) Ileus Is this a current diagnosis for this admission?: Yes (3) Cellulitis of abdominal wall Is this a current diagnosis for this admission?: Yes - Time Time Spent with patient: 15-24 minutes - Plan Summary Plan Summary: Increase to full liquid diet Possible change VAC dressing tomorrow
[2017-12-24] MEDS: PIPERACILLIN SODIUM/TAZOBACTAM 3.375 GM in NORMAL SALINE 100 ML IV SCH ×4 (03:32→21:09)
[2017-12-24] MEDS: DILTIAZEM HCL 180 MG CAPSULE.CR PO SCH (09:21)
--- NOTE | 2017-12-24 21:02 | PDOC PROGRESS REPORT ---
Subjective Progress Note for:: 12/24/17 Subjective:: no pains.Tolerating diet Reason For Visit: SBO Physical Exam Vital Signs: Temp Pulse Resp BP Pulse Ox 97.9 F 58 L 18 120/58 L 100 12/24/17 16:58 12/24/17 16:58 12/24/17 16:58 12/24/17 16:58 12/24/17 16:58 Intake & Output 12/23/17 12/24/17 12/25/17 06:59 06:59 06:59 Intake Total 1995 822 240 Balance 1995 822 240 Exam: Abd soft and nontender. Vac in place. Results Impressions: Abdomen/Pelvis CT 12/19/17 00:00 IMPRESSION: Moderate dilated small bowel with air-fluid levels suggest low-grade/partial obstruction or ileus. Acute Abdomen Series 12/19/17 01:44 IMPRESSION: Moderate small bowel obstruction and/or ileus pattern consistent with prior exam. Abdomen X-Ray 12/21/17 00:00 IMPRESSION: Decreased small bowel distention. Passage of oral contrast into the colon. Assessment & Plan - Diagnosis (1) Abdominal pain Qualifiers: Abdominal location: generalized Qualified Code(s): R10.84 - Generalized abdominal pain Is this a current diagnosis for this admission?: Yes (2) Ileus Is this a current diagnosis for this admission?: Yes (3) Cellulitis of abdominal wall Is this a current diagnosis for this admission?: Yes - Time Time Spent with patient: 15-24 minutes - Plan Summary Plan Summary: Possible discharge tomorrow . Arrange for VAC at home.
[2017-12-25] MEDS: PIPERACILLIN SODIUM/TAZOBACTAM 3.375 GM in NORMAL SALINE 100 ML IV SCH ×3 (02:38→14:42)
[2017-12-25 08:05] LABS: ABSOLUTE BASOPHILS # (AUTO) 0.1 10^3/uL (0.0-0.2); ABSOLUTE EOSINOPHILS # (AUTO) 0.4 10^3/uL (0.0-0.6); ABSOLUTE LYMPHOCYTES (AUTO) 2.1 10^3/uL (0.5-4.7); ABSOLUTE MONOCYTES (AUTO) 0.4 10^3/uL (0.1-1.4); ABSOLUTE NEUT (AUTO) 2.6 10^3/uL (1.7-8.2); BASOPHILS % (AUTO) 1.8 % (0-2); EOSINOPHILS % (AUTO) 7.6 % (0-6); HEMATOCRIT 35.6 % (36.0-47.0); HEMOGLOBIN 11.8 g/dL (12.0-15.5); LYMPHOCYTES % (AUTO) 37.2 % (13-45); MEAN CORPUSCULAR HEMOGLOBIN 30.7 pg (27.0-33.4); MEAN CORPUSCULAR HGB CONC 33.1 g/dL (32.0-36.0); MEAN CORPUSCULAR VOLUME 93 fl (80-97); MONOCYTES % (AUTO) 6.6 % (3-13); PLATELET COUNT 249 10^3/uL (150-450); RED BLOOD COUNT 3.84 10^6/uL (3.72-5.28); RED CELL DISTRIBUTION WIDTH 13.5 % (11.5-14.0); SEGMENTED NEUTROPHILS % (AUTO) 46.8 % (42-78); TOTAL CELLS COUNTED % (AUTO) 100 %; WHITE BLOOD COUNT 5.5 10^3/uL (4.0-10.5)
[2017-12-25] MEDS: DILTIAZEM HCL 180 MG CAPSULE.CR PO SCH (09:30)
--- NOTE | 2017-12-25 13:38 | DISCHARGE SUMMARY E ---
Discharge Summary NAME: BRIDGETTE BOONE : 1950 AGE: 67Y ADMITTED: 12/19/2017 DISCHARGED: REASON FOR ADMISSION: Abdominal pain. HISTORY OF PRESENTING ILLNESS: The patient is a 67-year-old white female who was recently hospitalized at [facility], cared for by the Surgical Service, taken to the operating room for small bowel lysis of adhesions by Dr. Ornelas on 12/09/2017. She initially did well, was seen in the [facility] where she had hematoma drained 1 week postoperatively. The patient did well initially then developed abdominal pain and nausea. She was seen in the emergency department where she underwent CT imaging which suggested possible small bowel obstruction. She was readmitted to the Surgical Service for same. SUMMARY OF HOSPITALIZATION: The patient was admitted to Surgical Service, kept on IV fluids, and intravenous antibiotics. She had the anterior aspect of the wound opened, remainder of lesia removed and a wound VAC placed. No cultures obtained. Clinically she improved, was started on clear liquids, diet advanced and she tolerated this well. By the sixth hospital day, she was felt to have received maximum benefits from hospitalization and was discharged home. FINAL DIAGNOSES: 1. Postoperative ileus. 2. Superficial surgical site infection status post partial skin and subcuticular dehiscence with a wound VAC application. 3. Status post exploratory laparotomy, lysis of adhesions 3 weeks ago. DISPOSITION: Patient will be discharged home to her family. Followup with the Surgical Clinic in approximately 1 week; she will not be on any further antibiotics; she will continue home health associated wound VAC care, with sponge being changes eery 3 days. She will resume her preoperative medications, diet and activity. Will fit her with an abdominal binder. DICTATING PHYSICIAN: MAGDIEL ZUNIGA M.D. [id number] PHY#: [id number] ID: [id number] JOB#: [id number] ACCT: [id number] cc:MAGDIEL ZUNIGA M.D. CRYSTAL LYLE >
[2017-12-25 15:11] VITALS: BP 137/53
== END 2017-12-25 16:30 | disposition home health service (06) | DRG 920 ==
LOC: ER 01:15 → EH 06:27 → 2S 13:51
PROVIDERS: ADMIT Surgery; ATTEND Surgery
PROC: 0D9670Z Drainage of Stomach with Drainage Device, Via Natural or Artificial Opening (ICD-10-PCS; principal; 2017-12-19)
DX: T81.31XA Disruption of external operation (surgical) wound, not elsewhere classified, initial encounter (principal); K91.31 Postprocedural partial intestinal obstruction; T81.4XXA Infection following a procedure, initial encounter; L03.311 Cellulitis of abdominal wall; I48.91 Unspecified atrial fibrillation; K21.9 Gastro-esophageal reflux disease without esophagitis; M19.90 Unspecified osteoarthritis, unspecified site; Z96.652 Presence of left artificial knee joint; E11.9 Type 2 diabetes mellitus without complications; Y83.8 Other surgical procedures as the cause of abnormal reaction of the patient, or of later complication, without mention of misadventure at the time of the procedure; Z90.49 Acquired absence of other specified parts of digestive tract; Z88.1 Allergy status to other antibiotic agents
CPT/HCPCS: 36415; 74019; 74022; 74177; 80053; 81001; 83690; 85025; 96374; 96375; 99285; J1170; J2543; J2765; J3490; J7030

== ENCOUNTER 2017-12-29 00:12 | Inpatient (IN) | payer BC, MEDICARE ==
[2017-12-29] MEDS ORDERED: NORMAL SALINE 1000 ML 1,000 ML IV ONE ×2 (01:35→01:59)
[2017-12-29] MEDS ORDERED: HYDROMORPHONE HCL INJ/PF 2 MG/ML AMPULE IV ONE ×2 (01:59→05:15)
--- NOTE | 2017-12-29 02:05 | RADIOLOGY REPORT (SQ) ---
EXAM DESCRIPTION: KUB/ABDOMEN (SINGLE VIEW) CLINICAL HISTORY: N/V, worsening abd pain, same pain as SBO COMPARISON: 12/21/2017 FINDINGS: Single view of the abdomen. Dilated loops of small bowel in the mid abdomen. Moderate amount of stool. Hernia repair. Degenerative change of the spine. No definite organomegaly. Lung bases clear. IMPRESSION: 1. Dilated loops of small bowel. This could be seen with small bowel obstruction or ileus.
[2017-12-29 02:31] LABS: APPEARANCE,URINE CLOUDY; BILIRUBIN,URINE NEGATIVE (NEGATIVE); CALCIUM OXALATE CRYSTALS,URINE RARE /HPF; COLOR,URINE YELLOW; GLUCOSE, URINE 50 mg/dL (NEGATIVE); KETONES,URINE NEGATIVE (NEGATIVE); LEUKOCYTE ESTERASE,URINE NEGATIVE (NEGATIVE); NITRITE,URINE NEGATIVE (NEGATIVE); PROTEIN,URINE >=500 mg/dL (NEGATIVE); URINE SPECIFIC GRAVITY 1.023; UROBILINOGEN,URINE NEGATIVE mg/dL (<2.0)
[2017-12-29 02:34] LABS: ABSOLUTE BASOPHILS # (AUTO) 0.1 10^3/uL (0.0-0.2); ABSOLUTE EOSINOPHILS # (AUTO) 0.2 10^3/uL (0.0-0.6); ABSOLUTE LYMPHOCYTES (AUTO) 1.7 10^3/uL (0.5-4.7); ABSOLUTE MONOCYTES (AUTO) 0.6 10^3/uL (0.1-1.4); BASOPHILS % (AUTO) 0.7 % (0-2); EOSINOPHILS % (AUTO) 1.4 % (0-6); HEMATOCRIT 45.6 % (36.0-47.0); HEMOGLOBIN 15.2 g/dL (12.0-15.5); LYMPHOCYTES % (AUTO) 14.6 % (13-45); MEAN CORPUSCULAR HEMOGLOBIN 31.1 pg (27.0-33.4); MEAN CORPUSCULAR HGB CONC 33.4 g/dL (32.0-36.0); MEAN CORPUSCULAR VOLUME 93 fl (80-97); MONOCYTES % (AUTO) 5.2 % (3-13); PLATELET COUNT 268 10^3/uL (150-450); RED BLOOD COUNT 4.89 10^6/uL (3.72-5.28); RED CELL DISTRIBUTION WIDTH 13.6 % (11.5-14.0); SEGMENTED NEUTROPHILS % (AUTO) 78.1 % (42-78); TOTAL CELLS COUNTED % (AUTO) 100 %; WHITE BLOOD COUNT 11.6 10^3/uL (4.0-10.5)
[2017-12-29 02:47] LABS: ALANINE AMINOTRANSFERASE 37 U/L (9-52); ALKALINE PHOSPHATASE 76 U/L (38-126); ANION GAP 10 (5-19); ASPARTATE AMINO TRANSFERASE 14 U/L (14-36); BILIRUBIN,DIRECT 0.5 mg/dL (0.0-0.4); BILIRUBIN,TOTAL 0.5 mg/dL (0.2-1.3); BLOOD UREA NITROGEN 17 mg/dL (7-20); CALCIUM 10.2 mg/dL (8.4-10.2); CARBON DIOXIDE 26 mmol/L (22-30); CHLORIDE 104 mmol/L (98-107); GLUCOSE 130 mg/dL (75-110); LIPASE 33.6 U/L (23-300); POTASSIUM 4.3 mmol/L (3.6-5.0); SODIUM 140.4 mmol/L (137-145); TOTAL PROTEIN 6.7 g/dL (6.3-8.2)
--- NOTE | 2017-12-29 02:54 | ER Document Report ---
ED GI/ - General Chief Complaint: Abdominal Pain Stated Complaint: LOWER ABDOMINAL PAIN Time Seen by Provider: 12/29/17 01:31 Notes: The patient is a 67 year old female who had exploratory laparotomy with lysis of adhesions 12/09/[address] Ornelas, Leigh fundiplication, presents with worsening abdominal pain, nausea, vomiting and decreased amount of stool earlier today. She said her symptoms feel similar to her prior small bowel obstructions. She has a wound VAC that was changed four days ago by home nursing, but tonight she noticed leakage from the wound VAC. Patient denies fevers, dysuria, hematemesis, flank pain, headaches, chest pain or shortness of breath. TRAVEL OUTSIDE OF THE [place] IN LAST 30 DAYS: No - Related Data Allergies/Adverse Reactions: doxycycline [Doxycycline] Allergy (Severe, Verified 12/09/17 06:39) Past Medical History - General Information source: Patient - Social History Smoking Status: Unknown if Ever Smoked Family History: Reviewed & Not Pertinent - Past Medical History Cardiac Medical History: Reports: Hx Atrial Fibrillation Denies: Hx Coronary Artery Disease, Hx Heart Attack, Hx Hypertension Pulmonary Medical History: Denies: Hx Asthma, Hx Bronchitis, Hx COPD, Hx Pneumonia Neurological Medical History: Denies: Hx Cerebrovascular Accident, Hx Seizures Renal/ Medical History: Denies: Hx Peritoneal Dialysis GI Medical History: Reports: Hx Gastroesophageal Reflux Disease, Hx Hiatal Hernia - hx of repair, takes nexium. Denies: Hx Hepatitis, Hx Ulcer Musculoskeltal Medical History: Reports Hx Arthritis - mobic prn Infectious Medical History: Denies: Hx Hepatitis Past Surgical History: Reports: Hx Cholecystectomy, Hx Orthopedic Surgery - left knee replacement, Other - open Leigh fundoplication Ex Lap for SBO. Denies: Hx Mastectomy, Hx Open Heart Surgery, Hx Pacemaker - Immunizations Hx Diphtheria, Pertussis, Tetanus Vaccination: Yes Hx Pneumococcal Vaccination: 10/23/12 Review of Systems - Review of Systems Notes: REVIEW OF SYSTEMS: CONSTITUTIONAL: -fevers, -chills EENT: -eye pain, -difficulty swallowing, -nasal congestion CARDIOVASCULAR: -chest pain, -syncope. RESPIRATORY: -cough, -SOB GASTROINTESTINAL: +abdominal pain, +nausea, +vomiting, -diarrhea GENITOURINARY: -dysuria, -hematuria MUSCULOSKELETAL: -back pain, -neck pain SKIN: -rash or skin lesions. HEMATOLOGIC: -easy bruising or bleeding. LYMPHATIC: -swollen, enlarged glands. NEUROLOGICAL: -altered mental status or loss of consciousness, -headache, - neurologic symptoms PSYCHIATRIC: -anxiety, -depression. ALL OTHER SYSTEMS REVIEWED AND NEGATIVE. Physical Exam - Vital signs Vitals: Temp Pulse Resp BP Pulse Ox 98.5 F 109 H 18 129/77 H 97 12/29/17 00:23 12/29/17 00:23 12/29/17 00:23 12/29/17 00:23 12/29/17 00:23 - Notes Notes: PHYSICAL EXAMINATION: GENERAL: Well-appearing, well-nourished and in no acute distress. HEAD: Atraumatic, normocephalic. EYES: Pupils equal round and reactive to light, extraocular movements intact, sclera anicteric, conjunctiva are normal. ENT: nares patent, oropharynx clear without exudates. Moist mucous membranes. NECK: Normal range of motion, supple without lymphadenopathy LUNGS: Breath sounds clear to auscultation bilaterally and equal. No wheezes rales or rhonchi. HEART: Regular rate and rhythm without murmurs ABDOMEN: Wound vac in place over lower abdomen with a small amount of yellow drainage, no surrounding erythema or tenderness. Normal bowel sounds. Tenderness over lower abdomen. EXTREMITIES: Normal range of motion, no pitting or edema. No cyanosis. NEUROLOGICAL: Cranial nerves grossly intact. Normal speech, normal gait. Normal sensory and motor exams. PSYCH: Normal mood, normal affect. SKIN: Warm, Dry, normal turgor, no rashes or lesions noted. Course - Re-evaluation Re-evalutation: Patient with multiple small bowel obstructions from adhesions and possible ileus. Her nausea started earlier today with worsening abdominal pain and only a small amount of stool. Patient does have bowel sounds on exam does not appear distended. She does have some leakage out of her wound vac and some increased tenderness around the area without any erythema. 12/29/17 03:[address] Hawkins about concern for ileus vs. SBO due to similar symptoms during her last admissions. Recommend CT abdomen pelvis with oral contrast. 12/29/17 05:55 Pt began to pass some gas. CT A/P still pending due to oral contrast ingestion. Will sign-out to Dr. Hogan for CT results and surgical consultation recommendations. Pt's pain under control and she feels better. - Vital Signs Vital signs: Temp Pulse Resp BP Pulse Ox 98.5 F 109 H 18 149/77 H 95 12/29/17 00:23 12/29/17 00:23 12/29/17 05:01 12/29/17 05:01 12/29/17 05:01 - Laboratory Result Diagrams: 12/29/17 02:15 12/29/17 02:15 Laboratory results interpreted by me: 12/29/17 12/29/17 12/29/17 02:03 02:15 02:15 WBC 11.6 H Seg Neutrophils % 78.1 H Absolute Neutrophils 9.0 H Glucose 130 H Direct Bilirubin 0.5 H Urine Protein >=500 H Urine Glucose (UA) 50 H Discharge - Discharge Clinical Impression: Abdominal pain Qualifiers: Abdominal location: unspecified location Qualified Code(s): R10.9 - Unspecified abdominal pain Condition: Stable Additional Instructions: ABDOMINAL PAIN: There are many causes of abdominal pain. Pain can mean a serious problem requiring surgery (such as appendicitis). It can also be an innocent problem that goes away on its own (such as a viral infection). Often, time must pass to determine the cause of pain. The physician does not feel that hospitalization is necessary, at present. Things may change within the next 24 hours. Call the doctor or come back for re- examination if any problems occur, such as: (1) Pain that becomes more severe, steady, or becomes concentrated in one specific area. Also, pain that is more severe with movement or coughing. (2) Vomiting that persists or becomes more frequent. (3) Blood in the vomitus, urine, or bowel movements. Blood in the stool may have a tarry or black appearance. (4) Shaking chills or fever greater than 100 degrees F. (5) The abdomen becomes more distended or swollen. (6) Bowel movements cease. (7) Failure to improve as expected. NORMAL EXAM AND WORKUP: At this time, your examination and workup show no significant abnormality. No significant abnormal physical findings are noted. All laboratory, EKG, and imaging (x-ray, CT scans, ultrasound) studies that were ordered show no significant abnormality. Although your examination and all studies that were ordered showed no significant abnormal finding, there are no examinations and no studies that are 100% accurate. There is always the possibility that some abnormality could exist and not be detected with physical examination or within the limits and capabilities of laboratory and other studies. You should return or follow up as you were instructed on your visit today for further evaluation if your symptoms do not resolve. PAIN MEDICATION INJECTION: You have received an injection of a pain medication. You should experience significant pain relief within 45 minutes. This drug is a narcotic - - it will impair your judgement, slow your reaction time and make you sleepy ( as well as relieve your pain). Narcotics also can cause nausea. You should not drive, work with machinery, or perform any task requiring mental alertness until all effects of the medication are gone -- six to eight hours. Do not take any alcohol, or sedatives, and do not take any other medication without checking with your physician. FOLLOW-UP CARE: If you have been referred to a physician for follow-up care, call the physician s office for an appointment as you were instructed or within the next two days. If you experience worsening or a significant change in your symptoms, notify the physician immediately or return to the Emergency Department at any time for re-evaluation. Forms: Elevated Blood Pressure Referrals: MARGARITA RAMIREZ NP [Primary Care Provider] - Follow up as needed ROSALIO HAWKINS MD [ACTIVE STAFF] - Follow up as needed
--- NOTE | 2017-12-29 06:32 | RADIOLOGY REPORT (SQ) ---
EXAM DESCRIPTION: CT ABDOMEN AND PELVIS WITH CONTRAST CLINICAL HISTORY: possible SBO vs. ileus COMPARISON: None Available. TECHNIQUE: CT of the abdomen and pelvis are performed during IV bolus administration of 100 mL of Isovue-370. DLP: 2208.57 mGycm FINDINGS: Abdomen: The liver has normal size and density. No intrahepatic mass or biliary dilatation. Cholecystectomy. The spleen, pancreas, and adrenal glands are unremarkable. Punctate bilateral nonobstructing renal calculi. Parapelvic left renal cysts are unchanged.. Bosniak class I aortoiliac atherosclerosis. IVC is unremarkable. The portal vein is patent. The proximal visceral and renal arteries are patent. No free intraperitoneal air. Large hiatal hernia is stable. Pelvis: Prior hernia repair. Urinary bladder is unremarkable. Small amount of free fluid. Dilated loops of small bowel with transition point in the right lower abdomen best seen on image #31, series #601. Edema within the mesentery. Scattered diverticula of the colon without pericolic fat stranding. No definite appendicitis. The visualized lung bases demonstrate minimal bibasilar dependent atelectasis or scar. No destructive bone lesions identified. Degenerative change of the spine. IMPRESSION: 1. Findings compatible with small bowel obstruction with transition point in the right lower abdomen. 2. Diverticulosis without evidence of diverticulitis. This exam was performed according to our departmental dose-optimization program, which includes automated exposure control, adjustment of the mA and/or kV according to patient size and/or use of iterative reconstruction technique.
[2017-12-29] MEDS ORDERED: LIDOCAINE 0.5% INJ-PF (5 MG/ML) 50 ML SDV NEB ONE (07:04)
[2017-12-29] MEDS ORDERED: FENTANYL CITRATE INJ/PF 100 MCG/2 ML AMPUL IV ONE (11:06)
[2017-12-29] MEDS ORDERED: FENTANYL CITRATE INJ/PF 100 MCG/2 ML AMPUL IV PRN (12:08)
[2017-12-29] MEDS: PIPERACILLIN SODIUM/TAZOBACTAM 3.375 GM in NORMAL SALINE 100 ML IV SCH ×2 (14:39→21:02)
--- NOTE | 2017-12-29 14:51 | RADIOLOGY REPORT (SQ) ---
EXAM DESCRIPTION: NASO/OROGASTRIC TUBE PLACEMENT COMPLETED DATE/TIME: 12/29/2017 1:23 pm REASON FOR STUDY: Small bowel obstruction, abdominal pain, ng tube placement COMPARISON: CT abdomen pelvis 12/29/2017, abdominal radiographs 12/29/2017 TECHNIQUE: Live fluoroscopic guidance. RADIATION DOSE: Total fluoroscopy time: 1 fluoroscopy image saved to PACS. LIMITATIONS: None. FINDINGS: The patient was brought to the fluoroscopy room and placed in the right lateral recumbent position and supine on the fluoroscopy table. A NG-tube was advanced through the right nostril and in to the stomach. Approximately 10 mL of non ionic contrast was injected through the catheter to confi rm placement. A fluoroscopic spot film was saved to PACS demonstrating catheter tip within the stomac h. Moderate size sliding hiatal hernia is identified. IMPRESSION: Successful fluoroscopic guided NG tube placement. COMMENT: Quality ID [id number]: Final reports for procedures using fluoroscopy that document radiation exp osure indices, or exposure time and number of fluorographic images (if radiation exposure indices are not available) TECHNICAL DOCUMENTATION: JOBD ID: [id number] [employer]- All Rights Reserved Reading location - IP/workstation name: [email or web address]
--- NOTE | 2017-12-29 21:34 | PDOC H&P ---
History of Present Illness Admission Date/PCP: 12/29/17 09:28 MARGARITA RAMIREZ NP Patient complains of: abdominal pains with N/V History of Present Illness: 67 yo female had Leigh's funduplication years ago then developed a ventral hernia which was repaired with the use of a mesh. Patient developed a bowel obstruction that was explored and adhesions lyzed in then discharged 12/13/17. Patient readmitted for small bowel obstruction on 12/19/17 which resolved with NGT. Patient also noted drainage on the incision just below umbilicus then had a skin and subcu dehiscence about 6 cm at this site after removal of lesia. A wound vac was placed and discharged on 12/25/17 withe wound vac. Anew wound vac placed at home by visiting nurse. This vac started leaking last night followed by patient's abdominal pains and N/V. Ct scan of the abd/pelvis done in ED showed SBO. Patient had a BM after the CT scan and passed small amount of flatus. Past Medical History Cardiac Medical History: Reports: Atrial Fibrillation Denies: Coronary Artery Disease, Myocardial Infarction, Hypertension Pulmonary Medical History: Denies: Asthma, Bronchitis, Chronic Obstructive Pulmonary Disease (COPD), Pneumonia Neurological Medical History: Denies: Seizures GI Medical History: Reports: Gastroesophageal Reflux Disease, Hiatal Hernia - hx of repair, takes nexium Denies: Hepatitis Musculoskeltal Medical History: Reports: Arthritis - mobic prn Hematology: Denies: Anemia, Sickle Cell Disease Past Surgical History Past Surgical History: Reports: Cholecystectomy, Orthopedic Surgery - left knee replacement, Other - open Leigh fundoplication Ex Lap for SBO Denies: Amputation, Mastectomy, Pacemaker Social History Smoking Status: Unknown if Ever Smoked Frequency of Alcohol Use: None Hx Recreational Drug Use: No Drugs: None Hx Prescription Drug Abuse: No - Advance Directive Resuscitation Status: Full Code Family History Family History: Reviewed & Not Pertinent Parental Family History Reviewed: Yes Children Family History Reviewed: No Sibling(s) Family History Reviewed.: No Medication/Allergy Home Medications: Acetaminophen [Tylenol 325 mg Tablet] 325 mg PO Q6HP PRN 12/19/17 Cetirizine HCl [Zyrtec 10 mg Tablet] 10 mg PO DAILY 12/19/17 Cyanocobalamin (Vitamin B-12) [Vitamin B-12 1000 mcg Tablet] 1,000 mcg PO DAILY 12/19/17 Diltiazem HCl [Cartia Xt] 180 mg PO QPM 12/19/17 Ergocalciferol (Vitamin D2) [Vitamin D2] 4,000 unit PO DAILY 12/19/17 Esomeprazole Magnesium [Nexium] 40 mg PO QPM 12/19/17 Fluticasone Propionate [Flonase Nasal Douglas 50 Mcg/Douglas 16 gm] 2 spray NASL DAILY 12/19/17 Hydrochlorothiazide [Hydrodiuril 12.5 mg Capsule] 12.5 mg PO DAILY 12/19/17 Hypromellose [Genteal] 1 applic OU QPM 12/19/17 Ketotifen Fumarate [Refresh] 1 drop OU DAILY 12/19/17 Meloxicam [Mobic] 7.5 mg PO QPM 12/19/17 [place]-3 Fatty Acids/Fish Oil [[place] 3 Fish Oil Softgel] 2 cap PO DAILY 12/19/17 Rizatriptan Benzoate [Maxalt] 10 mg PO ASDIR PRN 12/19/17 Tolterodine Tartrate [Detrol] 2 mg PO BID 12/19/17 Allergies/Adverse Reactions: doxycycline [Doxycycline] Allergy (Severe, Verified 12/09/17 06:39) Review of Systems Constitutional: PRESENT: other - no fever/chills Eyes: PRESENT: other - no visual/hearing changes Cardiovascular: PRESENT: other - no chest pains Respiratory: PRESENT: other - no dyspnea Gastrointestinal: PRESENT: abdominal pain, nausea, vomiting Genitourinary: PRESENT: other - no dysuria Integumentary: PRESENT: other - leaking around wound vac Neurological: PRESENT: other - no seizures Endocrine: PRESENT: cold intolerance Hematologic/Lymphatic: PRESENT: other - no easy bruising Physical Exam Vital Signs: Temp Pulse Resp BP Pulse Ox 98.3 F 59 L 20 116/79 95 12/29/17 11:37 12/29/17 11:37 12/29/17 11:37 12/29/17 11:37 12/29/17 11:37 General appearance: PRESENT: mild distress Head exam: PRESENT: atraumatic, normocephalic Eye exam: PRESENT: conjunctiva pink Mouth exam: PRESENT: moist Neck exam: PRESENT: full ROM Respiratory exam: PRESENT: clear to auscultation gilmar Cardiovascular exam: PRESENT: RRR Pulses: PRESENT: normal radial pulses Vascular exam: PRESENT: normal capillary refill GI/Abdominal exam: PRESENT: soft, tenderness - mild tenderness around the incision site Rectal exam: PRESENT: deferred Extremities exam: PRESENT: full ROM Musculoskeletal exam: PRESENT: ambulatory Neurological exam: PRESENT: alert, oriented to person, oriented to place, oriented to time, oriented to situation Psychiatric exam: PRESENT: appropriate affect Skin exam: PRESENT: normal color, warm Results Impressions: Abdomen/Pelvis CT 12/29/17 00:00 IMPRESSION: 1. Findings compatible with small bowel obstruction with transition point in the right lower abdomen. 2. Diverticulosis without evidence of diverticulitis. This exam was performed according to our departmental dose-optimization program, which includes automated exposure control, adjustment of the mA and/or kV according to patient size and/or use of iterative reconstruction technique. KUB X-Ray 12/29/17 01:33 IMPRESSION: 1. Dilated loops of small bowel. This could be seen with small bowel obstruction or ileus. Assessment & Plan - Diagnosis (1) Small bowel obstruction Is this a current diagnosis for this admission?: Yes (2) Cellulitis of abdominal wall Is this a current diagnosis for this admission?: Yes (3) Ileus Is this a current diagnosis for this admission?: Yes - Time Time Spent: 30 to 50 Minutes - Inpatient Certification Medical Necessity: Need For IV Fluids, Need for IV Antibiotics - Plan Summary Plan Summary: Blood c/s,c/s of incisional drainage Leave wound vac off for now and place a colostomy appliance around the drainage site Start IV antibiotics Place NGT
[2017-12-30] MEDS: PIPERACILLIN SODIUM/TAZOBACTAM 3.375 GM in NORMAL SALINE 100 ML IV SCH ×4 (03:39→21:25)
[2017-12-30 10:38] LABS: APPEARANCE,URINE CLOUDY; BILIRUBIN,URINE NEGATIVE (NEGATIVE); COLOR,URINE YELLOW; GLUCOSE, URINE NEGATIVE (NEGATIVE); KETONES,URINE NEGATIVE (NEGATIVE); LEUKOCYTE ESTERASE,URINE LARGE (NEGATIVE); NITRITE,URINE NEGATIVE (NEGATIVE); PROTEIN,URINE NEGATIVE (NEGATIVE); URINE SPECIFIC GRAVITY 1.008; UROBILINOGEN,URINE NEGATIVE mg/dL (<2.0)
--- NOTE | 2017-12-30 12:39 | PDOC PROGRESS REPORT ---
Subjective Progress Note for:: 12/30/17 Reason For Visit: ABDOMINAL PAIN/SMALL BOWEL OBSTRUCTION Patient anxious, has lots of questions about why she has been readmitted for the second time after previous exploratory surgery. Her graft she does feel better, nasogastric tube draining copious amounts of bile-stained fluid. She is also having a lot of loose stools. Physical Exam Vital Signs: Temp Pulse Resp BP Pulse Ox 98.8 F 63 18 146/63 H 96 12/30/17 11:25 12/30/17 11:25 12/30/17 11:25 12/30/17 11:25 12/30/17 07:35 Intake & Output 12/29/17 12/30/17 12/31/17 06:59 06:59 07:59 Output Total 375 Balance -375 General appearance: PRESENT: other - No acute distress GI/Abdominal exam: PRESENT: other - Soft nontender no peritoneal signs no rigidity no guarding Infraumbilical portion of midline incision open, 5 x 8 cm , granulating, with an overlying ostomy appliance bag draining clear yellow fluid foul-smelling not strong. Results Laboratory Results: 12/30/17 09:10 12/30/17 12/30/17 09:10 10:04 Creatinine 0.76 Urine Color YELLOW Urine Appearance CLOUDY Urine pH 6.0 Ur Specific Christoval 1.008 Urine Protein NEGATIVE Urine Glucose (UA) NEGATIVE Urine Ketones NEGATIVE Urine Blood MODERATE H Urine Nitrite NEGATIVE Ur Leukocyte Esterase LARGE H Urine WBC (Auto) 19 Urine RBC (Auto) 4 Impressions: Abdomen/Pelvis CT 12/29/17 00:00 IMPRESSION: 1. Findings compatible with small bowel obstruction with transition point in the right lower abdomen. 2. Diverticulosis without evidence of diverticulitis. This exam was performed according to our departmental dose-optimization program, which includes automated exposure control, adjustment of the mA and/or kV according to patient size and/or use of iterative reconstruction technique. KUB X-Ray 12/29/17 01:33 IMPRESSION: 1. Dilated loops of small bowel. This could be seen with small bowel obstruction or ileus. Assessment & Plan - Diagnosis (1) Abdominal pain Qualifiers: Abdominal location: unspecified location Qualified Code(s): R10.9 - Unspecified abdominal pain Is this a current diagnosis for this admission?: Yes Plan: Patient is now 3 weeks status post exploratory laparotomy lysis of adhesions by Dr. Ornelas, readmitted to the hospital on 2 occasions since for partial small bowel obstruction. Clinically patient improved with n.p.o. IV fluids nasogastric decompression. I personally reviewed her CT scan of the abdomen and pelvis. I am not convinced she has a distal small bowel obstruction. The remainder the abdomen looks unremarkable other than some postoperative change. Recommendations: 1. Because of the copious amount of yellow clear [id number] drainage from her line incision, tented for urinalysis, and creatinine checked to rule out urinoma 2. Nasogastric drainage IV fluids. 3. We will manage midline wound voiding to drainage; may need to replace wound VAC
[2017-12-30 15:28] LABS: APPEARANCE,URINE CLOUDY; COLOR,URINE AMBER; GLUCOSE, URINE 150 mg/dL (NEGATIVE)
[2017-12-30 15:29] LABS: BILIRUBIN,URINE NEGATIVE (NEGATIVE); KETONES,URINE NEGATIVE (NEGATIVE); LEUKOCYTE ESTERASE,URINE NEGATIVE (NEGATIVE); NITRITE,URINE NEGATIVE (NEGATIVE); PROTEIN,URINE >=500 mg/dL (NEGATIVE); URINE SPECIFIC GRAVITY 1.024; UROBILINOGEN,URINE NEGATIVE mg/dL (<2.0)
[2017-12-30] MEDS ORDERED: NORMAL SALINE 1000 ML 1,000 ML IV PRN (17:03)
[2017-12-30] MEDS ORDERED: MELOXICAM 7.5 MG TABLET PO SCH (18:00)
[2017-12-30] MEDS ORDERED: DILTIAZEM HCL 180 MG CAPSULE.CR PO SCH (18:00)
[2017-12-30] MEDS ORDERED: TOLTERODINE TARTRATE 1 MG TABLET PO SCH (22:00)
[2017-12-31] MEDS: PIPERACILLIN SODIUM/TAZOBACTAM 3.375 GM in NORMAL SALINE 100 ML IV SCH (04:40)
[2017-12-31 05:14] VITALS: BP 134/60
[2017-12-31] MEDS ORDERED: (PENDING PHARMACY ID) (Ketotifen Fumarate [Refresh] 1 DROP) OU SCH (10:00)
[2017-12-31] MEDS ORDERED: HYDROCHLOROTHIAZIDE 12.5 MG CAPSULE PO SCH (10:00)
--- NOTE | 2018-01-04 08:14 | DISCHARGE SUMMARY E ---
Discharge Summary NAME: BRIDGETTE BOONE : 1950 AGE: 67Y ADMITTED: 12/29/2017 DISCHARGED: 12/31/2017 REASON FOR HOSPITALIZATION: The patient is a 67-year-old white female with a history of small bowel obstruction, status post exploratory laparotomy, lysis of adhesions by Dr. Ornelas on 12/19/2017. The patient was discharged home from the hospital 12/13/2017 and readmitted 6 days later with failure to thrive, partial small bowel obstruction symptoms. She was treated with NG tube and clinically improved. The inferior aspect of her wound was opened and she was started on dressing changes and eventually wound VAC and was discharged home. The patient developed excessive leakage from her midline incision the night before readmission and was brought back to the hospital for evaluation. She was admitted back to the surgicalist service for treatment. Past medical and surgical history can be found in the history and physical document. SUMMARY OF HOSPITALIZATION: The patient was kept n.p.o. on IV fluids and had a nasogastric tube inserted. She did have some clinical improvement from the nasogastric tube. CT scan showed no evidence of intra-abdominal fluid collection, and findings consistent with a partial small bowel obstruction in the right lower quadrant and diverticuloses. Clinically, she improved in terms of her abdominal discomfort and distention, but she had an excessive amount of fluid draining from her abdominal wall, opened incision in the inferior aspect. An appliance bag was placed on this site and the clear yellow fluid was analyzed to determine whether or not it was consistent with urine. The findings were inconclusive. However, over a 48-hour period, the drainage diminished. Nonetheless, because of increased frustration with her failure to improve completely, the patient and her desired transfer to a higher level of care. Arrangements were made for the patient to be transferred to [facility]; the accepting physician was Dr. Luis Miguel Solano, general surgeon. She was transferred on 12/31. FINAL DIAGNOSES: 1. Small bowel obstruction, status post exploratory laparotomy by Dr. Ornelas 12/19/2017 complicated by wound infection, VAC placement, and persisting wound drainage. 2. History of Leigh fundoplication. DISPOSITION: The patient will be transferred via ground to [facility] upon bed availability. DICTATING PHYSICIAN: MAGDIEL ZUNIGA M.D. [id number] PHY#: [id number] ID: [id number] JOB#: [id number] ACCT: [id number] cc:Franny PÉREZ, MAGDIEL ZUNIGA M.D. > [facility]
== END 2017-12-31 08:12 | disposition short-term general hospital (02) | DRG 389 ==
LOC: ER 00:12 → EH 09:28 → 2N 11:30
PROVIDERS: ADMIT Surgery; ATTEND Surgery
DX: K56.600 Partial intestinal obstruction, unspecified as to cause (principal); T81.31XA Disruption of external operation (surgical) wound, not elsewhere classified, initial encounter; K56.7 Ileus, unspecified; K57.90 Diverticulosis of intestine, part unspecified, without perforation or abscess without bleeding; I48.91 Unspecified atrial fibrillation; K21.9 Gastro-esophageal reflux disease without esophagitis; Z79.899 Other long term (current) drug therapy
CPT/HCPCS: 36415; 43752; 74018; 74177; 80053; 81001; 82565; 83690; 85025; 87040; 87070; 87086; 87088; 87186; 87205; 94640; 96361; 96374; 96376; 99285; J1170; J2543; J3010; J3490; J7030

== ENCOUNTER 2018-01-19 19:46 | Emergency (ER) | payer BC, MEDICARE ==
[2018-01-19 21:17] LABS: CALCIUM OXALATE CRYSTALS,URINE FEW /HPF
[2018-01-19 21:25] LABS: APPEARANCE,URINE CLEAR; BILIRUBIN,URINE NEGATIVE (NEGATIVE); COLOR,URINE YELLOW; GLUCOSE, URINE NEGATIVE (NEGATIVE); KETONES,URINE NEGATIVE (NEGATIVE); LEUKOCYTE ESTERASE,URINE TRACE (NEGATIVE); NITRITE,URINE NEGATIVE (NEGATIVE); PROTEIN,URINE NEGATIVE (NEGATIVE); URINE SPECIFIC GRAVITY 1.017
[2018-01-19 22:09] LABS: ABSOLUTE EOSINOPHILS # (AUTO) 0.1 10^3/uL (0.0-0.6); ABSOLUTE LYMPHOCYTES (AUTO) 1.8 10^3/uL (0.5-4.7); ABSOLUTE MONOCYTES (AUTO) 0.6 10^3/uL (0.1-1.4); ABSOLUTE NEUT (AUTO) 6.6 10^3/uL (1.7-8.2); BASOPHILS % (AUTO) 0.4 % (0-2); EOSINOPHILS % (AUTO) 0.6 % (0-6); HEMATOCRIT 41.8 % (36.0-47.0); LYMPHOCYTES % (AUTO) 19.7 % (13-45); MEAN CORPUSCULAR HEMOGLOBIN 31.2 pg (27.0-33.4); MEAN CORPUSCULAR HGB CONC 33.6 g/dL (32.0-36.0); MEAN CORPUSCULAR VOLUME 93 fl (80-97); MONOCYTES % (AUTO) 6.5 % (3-13); PLATELET COUNT 237 10^3/uL (150-450); RED BLOOD COUNT 4.51 10^6/uL (3.72-5.28); RED CELL DISTRIBUTION WIDTH 13.4 % (11.5-14.0); SEGMENTED NEUTROPHILS % (AUTO) 72.8 % (42-78); TOTAL CELLS COUNTED % (AUTO) 100 %
[2018-01-19 22:39] LABS: ALANINE AMINOTRANSFERASE 27 U/L (9-52); ALKALINE PHOSPHATASE 88 U/L (38-126); ANION GAP 9 (5-19); ASPARTATE AMINO TRANSFERASE 21 U/L (14-36); BILIRUBIN,DIRECT 0.3 mg/dL (0.0-0.4); BILIRUBIN,TOTAL 0.5 mg/dL (0.2-1.3); BLOOD UREA NITROGEN 18 mg/dL (7-20); CALCIUM 10.1 mg/dL (8.4-10.2); CARBON DIOXIDE 29 mmol/L (22-30); CHLORIDE 103 mmol/L (98-107); GLUCOSE 111 mg/dL (75-110); LIPASE 28.5 U/L (23-300); POTASSIUM 4.5 mmol/L (3.6-5.0); SODIUM 140.7 mmol/L (137-145); TOTAL PROTEIN 6.3 g/dL (6.3-8.2)
--- NOTE | 2018-01-19 22:44 | ER Document Report ---
ED General - General Chief Complaint: Abdominal Pain Stated Complaint: ABDOMINAL PAIN Time Seen by Provider: 01/19/18 22:19 Notes: Patient is a 67-year-old female presents with complaint of abdominal pain. Since her pain is mainly around her incision site. Patient has been out of the hospital several times due to history of bowel obstruction. Last time she was admitted she had an ileus but also infection of her surgical wound. She is transferred to [facility]. That time the told her that her infection improved and she was eventually discharged home. She has been doing well for the last 2 weeks. She said in last 24 hours she started having some pain and therefore is return to the ER. She has been passing gas. She did have a small bowel movement earlier. She has had no nausea vomiting. No fevers. She says the pain is nowhere near severe as it has been in the past. Other previous surgical history includes a Leigh. No other complaints at this time. TRAVEL OUTSIDE OF THE [place] IN LAST 30 DAYS: No - Related Data Allergies/Adverse Reactions: doxycycline [Doxycycline] Allergy (Severe, Verified 12/09/17 06:39) Past Medical History - Social History Smoking Status: Never Smoker Frequency of alcohol use: None Drug Abuse: None Family History: Reviewed & Not Pertinent - Past Medical History Cardiac Medical History: Reports: Hx Atrial Fibrillation Denies: Hx Coronary Artery Disease, Hx Heart Attack, Hx Hypertension Pulmonary Medical History: Denies: Hx Asthma, Hx Bronchitis, Hx COPD, Hx Pneumonia Neurological Medical History: Denies: Hx Cerebrovascular Accident, Hx Seizures Renal/ Medical History: Denies: Hx Peritoneal Dialysis GI Medical History: Reports: Hx Gastroesophageal Reflux Disease, Hx Hiatal Hernia - hx of repair, takes nexium. Denies: Hx Hepatitis, Hx Ulcer Musculoskeltal Medical History: Reports Hx Arthritis - mobic prn Infectious Medical History: Denies: Hx Hepatitis Past Surgical History: Reports: Hx Cholecystectomy, Hx Orthopedic Surgery - left knee replacement, Other - open Leigh fundoplication Ex Lap for SBO. Denies: Hx Mastectomy, Hx Open Heart Surgery, Hx Pacemaker - Immunizations Hx Diphtheria, Pertussis, Tetanus Vaccination: Yes Hx Pneumococcal Vaccination: 10/23/12 Review of Systems - Review of Systems Notes: My Normal Review Basic REVIEW OF SYSTEMS: CONSTITUTIONAL : Denies fever, chills, or sweats. Denies recent illness. EENT: Denies eye, ear, throat, or mouth pain or symptoms. Denies nasal or sinus congestion. CARDIOVASCULAR: Denies chest pain. RESPIRATORY: Denies cough, cold, or chest congestion. Denies shortness of breath, difficulty breathing, or wheezing. GASTROINTESTINAL: Some abdominal pain near incision site. GENITOURINARY: Denies difficulty urinating, painful urination, burning, frequency, or blood in urine. MUSCULOSKELETAL: Denies neck or back pain or joint pain or swelling. SKIN: Denies rash or skin lesions. NEUROLOGICAL: Denies altered mental status or loss of consciousness. Denies headache. Denies weakness or paralysis or loss of use of either side. Denies problems with gait or speech. Denies sensory or motor loss. ALL OTHER SYSTEMS REVIEWED AND NEGATIVE. Physical Exam - Vital signs Vitals: Temp Pulse Resp BP Pulse Ox 98.3 F 90 16 134/80 H 95 01/19/18 19:51 01/19/18 19:51 01/19/18 19:51 01/19/18 19:51 01/19/18 19:51 - Notes Notes: General Appearance: Well nourished, alert, cooperative, no acute distress, mild obvious discomfort. Vitals: reviewed, See vital signs table. Eyes: PERRL, EOMI, Conjuctiva clear Mouth: No decreasd moisture Throat: No tonsillar inflammation, No airway obstruction, No lymphadenopathy Neck: Supple, no neck tenderness, No thyromegaly Lungs: No wheezing, No rales, No rhonci, No accessory muscle use, good air exchange bilaterally. Heart: Normal rate, Regular rythm, No murmur, no rub Abdomen: Normal BS, soft, No rigidity, mild pain to palpation over the lower abdomen is worse on the right side. Incision site is clean. There is no redness or swelling associated with it. No abnormal discharge or drainage. Extremities: strength 5/5 in all extremities, good pulses in all extremities, no swelling or tenderness in the extremities, no edema. Skin: warm, dry, appropriate color, no rash Neuro: speech clear, oriented x 3, normal affect, responds appropriately to questions. Course - Re-evaluation Re-evalutation: 01/20/18 01:11 Since x-ray shows no evidence of obstruction. Patient looks very well. Her blood work is non-concerning. I did look her abdominal x-ray she does have large amount stool in the rectosigmoid area. We therefore given an enema which caused her have a very large bowel movement and now she feels much improved. At this time I feel she is safe to be discharged home. I encouraged her return to ER if she has worsening pain, fevers, vomiting, or feels unwell. Patient agrees with plan will be discharged home. Dictation of this chart was performed using voice recognition software; therefore, there may be some unintended grammatical errors. - Vital Signs Vital signs: Temp Pulse Resp BP Pulse Ox 98.3 F 63 18 123/63 99 01/19/18 19:51 01/19/18 23:26 01/19/18 23:26 01/19/18 23:26 01/19/18 23:26 - Laboratory Result Diagrams: 01/19/18 21:25 01/19/18 21:25 Laboratory results interpreted by me: 01/19/18 01/19/18 20:00 21:25 Glucose 111 H Urine Urobilinogen 2.0 H Ur Leukocyte Esterase TRACE H Discharge - Discharge Clinical Impression: Abdominal pain Qualifiers: Abdominal location: lower abdomen, unspecified Qualified Code(s): R10.30 - Lower abdominal pain, unspecified Condition: Good Disposition: HOME, SELF-CARE Additional Instructions: Please take some fiber supplementation in conjunction with the Miralax and stool softners. Please drink plenty of water. please return to the ER immediately if you develop fevers, worsening abdominal pain, or feel unwell. Please follow up with your doctor on Monday for reevaluation. Referrals: MARGARITA RAMIREZ NP [Primary Care Provider] - 01/22/18
--- NOTE | 2018-01-19 23:58 | RADIOLOGY REPORT (SQ) ---
EXAM DESCRIPTION: ACUTE ABDOMEN SERIES CLINICAL HISTORY: 67 years, Female, abdominal pain COMPARISON: 2.27.18. CT abdomen, 12/29/2017. TECHNIQUE: Three view LIMITATIONS: None. FINDINGS: Small left basilar atelectasis or scar. Moderate hiatal hernia. Herniorrhaphy clips of the mid abdomen. Intestinal gas pattern is otherwise unremarkable. IMPRESSION: Moderate hiatal hernia.
[2018-01-20] MEDS ORDERED: MINERAL OIL 30 ML UDCUP PR ONE (00:11)
[2018-01-20 01:31] VITALS: BP 127/65
== END 2018-01-20 01:30 | disposition home or self-care (01) ==
LOC: ER 19:46
DX: R10.30 Lower abdominal pain, unspecified (principal); G89.18 Other acute postprocedural pain; Z98.890 Other specified postprocedural states
CPT/HCPCS: 36415; 74022; 80053; 81001; 83690; 85025; 99284

== ENCOUNTER 2018-04-11 22:03 | Inpatient (IN) | payer BC, MEDICARE ==
[2018-04-11 22:38] LABS: ABSOLUTE BASOPHILS # (AUTO) 0.1 10^3/uL (0.0-0.2); ABSOLUTE EOSINOPHILS # (AUTO) 0.1 10^3/uL (0.0-0.6); ABSOLUTE LYMPHOCYTES (AUTO) 2.1 10^3/uL (0.5-4.7); ABSOLUTE MONOCYTES (AUTO) 0.9 10^3/uL (0.1-1.4); ABSOLUTE NEUT (AUTO) 10.6 10^3/uL (1.7-8.2); BASOPHILS % (AUTO) 0.8 % (0-2); EOSINOPHILS % (AUTO) 0.4 % (0-6); HEMATOCRIT 45.2 % (36.0-47.0); HEMOGLOBIN 15.4 g/dL (12.0-15.5); LYMPHOCYTES % (AUTO) 15.3 % (13-45); MEAN CORPUSCULAR HEMOGLOBIN 29.9 pg (27.0-33.4); MEAN CORPUSCULAR HGB CONC 34.1 g/dL (32.0-36.0); MEAN CORPUSCULAR VOLUME 88 fl (80-97); MONOCYTES % (AUTO) 6.2 % (3-13); PLATELET COUNT 274 10^3/uL (150-450); RED BLOOD COUNT 5.15 10^6/uL (3.72-5.28); RED CELL DISTRIBUTION WIDTH 13.8 % (11.5-14.0); SEGMENTED NEUTROPHILS % (AUTO) 77.3 % (42-78); TOTAL CELLS COUNTED % (AUTO) 100 %; WHITE BLOOD COUNT 13.7 10^3/uL (4.0-10.5)
[2018-04-11 22:43] LABS: APPEARANCE,URINE CLEAR; BILIRUBIN,URINE NEGATIVE (NEGATIVE); COLOR,URINE YELLOW; GLUCOSE, URINE NEGATIVE (NEGATIVE); KETONES,URINE NEGATIVE (NEGATIVE); LEUKOCYTE ESTERASE,URINE TRACE (NEGATIVE); NITRITE,URINE NEGATIVE (NEGATIVE); PROTEIN,URINE NEGATIVE (NEGATIVE); URINE SPECIFIC GRAVITY 1.013
[2018-04-11 22:57] LABS: ALANINE AMINOTRANSFERASE 25 U/L (9-52); ALBUMIN 4.3 g/dL (3.5-5.0); ALKALINE PHOSPHATASE 91 U/L (38-126); ANION GAP 8 (5-19); ASPARTATE AMINO TRANSFERASE 19 U/L (14-36); BILIRUBIN,DIRECT 0.5 mg/dL (0.0-0.4); BILIRUBIN,TOTAL 0.9 mg/dL (0.2-1.3); BLOOD UREA NITROGEN 17 mg/dL (7-20); CALCIUM 10.2 mg/dL (8.4-10.2); CARBON DIOXIDE 28 mmol/L (22-30); CHLORIDE 103 mmol/L (98-107); GLUCOSE 134 mg/dL (75-110); LIPASE 41.5 U/L (23-300); POTASSIUM 4.4 mmol/L (3.6-5.0); SODIUM 139.1 mmol/L (137-145); TOTAL PROTEIN 7.2 g/dL (6.3-8.2)
[2018-04-12] MEDS ORDERED: LIDOCAINE 2% VISCOUS SOLN 20 ML UDCUP PO ONE (00:10)
[2018-04-12] MEDS ORDERED: METOCLOPRAMIDE HCL ORAL SOLN 10 MG/10 ML UDCUP PO ONE (00:10)
[2018-04-12] MEDS ORDERED: MAG HYDROX/AL HYDROX/SIMETH SUSP 30 ML UDCUP PO ONE (00:10)
--- NOTE | 2018-04-12 01:39 | ER Document Report ---
ED General - General Chief Complaint: Abdominal Pain >50 Stated Complaint: ABDOMINAL PAIN Time Seen by Provider: 04/11/18 23:47 Mode of Arrival: Ambulatory Information source: Patient Notes: 67 yro ld female hx of gerd, hiatal hernia presents with complains of epigastric burning sensation over the past week going ot her back associated with burping and bad taste in her mouth. pt denies any fevers or chills, pt notes history of obstructions but notes she is passing gas and this does not feel like an obstruction TRAVEL OUTSIDE OF THE [place] IN LAST 30 DAYS: No - HPI Onset: Last week Onset/Duration: Intermittent Quality of pain: Burning Severity: Mild Pain Level: 1 Associated symptoms: Nausea Exacerbated by: Denies Relieved by: Other - stretching and burping Similar symptoms previously: No Recently seen / treated by doctor: No - Related Data Allergies/Adverse Reactions: doxycycline [Doxycycline] Allergy (Severe, Verified 12/09/17 06:39) Past Medical History - Social History Smoking Status: Never Smoker Cigarette use (# per day): No Chew tobacco use (# tins/day): No Smoking Education Provided: No Frequency of alcohol use: None Drug Abuse: None Family History: Reviewed & Not Pertinent Patient has suicidal ideation: No Patient has homicidal ideation: No - Past Medical History Cardiac Medical History: Reports: Hx Atrial Fibrillation Denies: Hx Coronary Artery Disease, Hx Heart Attack, Hx Hypertension Pulmonary Medical History: Denies: Hx Asthma, Hx Bronchitis, Hx COPD, Hx Pneumonia Neurological Medical History: Denies: Hx Cerebrovascular Accident, Hx Seizures Renal/ Medical History: Denies: Hx Peritoneal Dialysis GI Medical History: Reports: Hx Gastroesophageal Reflux Disease, Hx Hiatal Hernia - hx of repair, takes nexium. Denies: Hx Hepatitis, Hx Ulcer Musculoskeltal Medical History: Reports Hx Arthritis - mobic prn Infectious Medical History: Denies: Hx Hepatitis Past Surgical History: Reports: Hx Cholecystectomy, Hx Orthopedic Surgery - left knee replacement, Other - open Leigh fundoplication Ex Lap for SBO. Denies: Hx Mastectomy, Hx Open Heart Surgery, Hx Pacemaker - Immunizations Hx Diphtheria, Pertussis, Tetanus Vaccination: Yes Hx Pneumococcal Vaccination: 10/23/12 Review of Systems - Review of Systems Notes: REVIEW OF SYSTEMS: CONSTITUTIONAL : Denies fever, chills, or sweats. Denies recent illness. EENT: Denies eye, ear, throat, or mouth pain or symptoms. Denies nasal or sinus congestion or discharge. Denies throat, tongue, or mouth swelling or difficulty swallowing. CARDIOVASCULAR: Denies chest pain. Denies palpitations or racing or irregular heart beat. Denies ankle edema. RESPIRATORY: Denies cough, cold, or chest congestion. Denies shortness of breath, difficulty breathing, or wheezing. GASTROINTESTINAL: Admits to epigastric pain GENITOURINARY: Denies difficulty urinating, painful urination, burning, frequency, blood in urine, or discharge. FEMALE GENITOURINARY: Denies vaginal bleeding, heavy or abnormal periods, irregular periods. Denies vaginal discharge or odor. MUSCULOSKELETAL: Denies back or neck pain or stiffness. Denies joint pain or swelling. SKIN: Denies rash, lesions or sores. HEMATOLOGIC : Denies easy bruising or bleeding. LYMPHATIC: Denies swollen, enlarged glands. NEUROLOGICAL: Denies confusion or altered mental status. Denies passing out or loss of consciousness. Denies dizziness or lightheadedness. Denies headache. Denies weakness or paralysis or loss of use of either side. Denies problems with gait or speech. Denies sensory loss, numbness, or tingling. Denies seizures. PSYCHIATRIC: Denies anxiety or stress. Denies depression, suicidal ideation, or homicidal ideation. ALL OTHER SYSTEMS REVIEWED AND NEGATIVE. PHYSICAL EXAMINATION: GENERAL: Well-appearing, well-nourished and in no acute distress. HEAD: Atraumatic, normocephalic. EYES: Pupils equal round and reactive to light, extraocular movements intact, conjunctiva are normal. ENT: Nares patent, oropharynx clear without exudates. Moist mucous membranes. NECK: Normal range of motion, supple without lymphadenopathy LUNGS: Breath sounds clear to auscultation bilaterally and equal. No wheezes rales or rhonchi. HEART: Regular rate and rhythm without murmurs ABDOMEN: Soft, tender in the epigastric region. No guarding, no rebound. No masses appreciated. Female : deferred Musculoskeletal: Normal range of motion, no pitting or edema. No cyanosis. NEUROLOGICAL: Cranial nerves grossly intact. Normal speech, normal gait. Normal sensory, motor exams PSYCH: Normal mood, normal affect. SKIN: Warm, Dry, normal turgor, no rashes or lesions noted. Dictation was performed using [employer] recognition software Physical Exam - Vital signs Vitals: Temp Pulse Resp BP Pulse Ox 98.5 F 103 H 18 161/80 H 96 04/11/18 22:22 04/11/18 22:22 04/11/18 22:22 04/11/18 22:22 04/11/18 22:22 Course - Re-evaluation Re-evalutation: 04/12/18 01:39 mild qhite ocunt elevation noted, gi cocktail helped resolve symptoms, ct oral and iv contrast pending. 04/12/18 02:33 ct consistant with low grade sbo with transition at adhesions from mesh, Dr Knight will admit - Vital Signs Vital signs: Temp Pulse Resp BP Pulse Ox 98.5 F 68 18 143/73 H 96 04/11/18 22:22 04/12/18 00:35 04/12/18 01:02 04/12/18 01:02 04/12/18 01:02 - Laboratory Result Diagrams: 04/11/18 22:20 04/11/18 22:20 Laboratory results interpreted by me: 04/11/18 04/11/18 04/11/18 22:20 22:20 22:20 WBC 13.7 H Absolute Neutrophils 10.6 H Glucose 134 H Direct Bilirubin 0.5 H Urine Urobilinogen 4.0 H Ur Leukocyte Esterase TRACE H - Diagnostic Test Radiology reviewed: Image reviewed - SBO, Reports reviewed Discharge - Discharge Clinical Impression: Small bowel obstruction Condition: Stable Disposition: ADMITTED INPATIENT Admitting Provider: Surgicalist Unit Admitted: Medical Floor Referrals: MRAGARITA RAMIREZ NP [Primary Care Provider] - Follow up as needed
--- NOTE | 2018-04-12 02:21 | RADIOLOGY REPORT (SQ) ---
EXAM DESCRIPTION: CT ABDOMEN PELVIS WITH IV CONTRAST COMPLETED DATE/TME: 04/11/2018 23:47 CLINICAL HISTORY: 67 years Female, abd pain Comparison: None. Technique: IV and oral contrast. Coronal and sagittal reformat. This exam was performed according to our departmental dose-optimization program, which includes automated exposure control, adjustment of the mA and/or kV according to patient size and/or use of iterative reconstruction technique.[facility]: Dose Right [facility]: CareDose [facility]: Dose Right [facility]: Teradose 4D [facility]: Quibb LIMITATIONS: None Findings: Dilated small bowel with air-fluid levels; small bowel diameter measures up to 3.5 cm. Probable transition zone at the mid ileum appears associated with small bowel adhesions at anterior abdominal wall mesh. There is minimal fluid associated with the small bowel and mesh, image 52 of series 602. No gross ascites. Terminal ileum appears nondistended Orally administered contrast leaves the distal dilated small bowel nonopacified. Moderate disc desiccation, abdominal wall clips and mesh, 10 cm hiatal area, cholecystectomy clips. Inferior thorax, liver, pancreas, spleen, adrenals, renal system, pelvic organs, lymphatics, vasculature, and musculoskeleton appear otherwise unremarkable. IMPRESSION: 1. Low grade small bowel obstruction pattern. Probable transition zone associated with abdominal wall mesh/adhesions. 2. 10 cm hiatal hernia.
[2018-04-12] MEDS ORDERED: ONDANSETRON HCL INJ/PF 4 MG/2 ML SDV IV PRN (02:37)
[2018-04-12] MEDS ORDERED: POTASSI CL 20 MEQ/D5-1/2NS 1L 1,000 ML IV PRN (02:37)
[2018-04-12] MEDS ORDERED: MORPHINE SULFATE 10 MG/ML INJ IV PRN (02:37)
[2018-04-12] MEDS ORDERED: PHARMACY COMMUNICATION ORDER MC NR (02:45)
--- NOTE | 2018-04-12 05:53 | PDOC H&P ---
History of Present Illness Admission Date/PCP: 04/12/18 02:34 MARGARITA RAMIREZ NP Patient complains of: Abdominal pain History of Present Illness: BRIDGETTE BOONE is a 67 year old female with a 1 day history of epigastric abdominal pain. The patient reports that she recently had a steroid injection for her knee and recently resumed taking her Mobic. Patient denies any vomiting but has had dry heaves. The pain is sharp and stabbing. It is colicky. At its worst it is a 9 out of 10. Nothing makes the pain better, nothing makes it worse. Patient has had multiple bowel obstructions in the past , requiring surgery. She had a CT scan in the emergency department showing dilated loops of small bowel. Past Medical History Cardiac Medical History: Reports: Atrial Fibrillation Denies: Coronary Artery Disease, Myocardial Infarction, Hypertension Pulmonary Medical History: Denies: Asthma, Bronchitis, Chronic Obstructive Pulmonary Disease (COPD), Pneumonia Neurological Medical History: Denies: Seizures GI Medical History: Reports: Gastroesophageal Reflux Disease, Hiatal Hernia - hx of repair, takes nexium Denies: Hepatitis Musculoskeltal Medical History: Reports: Arthritis - mobic prn Hematology: Denies: Anemia, Sickle Cell Disease Past Surgical History Past Surgical History: Reports: Cholecystectomy, Orthopedic Surgery - left knee replacement, Other - open Leigh fundoplication Ex Lap for SBO Denies: Amputation, Mastectomy, Pacemaker Social History Smoking Status: Never Smoker Frequency of Alcohol Use: None Hx Recreational Drug Use: No Drugs: None Hx Prescription Drug Abuse: No Family History Family History: Reviewed & Not Pertinent Parental Family History Reviewed: Yes Children Family History Reviewed: Yes Sibling(s) Family History Reviewed.: Yes Medication/Allergy Home Medications: Acetaminophen [Tylenol 325 mg Tablet] 325 mg PO Q6HP PRN 12/19/17 Cetirizine HCl [Zyrtec 10 mg Tablet] 10 mg PO DAILY 12/19/17 Cyanocobalamin (Vitamin B-12) [Vitamin B-12 1000 mcg Tablet] 1,000 mcg PO DAILY 12/19/17 Diltiazem HCl [Cartia Xt] 180 mg PO QPM 12/19/17 Ergocalciferol (Vitamin D2) [Vitamin D2] 4,000 unit PO DAILY 12/19/17 Esomeprazole Magnesium [Nexium] 40 mg PO QPM 12/19/17 Fluticasone Propionate [Flonase Nasal [place] 50 Mcg/[place] 16 gm] 2 spray NASL DAILY 12/19/17 Hydrochlorothiazide [Hydrodiuril 12.5 mg Capsule] 12.5 mg PO DAILY 12/19/17 Hypromellose [Genteal] 1 applic OU QPM 12/19/17 Ketotifen Fumarate [Refresh] 1 drop OU DAILY 12/19/17 Meloxicam [Mobic] 7.5 mg PO QPM 12/19/17 [place]-3 Fatty Acids/Fish Oil [[place] 3 Fish Oil Softgel] 2,000 mg PO DAILY Rizatriptan Benzoate [Maxalt] 10 mg PO ASDIR PRN 12/19/17 Tolterodine Tartrate [Detrol] 2 mg PO BID 12/19/17 Allergies/Adverse Reactions: doxycycline [Doxycycline] Allergy (Severe, Verified 12/09/17 06:39) Review of Systems Constitutional: ABSENT: chills, fatigue, fever(s), headache(s) Eyes: ABSENT: visual disturbances Ears: ABSENT: hearing changes Nose, Mouth, and Throat: ABSENT: sore throat Cardiovascular: ABSENT: chest pain, dyspnea on exertion Respiratory: ABSENT: cough, hemoptysis Gastrointestinal: PRESENT: abdominal pain, bloating, constipation, nausea. ABSENT: vomiting Musculoskeletal: ABSENT: deformity Integumentary: ABSENT: pruritus, rash Neurological: ABSENT: abnormal speech, confusion, memory loss Psychiatric: ABSENT: anxiety, depression, hallucinations Endocrine: ABSENT: cold intolerance, heat intolerance Hematologic/Lymphatic: ABSENT: easy bleeding, easy bruising Physical Exam Vital Signs: Temp Pulse Resp BP Pulse Ox 98.2 F 63 16 153/73 H 98 04/12/18 04:50 04/12/18 04:50 04/12/18 04:50 04/12/18 04:50 04/12/18 04:50 Intake & Output 04/10/18 04/11/18 04/12/18 06:59 06:59 06:59 Weight 103 kg General appearance: PRESENT: no acute distress Head exam: PRESENT: atraumatic, normocephalic Eye exam: PRESENT: EOMI, PERRLA Mouth exam: PRESENT: moist Neck exam: ABSENT: meningismus, tenderness, thyromegaly, tracheal deviation Respiratory exam: PRESENT: clear to auscultation gilmar. ABSENT: chest wall tenderness, tachypnea Cardiovascular exam: PRESENT: RRR Pulses: PRESENT: normal radial pulses Vascular exam: PRESENT: normal capillary refill. ABSENT: pallor GI/Abdominal exam: PRESENT: soft. ABSENT: distended, hernia, tenderness Rectal exam: PRESENT: deferred Musculoskeletal exam: ABSENT: deformity Neurological exam: PRESENT: alert, awake, oriented to person, oriented to place , oriented to time, oriented to situation, CN II-XII grossly intact. ABSENT: motor sensory deficit Psychiatric exam: ABSENT: agitated, anxious, depressed Skin exam: ABSENT: cyanosis, erythema, jaundice Results Impressions: Abdomen/Pelvis CT 04/11/18 23:47 IMPRESSION: 1. Low grade small bowel obstruction pattern. Probable transition zone associated with abdominal wall mesh/adhesions. 2. 10 cm hiatal hernia. Assessment & Plan - Diagnosis (1) Epigastric abdominal pain Is this a current diagnosis for this admission?: Yes (2) Chronic constipation Is this a current diagnosis for this admission?: Yes - Plan Summary Plan Summary: This is a 67-year-old female with abdominal pain and dilation of her small bowel on CT scan. I have reviewed the patient's CT scan. I cannot identify any obvious transition zone. She does have a large amount of stool in her colon. Her NG tube is in place. Maintain NG tube for now. Repeat KUB tomorrow. No signs of acute abdomen at present. Further recommendations to be determined by the patient's clinical course.
[2018-04-12] MEDS ORDERED: ONDANSETRON HCL INJ/PF 4 MG/2 ML SDV ONE (06:36)
--- NOTE | 2018-04-12 06:50 | RADIOLOGY REPORT (SQ) ---
EXAM DESCRIPTION: XR CHEST 1 VIEW COMPLETED DATE/TME: 04/12/2018 00:00 CLINICAL HISTORY: 67 years Female, NG placement COMPARISON: 2..18 NUMBER OF VIEWS/TECHNIQUE: 1/AP FINDINGS: Adequate lung volume, moderate hiatal hernia, enteric tube tip is 2 cm below the diaphragm, upper abdominal clips. No pneumothorax. No acute bone defect. IMPRESSION: Enteric tube.
--- NOTE | 2018-04-12 09:36 | EKG REPORT ---
SEVERITY:- NORMAL ECG - SINUS RHYTHM : Confirmed by: Leann Parada 12-Apr-2018 09:35:51
[2018-04-12] MEDS ORDERED: ENOXAPARIN SODIUM INJ 40 MG/0.4 ML DISP.SYRIN SUBCUT SCH (10:00)
[2018-04-12] MEDS ORDERED: PANTOPRAZOLE SODIUM 40 MG VIAL IV SCH (10:00)
--- NOTE | 2018-04-12 10:02 | PDOC PROGRESS REPORT ---
Subjective Progress Note for:: 04/12/18 Subjective:: no c/o Reason For Visit: SBO Physical Exam Vital Signs: Temp Pulse Resp BP Pulse Ox 98.2 F 62 14 113/61 97 04/12/18 07:52 04/12/18 07:52 04/12/18 07:52 04/12/18 07:52 04/12/18 07:52 Intake & Output 04/11/18 04/12/18 04/13/18 06:59 06:59 06:59 Weight 103 kg General appearance: PRESENT: no acute distress Respiratory exam: PRESENT: clear to auscultation gilmar Cardiovascular exam: PRESENT: RRR GI/Abdominal exam: PRESENT: hypoactive bowel sounds, soft, other - ND, NT, no peritoneal signs Results Impressions: Abdomen/Pelvis CT 04/11/18 23:47 IMPRESSION: 1. Low grade small bowel obstruction pattern. Probable transition zone associated with abdominal wall mesh/adhesions. 2. 10 cm hiatal hernia. Chest X-Ray 04/12/18 00:00 IMPRESSION: Enteric tube. Assessment & Plan - Plan Summary Plan Summary: A/ HD #2 after admission for vague abdominal VSS, AF Abdomen benogn today, stools and flatus last night Minimal NGT output P/ Advance NGT 8 cm Abdominal acute obstructive series to evaluate small bowel appearance If no significant bowel dilatation, I will plan to give the patient 1 bottle of magnesium citrate
--- NOTE | 2018-04-12 10:52 | RADIOLOGY REPORT (SQ) ---
EXAM DESCRIPTION: ACUTE ABDOMEN SERIES COMPLETED DATE/TIME: 04/12/2018 10:38 am REASON FOR STUDY: r/o obstruction COMPARISON: CT abdomen pelvis 04/12/2018, 12/29/2017, 12/19/2017, 12/09/2017 Abdominal films 01/19/2018, 12/29/2017, 12/21/2017, 12/19/2017, 12/09/2017 NUMBER OF VIEWS: Three views. TECHNIQUE: Frontal chest, supine abdomen and upright abdomen radiographic images acquired. LIMITATIONS: None. FINDINGS: CHEST: Nasogastric tube tip in the stomach, side port at the GE junction. Retrocardiac hi atal hernia. There is minimal left basilar atelectasis. Lungs are otherwise clear. No pleural effusion or pneumo thorax. Old right posterior rib fracture. FREE AIR: None. No abnormal gas collections. BOWEL GAS PATTERN: Oral contrast given for CT exam 04/12/2018 is identified in the ascending and trans verse colon. However, there are persistent mildly dilated left upper quadrant small bowel loops with air-fluid level on upright view worrisome for partial small bowel obstruction. CALCIFICATIONS: No suspicious calcifications. HARDWARE: Laparoscopic ventral hernia repair. SOFT TISSUES: No gross mass or suggestion of organomegaly. BONES: No acute fracture. No worrisome bone lesions. OTHER: Residual IV contrast excreted into nondilated renal collecting systems and urinary bladder IMPRESSION: Nasogastric tube tip at the GE junction, side port in the distal esophagus. Stomach is decompressed. Oral contrast given for CT exam 04/12/2018 is seen in the colon. Persistent mildly dilated small bowel loops with air-fluid levels on upright view worrisome for parti al small bowel obstruction. TECHNICAL DOCUMENTATION: JOB ID: [id number] [email or web address]- All Rights Reserved Reading location - IP/workstation name: [email or web address]
[2018-04-12 15:01] VITALS: BP 153/73
--- NOTE | 2018-04-13 09:15 | DISCHARGE SUMMARY E ---
Discharge Summary NAME: BRIDEGTTE BOONE : 1950 AGE: 67Y ADMITTED: 04/11/2018 DISCHARGED: 04/12/2018 FINAL DIAGNOSIS: Ileus. COMPLICATIONS: None. HOSPITAL COURSE: This is a 67-year-old female status post exploratory laparotomy for small bowel obstruction back in October 2017. The patient presented to the hospital on 04/11/2018 in the evening complaining of abdominal pain, cramp like, intense nausea. The patient had the bowel movement with flatus in the Emergency Room. The following day on evaluation, however, she was admitted for possible small bowel obstruction. She had a nasogastric tube inserted. A CAT scan of the abdomen and pelvis was done with IV and oral contrast and these revealed the possibility of a partial mechanical small bowel obstruction. The patient was admitted, kept n.p.o., with nasogastric tube on low continuous suction. The following morning the patient had no complaints. Her physical exam was unremarkable with abdomen soft. Two-view x-ray of the abdomen was obtained revealing a normal gas pattern and contrast in the colon. DISCHARGE ORDERS: The patient was discharged on 04/12/2018. She was given a follow-up appointment as needed with her primary care provider and also a p.r.n. follow-up appointment in the surgical clinic with the PA, Meeta Bhatia. She was given instructions to follow a low-residual diet, to limit the amount of vegetables in her diet. Colace and MiraLax should be used for constipation. Activity is as tolerated. DICTATING PHYSICIAN: BOSTON TOPETE M.D. [id number] PHY#: [id number] ID: [id number] JOB#: [id number] ACCT: [id number] cc:Gino LARSON M.D. > MTDD
== END 2018-04-12 16:20 | disposition home or self-care (01) | DRG 390 ==
LOC: ER 22:03 → EH 04-12 02:34 → 4S 04-12 04:35
PROVIDERS: ADMIT Surgery; ATTEND Surgery
PROC: 0D9670Z Drainage of Stomach with Drainage Device, Via Natural or Artificial Opening (ICD-10-PCS; principal; 2018-04-12)
DX: K56.690 Other partial intestinal obstruction (principal); I48.91 Unspecified atrial fibrillation; K21.9 Gastro-esophageal reflux disease without esophagitis; M19.90 Unspecified osteoarthritis, unspecified site; K44.9 Diaphragmatic hernia without obstruction or gangrene; Z96.652 Presence of left artificial knee joint; K59.09 Other constipation; Z90.49 Acquired absence of other specified parts of digestive tract; Z79.899 Other long term (current) drug therapy; Z88.3 Allergy status to other anti-infective agents
CPT/HCPCS: 36415; 71045; 74022; 74177; 80053; 81001; 83690; 85025; 93005; 93010; 99285; J2270; J2405; J3480; J3490; S0164

== ENCOUNTER 2019-08-08 07:14 | Emergency (ER) | payer BC, MEDICARE ==
[2019-08-08] MEDS ORDERED: MORPHINE SULFATE 10 MG/ML INJ IV ONE (07:30)
[2019-08-08] MEDS ORDERED: ONDANSETRON HCL INJ/PF 4 MG/2 ML SDV IV ONE (07:30)
[2019-08-08 08:29] LABS: ABSOLUTE BASOPHILS # (AUTO) 0.1 10^3/uL (0.0-0.2); ABSOLUTE LYMPHOCYTES (AUTO) 1.2 10^3/uL (0.5-4.7); ABSOLUTE MONOCYTES (AUTO) 0.5 10^3/uL (0.1-1.4); ABSOLUTE NEUT (AUTO) 9.6 10^3/uL (1.7-8.2); BASOPHILS % (AUTO) 0.5 % (0-2); EOSINOPHILS % (AUTO) 0.3 % (0-6); HEMOGLOBIN 15.4 g/dL (12.0-15.5); LYMPHOCYTES % (AUTO) 10.3 % (13-45); MEAN CORPUSCULAR HEMOGLOBIN 30.5 pg (27.0-33.4); MEAN CORPUSCULAR HGB CONC 33.5 g/dL (32.0-36.0); MEAN CORPUSCULAR VOLUME 91 fl (80-97); PLATELET COUNT 194 10^3/uL (150-450); RED BLOOD COUNT 5.05 10^6/uL (3.72-5.28); RED CELL DISTRIBUTION WIDTH 13.4 % (11.5-14.0); SEGMENTED NEUTROPHILS % (AUTO) 84.9 % (42-78); TOTAL CELLS COUNTED % (AUTO) 100 %; WHITE BLOOD COUNT 11.3 10^3/uL (4.0-10.5)
[2019-08-08 08:56] LABS: ALBUMIN 4.1 g/dL (3.5-5.0); ALKALINE PHOSPHATASE 87 U/L (38-126); ANION GAP 10 (5-19); ASPARTATE AMINO TRANSFERASE 23 U/L (14-36); BILIRUBIN,DIRECT 0.2 mg/dL (0.0-0.4); BILIRUBIN,TOTAL 0.7 mg/dL (0.2-1.3); BLOOD UREA NITROGEN 18 mg/dL (7-20); CARBON DIOXIDE 25 mmol/L (22-30); CHLORIDE 103 mmol/L (98-107); GLUCOSE 120 mg/dL (75-110); POTASSIUM 4.1 mmol/L (3.6-5.0); TOTAL PROTEIN 7.2 g/dL (6.3-8.2)
--- NOTE | 2019-08-08 11:06 | RADIOLOGY REPORT (SQ) ---
EXAM DESCRIPTION: CT ABD/PELVIS WITH IV ONLY COMPLETED DATE/TIME: 08/08/2019 10:35 am REASON FOR STUDY: abd pain COMPARISON: None. TECHNIQUE: CT scan of the abdomen and pelvis performed using helical scanning technique with dynamic intravenous contrast injection. No oral contrast. Images reviewed with lung, soft tissue, and bone windows. Reconstructed coronal and sagittal MPR images reviewed. Delayed images for evaluation of the urinary system also acquired. All images stored on PACS. All CT scanners at this facility use dose modulation, iterative reconstruction, and/or weight based d osing when appropriate to reduce radiation dose to as low as reasonably achievable (ALARA). [facility]: Dose Right [facility]: CareDose [facility]: Dose Right [facility]: Teradose 4D [facility]: Spontacts CONTRAST TYPE AND DOSE: contrast/concentration: Isovue 350.00 mg/ml; Total Contrast Delivered: 100.0 ml; Total Saline Delivered: 29.2 ml RENAL FUNCTION: BUN 18 creatinine 0.98 RADIATION DOSE: CT Rad equipment meets quality standard of care and radiation dose reduction techniq ues were employed. CTDIvol: 18.0 - 19.8 mGy. DLP: 2050 mGy-cm.. LIMITATIONS: None. FINDINGS: LOWER CHEST: Hiatal hernia. LIVER: There is diffuse mild hypoattenuation of the liver. There is no mass. SPLEEN: Normal size. No focal lesions. PANCREAS: No masses. No significant calcifications. No adjacent inflammation or peripancreatic fluid collections. Pancreatic duct not dilated. GALLBLADDER: Surgically absent. ADRENAL GLANDS: No significant masses or asymmetry. RIGHT KIDNEY AND URETER: No solid masses. No significant calcifications. No hydronephrosis or hyd roureter. LEFT KIDNEY AND URETER: No solid masses. There are parapelvic cysts. No significant calcifications . No hydronephrosis or hydroureter. AORTA AND VESSELS: No aneurysm. No dissection. Renal arteries, SMA, celiac without stenosis. RETROPERITONEUM: No retroperitoneal adenopathy, hemorrhage or masses. BOWEL AND PERITONEAL CAVITY: There is a small fluid collection with air-fluid level near the carmen he patis on image 26 series 3. This may represent a duodenum diverticulum. There is sigmoid diverticul osis with no associated acute inflammation. APPENDIX: Not identified. PELVIS: The urinary bladder is normal. No pelvic mass or fluid collection. ABDOMINAL WALL: There are 2 midline ventral hernias about 2 cm apart. The larger is periumbilical an d measures 5 cm in width and contains unobstructed bowel. A mesh graft is seen in this area but the graft is split at this level. The 2nd ventral hernia is inferior to the 1st and measures about 3 cm in width. This also contains unobstructed bowel. BONES: No significant or acute findings. OTHER: No other significant finding. IMPRESSION: 1. Hiatal hernia. 2. Hepatic steatosis. 3. Small duodenal diverticulum. 4. There are 2 ventral hernias containing unobstructed bowel as described. 5. There is diverticulosis coli. TECHNICAL DOCUMENTATION: JOB ID: [id number] Quality ID # [id number]: Final reports with documentation of one or more dose reduction techniques (e.g., Au tomated exposure control, adjustment of the mA and/or kV according to patient size, use of iterative reconstruction technique) 2010 [employer]- All Rights Reserved Reading location - IP/workstation name: [email or web address]
[2019-08-08 11:34] LABS: APPEARANCE,URINE SLIGHTLY-CLOUDY; BILIRUBIN,URINE NEGATIVE (NEGATIVE); COLOR,URINE YELLOW; GLUCOSE, URINE NEGATIVE (NEGATIVE); KETONES,URINE NEGATIVE (NEGATIVE); LEUKOCYTE ESTERASE,URINE NEGATIVE (NEGATIVE); NITRITE,URINE NEGATIVE (NEGATIVE); PROTEIN,URINE NEGATIVE (NEGATIVE); URINE SPECIFIC GRAVITY 1.014; UROBILINOGEN,URINE NEGATIVE mg/dL (<2.0)
--- NOTE | 2019-08-08 11:52 | ER Document Report ---
ED General - General Chief Complaint: Abdominal Pain >50 Stated Complaint: ABDOMINAL PAIN Time Seen by Provider: 08/08/19 07:26 Primary Care Provider: MARGARITA RAMIREZ NP [Primary Care Provider] - Follow up as needed Mode of Arrival: Ambulatory Information source: Patient TRAVEL OUTSIDE OF THE [place] IN LAST 30 DAYS: No - HPI Notes: Patient presents with proximate 5 hours of abdominal pain. Is located in the center of her abdomen. It was constant. And then suddenly it got much better. She states she feels much better now. At one point it was severe. Nothing made it better or worse. It radiated across her abdomen. She states she does have a history of ventral hernias that are being managed by Dr. Knight. She has been having normal bowel movements. She has had some nausea but no vomiting. No problems with urination. No fevers. - Related Data Allergies/Adverse Reactions: doxycycline [Doxycycline] Allergy (Severe, Verified 08/08/19 07:24) Past Medical History - General Information source: Patient - Social History Smoking Status: Never Smoker Chew tobacco use (# tins/day): No Frequency of alcohol use: None Drug Abuse: None Family History: Reviewed & Not Pertinent Patient has suicidal ideation: No Patient has homicidal ideation: No - Past Medical History Cardiac Medical History: Reports: Hx Atrial Fibrillation Denies: Hx Coronary Artery Disease, Hx Heart Attack, Hx Hypertension Pulmonary Medical History: Denies: Hx Asthma, Hx Bronchitis, Hx COPD, Hx Pneumonia Neurological Medical History: Denies: Hx Cerebrovascular Accident, Hx Seizures Renal/ Medical History: Denies: Hx Peritoneal Dialysis GI Medical History: Reports: Hx Gastroesophageal Reflux Disease, Hx Hiatal Hernia - hx of repair, takes nexium. Denies: Hx Hepatitis, Hx Ulcer Musculoskeletal Medical History: Reports Hx Arthritis - mobic prn Infectious Medical History: Denies: Hx Hepatitis Past Surgical History: Reports: Hx Cholecystectomy, Hx Orthopedic Surgery - left knee replacement, Other - open Leigh fundoplication Ex Lap for SBO. Denies: Hx Mastectomy, Hx Open Heart Surgery, Hx Pacemaker - Immunizations Hx Diphtheria, Pertussis, Tetanus Vaccination: Yes Hx Pneumococcal Vaccination: 10/23/12 Review of Systems - Review of Systems Constitutional: denies: Chills, Fever Cardiovascular: denies: Chest pain, Palpitations Respiratory: denies: Cough, Short of breath Gastrointestinal: Abdominal pain, Nausea. denies: Diarrhea -: Yes All other systems reviewed and negative Physical Exam - Vital signs Vitals: Temp Pulse Resp BP Pulse Ox 98.2 F 98 18 136/79 H 96 08/08/19 07:21 08/08/19 07:21 08/08/19 07:21 08/08/19 07:21 08/08/19 07:21 Interpretation: Normal - General General appearance: Appears well, Alert - HEENT Head: Normocephalic, Atraumatic Eyes: Normal Pupils: PERRL - Respiratory Respiratory status: No respiratory distress Chest status: Nontender Breath sounds: Normal Chest palpation: Normal - Cardiovascular Rhythm: Regular Heart sounds: Normal auscultation Murmur: No - Abdominal Inspection: Morbidly Obese Distension: Distended Bowel sounds: Normal Tenderness: Other - Patient has some minimal tenderness over the ventral hernia. However the ventral her hernia is easily reducible. - Back Back: Normal, Nontender - Extremities General upper extremity: Normal inspection, Nontender, Normal color, Normal ROM, Normal temperature General lower extremity: Normal inspection, Nontender, Normal color, Normal ROM, Normal temperature, Normal weight bearing. No: Jamey's sign - Neurological Neuro grossly intact: Yes Cognition: Normal Orientation: AAOx4 Terrie Coma Scale Eye Opening: Spontaneous Terrie Coma Scale Verbal: Oriented [place] Coma Scale Motor: Obeys Commands Terrie Coma Scale Total: 15 Speech: Normal Motor strength normal: LUE, RUE, LLE, RLE Sensory: Normal - Psychological Associated symptoms: Normal affect, Normal mood - Skin Skin Temperature: Warm Skin Moisture: Dry Skin Color: Normal Course - Re-evaluation Re-evalutation: 08/08/19 11:49 Patient presented with the sudden onset of severe abdominal pain that had become much better by the time she arrived here. Exam was consistent with an easily reducible ventral hernia. I think patient may have had some partially incarcerated bowel that broke free which were the cause of her symptoms. At this time patient's vital signs and exam are unremarkable. CT does not show any acute findings that require intervention. Patient's laboratories other than a mildly elevated white count are unremarkable. I believe the mildly elevated white blood cell count is secondary to the problems the patient had in the middle the night with the hernia. - Vital Signs Vital signs: Temp Pulse Resp BP Pulse Ox 98.2 F 98 18 136/79 H 96 08/08/19 07:21 08/08/19 07:21 08/08/19 07:21 08/08/19 07:21 08/08/19 07:21 - Laboratory Result Diagrams: 08/08/19 08:18 08/08/19 08:18 Laboratory results interpreted by me: 08/08/19 08/08/19 08/08/19 08:18 08:18 10:30 WBC 11.3 H Lymph % (Auto) 10.3 L Absolute Neuts (auto) 9.6 H Seg Neutrophils % 84.9 H Est GFR (MDRD) Non-Af 56 L Glucose 120 H Urine Blood SMALL H - Diagnostic Test Radiology reviewed: Image reviewed, Reports reviewed Discharge - Discharge Clinical Impression: Acute abdominal pain Ventral hernia Qualifiers: Obstruction and gangrene presence: without obstruction or gangrene Qualified Code(s): K43.9 - Ventral hernia without obstruction or gangrene Condition: Stable Disposition: HOME, SELF-CARE Instructions: Abdominal Pain ([facility]) Additional Instructions: Please call Dr. Knight as soon as possible to schedule follow-up Prescriptions: Tramadol HCl [Ultram] 50 mg PO Q6 PRN 3 Days #12 tablet PRN Reason: Ondansetron HCl [Zofran 4 mg Tablet] 1 - 2 tab PO Q4H PRN #10 tablet PRN Reason: Referrals: SHASHI KNIGHT MD [ACTIVE STAFF] - Follow up in 3-5 days
[2019-08-08 12:53] VITALS: BP 127/58
== END 2019-08-08 12:40 | disposition home or self-care (01) ==
LOC: ER 07:14
DX: K43.9 Ventral hernia without obstruction or gangrene (principal); R10.9 Unspecified abdominal pain; R11.0 Nausea; D72.829 Elevated white blood cell count, unspecified; Z88.1 Allergy status to other antibiotic agents; Z87.19 Personal history of other diseases of the digestive system; Z90.49 Acquired absence of other specified parts of digestive tract
CPT/HCPCS: 36415; 83690; 85025; 80053; 81001; 74177; J2270; J2405; 96374; 96375; 99284

== ENCOUNTER 2019-08-11 10:15 | Emergency (ER) | payer BC, MEDICARE ==
--- NOTE | 2019-08-11 12:01 | ER Document Report ---
ED Medical Screen (RME) - General Chief Complaint: Fall Injury Stated Complaint: FALL/HEAD AND RIB PAIN Time Seen by Provider: 08/11/19 11:58 Primary Care Provider: MARGARITA RAMIREZ NP [Primary Care Provider] - Follow up as needed Mode of Arrival: Ambulatory Information source: Patient Notes: 68-year-old female presented to ED for tripping over a cord last night. She is complaining of pain to the right side of her face with a black eye and right rib pain. She does have pain with inspiration on the right ribs. No obvious bruising at this time and no crepitus at this time lung is clear. Will get a x- ray of the right ribs and the face. States he has some tenderness to the right little finger but she has a full range of motion and she states she thinks it is just sore on x-ray the right hand. Treat with some Tylenol at this time until she is seen by with 1 of the providers. Patient is alert oriented respirations regular nonlabored at this time. She does have pain with inspiration. I have greeted and performed a rapid initial assessment of this patient. A comprehensive ED assessment and evaluation of the patient, analysis of test results and completion of medical decision making process will be conducted by an additional ED providers. TRAVEL OUTSIDE OF THE [place] IN LAST 30 DAYS: No - Related Data Allergies/Adverse Reactions: doxycycline [Doxycycline] Allergy (Severe, Verified 08/08/19 07:24) Past Medical History - Social History Frequency of alcohol use: None Drug Abuse: None - Past Medical History Cardiac Medical History: Reports: Hx Atrial Fibrillation - diltiazem Denies: Hx Coronary Artery Disease, Hx Heart Attack, Hx Hypertension Pulmonary Medical History: Denies: Hx Asthma, Hx Bronchitis, Hx COPD, Hx Pneumonia Neurological Medical History: Denies: Hx Cerebrovascular Accident, Hx Seizures Renal/ Medical History: Denies: Hx Peritoneal Dialysis GI Medical History: Reports: Hx Gastroesophageal Reflux Disease, Hx Hiatal Hernia - hx of repair, takes nexium. Denies: Hx Hepatitis, Hx Ulcer Musculoskeltal Medical History: Reports Hx Arthritis - mobic prn Infectious Medical History: Denies: Hx Hepatitis Past Surgical History: Reports: Hx Cholecystectomy, Hx Orthopedic Surgery - left knee replacement, Other - open Leigh fundoplication Ex Lap for SBO. Denies: Hx Mastectomy, Hx Open Heart Surgery, Hx Pacemaker - Immunizations Hx Diphtheria, Pertussis, Tetanus Vaccination: Yes Physical Exam - Vital signs Vitals: Temp Pulse Resp BP Pulse Ox 98.3 F 59 L 22 H 125/56 L 96 08/11/19 10:34 08/11/19 10:34 08/11/19 10:34 08/11/19 10:34 08/11/19 10:34 Course - Vital Signs Vital signs: Temp Pulse Resp BP Pulse Ox 98.3 F 59 L 22 H 125/56 L 96 08/11/19 10:34 08/11/19 10:34 08/11/19 10:34 08/11/19 10:34 08/11/19 10:34 Doctor's Discharge - Discharge Referrals: MARGARITA RAMIREZ NP [Primary Care Provider] - Follow up as needed
[2019-08-11] MEDS ORDERED: ACETAMINOPHEN 325 MG TABLET PO ONE (12:05)
--- NOTE | 2019-08-11 12:48 | RADIOLOGY REPORT (SQ) ---
EXAM DESCRIPTION: HAND RIGHT 3 VIEWS COMPLETED DATE/TIME: 08/11/2019 12:29 pm REASON FOR STUDY: Fall pain injury ribs hand and face COMPARISON: None. EXAM PARAMETERS: NUMBER OF VIEWS: Three views. TECHNIQUE: AP, lateral and oblique radiographic images acquired of the right hand. LIMITATIONS: None. FINDINGS: MINERALIZATION: Normal. BONES: No acute fracture or dislocation. No worrisome bone lesions. JOINTS: Degenerative changes in the interphalangeal joints with small osteophytes. SOFT TISSUES: No soft tissue swelling. No foreign body. OTHER: No other significant finding. IMPRESSION: CHRONIC DEGENERATIVE CHANGES. NO RADIOGRAPHIC EVIDENCE OF ACUTE INJURY. TECHNICAL DOCUMENTATION: JOB ID: [id number] [employer]- All Rights Reserved Reading location - IP/workstation name: [email or web address]
--- NOTE | 2019-08-11 12:49 | RADIOLOGY REPORT (SQ) ---
EXAM DESCRIPTION: FACIAL BONES COMPLETED DATE/TIME: 08/11/2019 12:29 pm REASON FOR STUDY: Right-sided periorbital bruising COMPARISON: None. NUMBER OF VIEWS: Three view. TECHNIQUE: Images of the facial bones acquired. LIMITATIONS: None. FINDINGS: ORBITS: No fracture. No foreign body. SINUSES: No mucosal thickening. No air fluid levels. FACIAL BONES: No fracture. OTHER: No other significant finding. IMPRESSION: NO FOREIGN BODY OR FRACTURE OF THE FACIAL BONES. TECHNICAL DOCUMENTATION: JOB ID: [id number] [employer] All Rights Reserved Reading location - IP/workstation name: [email or web address]
--- NOTE | 2019-08-11 12:50 | RADIOLOGY REPORT (SQ) ---
EXAM DESCRIPTION: RIBS RIGHT W/PA CHEST COMPLETED DATE/TIME: 08/11/2019 12:29 pm REASON FOR STUDY: Fall pain injury ribs hand and face COMPARISON: None. TECHNIQUE: Frontal view of the chest and additional views of the right ribs acquired. NUMBER OF VIEWS: Three view. LIMITATIONS: None. FINDINGS: FRONTAL CXR: No pneumothorax. No pleural effusion. No atelectasis or infiltrates. RIBS: Old healed rib fracture. No acute rib fractures. No lytic or blastic bony lesions. OTHER: No other significant finding. IMPRESSION: NO PNEUMOTHORAX. NO ACUTE RIB FRACTURES. COMMENT: SITE OF TRAUMA/COMPLAINT MARKED/STAMP COMPLETED: NO. TECHNICAL DOCUMENTATION: JOB ID: [id number] [employer]- All Rights Reserved Reading location - IP/workstation name: [email or web address]
--- NOTE | 2019-08-11 13:47 | ER Document Report ---
ED Fall - General Chief Complaint: Fall Injury Stated Complaint: FALL/HEAD AND RIB PAIN Time Seen by Provider: 08/11/19 11:58 Primary Care Provider: MARGARITA ENCARNACION NP [Primary Care Provider] - Follow up as needed Mode of Arrival: Ambulatory Information source: Patient Notes: Patient is a 68-year-old female who presents to the emergency department with a chief complaint of fall. Patient reports yesterday around 7 PM she tripped over a computer cord. Patient reports she did fall onto her left side striking the carpet. Patient reports this was an area rug over laminate joaquina. Patient denies loss of consciousness. Patient denies use of blood thinners. Patient complaint of right hand pain, right bruising around her eye and right rib pain. Patient reports the rib pain is worse with movement, deep breathing or cough. Patient denies visual changes to the affected eye. Patient denies nausea or vomiting after the incident. TRAVEL OUTSIDE OF THE [place] IN LAST 30 DAYS: No - Related data Allergies/Adverse Reactions: doxycycline [Doxycycline] Allergy (Severe, Verified 08/08/19 07:24) Past Medical History - General Information source: Patient - Social History Smoking Status: Unknown if Ever Smoked Frequency of alcohol use: None Drug Abuse: None Lives with: Family Family History: Reviewed & Not Pertinent Patient has suicidal ideation: No Patient has homicidal ideation: No - Past Medical History Cardiac Medical History: Reports: Hx Atrial Fibrillation - diltiazem Denies: Hx Coronary Artery Disease, Hx Heart Attack, Hx Hypertension Pulmonary Medical History: Reports: Hx Sleep Apnea Denies: Hx Asthma, Hx Bronchitis, Hx COPD, Hx Pneumonia EENT Medical History: Reports: None Neurological Medical History: Reports: None. Denies: Hx Cerebrovascular Accident, Hx Seizures Endocrine Medical History: Reports: None Renal/ Medical History: Reports: None. Denies: Hx Peritoneal Dialysis Malignancy Medical History: Reports: None GI Medical History: Reports: Hx Gastroesophageal Reflux Disease, Hx Hiatal Varghese ia - hx of repair, takes nexium. Denies: Hx Hepatitis, Hx Ulcer Musculoskeletal Medical History: Reports Hx Arthritis - mobic prn Skin Medical History: Reports None Psychiatric Medical History: Reports: None Traumatic Medical History: Reports: None Infectious Medical History: Reports: None. Denies: Hx Hepatitis Past Surgical History: Reports: Hx Cholecystectomy, Hx Orthopedic Surgery - left knee replacement, Other - open Leigh fundoplication Ex Lap for SBO. Denies: Hx Mastectomy, Hx Open Heart Surgery, Hx Pacemaker - Immunizations Hx Diphtheria, Pertussis, Tetanus Vaccination: Yes Hx Pneumococcal Vaccination: 10/23/12 Review of Systems - Review of Systems Constitutional: No symptoms reported EENT: See HPI Cardiovascular: No symptoms reported Respiratory: No symptoms reported Gastrointestinal: No symptoms reported Genitourinary: No symptoms reported Female Genitourinary: No symptoms reported Musculoskeletal: See HPI Hematologic/Lymphatic: See HPI Neurological/Psychological: No symptoms reported Physical Exam - Vital signs Vitals: Temp Pulse Resp BP Pulse Ox 98.3 F 59 L 22 H 125/56 L 96 08/11/19 10:34 08/11/19 10:34 08/11/19 10:34 08/11/19 10:34 08/11/19 10:34 Interpretation: Normal - Notes Notes: GENERAL: Well-appearing, well-nourished and in no acute distress. HEAD: Normocephalic. Negative britton's sign. EYES: Pupils equal round and reactive to light, extraocular movements intact, sclera anicteric, conjunctiva are normal. No conjunctival hemorrhage. Ecchymosis noted to the inferior aspect of the right eyelid. Patient is able to open her eye. ENT: Left TMs normal, unable to visualize the right TM as there is a large amount of dried blood noted within the ear canal (see course note, at this is not a new finding), nares patent, oropharynx clear without exudates. Moist mucous membranes. NECK: Normal range of motion, supple without lymphadenopathy or JVD. LUNGS: Breath sounds clear to auscultation bilaterally and equal. No wheezes rales or rhonchi. Patient does have an anterior rib tenderness with palpation. There is no ecchymosis noted to the area. No crepitus palpated. HEART: Regular rate and rhythm without murmurs, rubs or gallops. ABDOMEN: Soft, nontender, normoactive bowel sounds. No guarding, no rebound. No masses appreciated. BACK: No cervical, thoracic, lumbar midline tenderness. No saddle anesthesia, normal distal neurovascular exam. GENITOURINARY: Deferred. EXTREMITIES: Patient does have edema noted to the dorsal aspect of the right hand. Patient does have full range of motion of the right wrist. There is no obvious deformity. No erythema or ecchymosis. Patient has a strong rocket scientist to the right hand. Patient has good flexion-extension of all fingers. NEUROLOGICAL: Cranial nerves II through XII grossly intact. Normal speech, normal gait. PSYCH: Normal mood, normal affect. SKIN: Warm, Dry, normal turgor, no rashes or lesions noted. Course - Re-evaluation Re-evalutation: 08/11/19 Patient reports she recently had her eardrum rupture on the right side. Patient states she did see ENT last week and was given Ciprodex. She reports that the doctor at that time had a hard time visualizing the TM there was a lot of dried blood within the ear canal. Patient states this was present before the fall. Patient's physical exam is very reassuring. I will provide the patient with a incentive spirometer she is being diagnosed with a right anterior rib contusion. I did give the patient strict return precautions and informed her to follow-up with her primary care physician Margarita Encarnacion NP. Patient completely alert and oriented x3, nontoxic-appearing. - Vital Signs Vital signs: Temp Pulse Resp BP Pulse Ox 97.4 F 52 L 16 145/59 H 99 08/11/19 13:56 08/11/19 13:56 08/11/19 13:56 08/11/19 13:56 08/11/19 13:56 - Diagnostic Test Radiology reviewed: Reports reviewed Radiology results interpreted by me: 08/11/19 16:50 Hand X-Ray 08/11/19 12:03 IMPRESSION: CHRONIC DEGENERATIVE CHANGES. NO RADIOGRAPHIC EVIDENCE OF ACUTE INJURY. Ribs w/Chest X-Ray 08/11/19 12:03 IMPRESSION: NO PNEUMOTHORAX. NO ACUTE RIB FRACTURES. Facial Bones X-Ray 08/11/19 12:05 IMPRESSION: NO FOREIGN BODY OR FRACTURE OF THE FACIAL BONES. Discharge - Discharge Clinical Impression: Hand sprain Qualifiers: Encounter type: initial encounter Laterality: right Qualified Code(s): S63.91XA - Sprain of unspecified part of right wrist and hand, initial encounter Contusion of rib on right side Qualifiers: Encounter type: initial encounter Qualified Code(s): S20.211A - Contusion of right front wall of thorax, initial encounter Facial injury Qualifiers: Encounter type: initial encounter Qualified Code(s): S09.93XA - Unspecified injury of face, initial encounter Fall Qualifiers: Encounter type: initial encounter Qualified Code(s): W19.XXXA - Unspecified fall, initial encounter Condition: Stable Disposition: HOME, SELF-CARE Additional Instructions: Today he was seen in the emergency department after a fall. We did obtain an x- ray of your facial bones, hand and ribs. You do have an old rib fracture that has healed but the x-ray did not reveal any new fracture or puncture of the lung. Your hand x-ray was negative for any fracture or dislocation. Your facial x-ray was negative. Please ice and elevate your right hand. Use Tylenol as needed for pain. Rib contusions can be extremely painful. Please use the incentive spirometer is given to you by the emergency department staff. Please return to the emergency department if you develop fever or chills, persistent cough, coughing up blood or shortness of breath, increasing pain, weakness lightheadedness or fainting. Please follow-up with your primary care physician for any new or worsening symptoms or return to the emergency department. Rib Contusion You have been diagnosed as having bruised ribs. It will usually take a few weeks for these injured ribs to heal. You should cough or take a deep breath at least every hour or two to prevent lung complications. You should not engage in any strenuous physical activity until released by your physician. The usual rule is "if it hurts, don't do it." Return if you develop any of the following: (1) Fever or chills. (2) Persistent cough, coughing up blood, or shortness of breath. (3) Increasing pain. (4) Weakness, lightheadedness, or fainting. Contusion Your injury has resulted in a contusion -- a crushing of the deep tissues. No injury to important structures was detected during the physician's exam. Contusions vary in the amount of pain they cause, and in the length of time required for healing. Typically, the area will become bruised, and will remain painful to touch for two or three weeks. However, most patients are back to working and playing within a few days. After the initial period of rest and cold-packs, your symptoms (together with the doctor's recommendations) will determine how rapidly you can get back to full activity. Usually this means "do what feels okay, but don't do things that hurt." If re-examination was recommended, it's important to follow up as instructed. Call the doctor or return any time if pain increases, if swelling becomes severe, if you develop numbness or weakness in an injured extremity, or if any other alarming symptoms occur. Head Injury Contact your doctor or go to the hospital if any of the following things occur: Persistent or projectile vomiting, a seizure, confusion, unequal pupil size, difficulty in arousing the patient, worsening or continued headache, or failure to improve as expected. Head Injury Precautions At this point, there is no evidence that your head injury is serious. Observation is necessary, however. Take only clear liquids for the first few hours, unless told otherwise by the doctor. If no pain medication was prescribed, you may take acetaminophen according to the directions on the bottle. Do not take any medication that may alter your level of alertness (unless you've discussed it with the doctor first). Limit activity for the first 24 hours. Bed rest is best. During the first 24 hours, check to see approximately every two to three hours that the patient is easily arousable, responds normally, and can perform common tasks such as walking without difficulty. Contact your doctor or go to the hospital if any of the following things occur: Persistent vomiting, difficulty in arousing the patient, worsening or continued headache, or failure to improve as expected. Head injuries can cause symptoms that persist for a few days or even a few weeks. Referrals: MARGARITA ENCARNACION NP [Primary Care Provider] - Follow up as needed
[2019-08-11 13:58] VITALS: BP 145/59
== END 2019-08-11 13:55 | disposition home or self-care (01) ==
LOC: ER 10:15
DX: S20.211A Contusion of right front wall of thorax, initial encounter (principal); S09.93XA Unspecified injury of face, initial encounter; S63.91XA Sprain of unspecified part of right wrist and hand, initial encounter; M79.641 Pain in right hand; W19.XXXA Unspecified fall, initial encounter; I48.91 Unspecified atrial fibrillation; Z90.49 Acquired absence of other specified parts of digestive tract; Z96.652 Presence of left artificial knee joint
CPT/HCPCS: 70150; 99283

== ENCOUNTER 2019-09-30 20:20 | Inpatient (IN) | payer BC, MEDICARE ==
--- NOTE | 2019-09-30 22:49 | ER Document Report ---
ED Medical Screen (RME) - General Chief Complaint: Abdominal Pain Stated Complaint: ABDOMINAL PAIN Time Seen by Provider: 09/30/19 22:45 Primary Care Provider: MARGARITA RAMIREZ NP [Primary Care Provider] - Follow up as needed Mode of Arrival: Ambulatory Information source: Patient Notes: Patient is a 69-year-old female presenting to the emergency department chief com plaint of mid abdominal pain that began yesterday. Patient reports feels like a fullness or a tightness in the center of her abdomen. She reports accompanying nausea but denies any vomiting or diarrhea. Reports normal bowel movement yesterday. She does report history of Leigh fundoplication, cholecystectomy, tubal ligation and a bowel obstruction that required surgical repair. Patient denies any fever, nausea, vomiting, diarrhea. Exam: Tenderness with palpation of the mid abdomen. No guarding no rebound. I have greeted and performed a rapid initial assessment of this patient. A comprehensive ED assessment and evaluation of the patient, analysis of test results and completion of the medical decision making process will be conducted by additional ED providers. I have specifically instructed the patient or family members with the patient to immediately return to any nursing staff should anything change in the patient's condition or with their chief complaint. This medical record was dictated with voice recognizing software. There may be grammatical, syntax errors that are unintended. TRAVEL OUTSIDE OF THE [place] IN LAST 30 DAYS: No - Related Data Allergies/Adverse Reactions: doxycycline [Doxycycline] Allergy (Severe, Verified 09/30/19 22:42) Past Medical History - Past Medical History Cardiac Medical History: Reports: Hx Atrial Fibrillation - diltiazem Denies: Hx Coronary Artery Disease, Hx Heart Attack, Hx Hypertension Pulmonary Medical History: Reports: Hx Sleep Apnea Denies: Hx Asthma, Hx Bronchitis, Hx COPD, Hx Pneumonia Neurological Medical History: Denies: Hx Cerebrovascular Accident, Hx Seizures Renal/ Medical History: Denies: Hx Peritoneal Dialysis GI Medical History: Reports: Hx Gastroesophageal Reflux Disease, Hx Hiatal Hernia - hx of repair, takes nexium. Denies: Hx Hepatitis, Hx Ulcer Musculoskeltal Medical History: Reports Hx Arthritis - mobic prn Infectious Medical History: Denies: Hx Hepatitis Past Surgical History: Reports: Hx Cholecystectomy, Hx Orthopedic Surgery - left knee replacement, Other - open Leigh fundoplication Ex Lap for SBO. Denies: Hx Mastectomy, Hx Open Heart Surgery, Hx Pacemaker - Immunizations Hx Diphtheria, Pertussis, Tetanus Vaccination: Yes Physical Exam - Vital signs Vitals: Temp Resp Pulse Ox 98.5 F 20 95 09/30/19 20:20 09/30/19 20:20 09/30/19 20:20 Course - Vital Signs Vital signs: Temp Pulse Resp BP Pulse Ox 98.5 F 73 20 136/66 H 95 09/30/19 20:34 09/30/19 20:34 09/30/19 20:34 09/30/19 20:34 09/30/19 20:34 Doctor's Discharge - Discharge Referrals: MARGARITA RAMIREZ NP [Primary Care Provider] - Follow up as needed
--- NOTE | 2019-09-30 23:32 | RADIOLOGY REPORT (SQ) ---
EXAM DESCRIPTION: XR ABDOMEN 1 VIEW (KUB) COMPLETED DATE/TME: 09/30/2019 22:48 CLINICAL HISTORY: 69 years, Female, mid-abd pain hx of obstruction COMPARISON: None. NUMBER OF VIEWS: 2 TECHNIQUE: AP abdomen LIMITATIONS: None. FINDINGS: The bowel gas pattern is nonspecific. However, evidence of prior abdominal wall hernia repair. Mildly dilated air-filled loop of small bowel in the midabdomen with maximal diameter 4.6 cm. A few nondilated small bowel air-fluid levels. No free air. IMPRESSION: A few mildly prominent air-filled loops of small bowel with air-fluid levels likely reflect ileus. Partial or incomplete obstruction is not excluded entirely copyright 2011 [employer]- All Rights Reserved
[2019-10-01 00:05] LABS: ABSOLUTE BASOPHILS # (AUTO) 0.1 10^3/uL (0.0-0.2); ABSOLUTE LYMPHOCYTES (AUTO) 2.2 10^3/uL (0.5-4.7); ABSOLUTE MONOCYTES (AUTO) 0.6 10^3/uL (0.1-1.4); BASOPHILS % (AUTO) 0.7 % (0-2); EOSINOPHILS % (AUTO) 0.4 % (0-6); HEMATOCRIT 45.7 % (36.0-47.0); HEMOGLOBIN 15.3 g/dL (12.0-15.5); LYMPHOCYTES % (AUTO) 22.1 % (13-45); MEAN CORPUSCULAR HEMOGLOBIN 30.7 pg (27.0-33.4); MEAN CORPUSCULAR HGB CONC 33.5 g/dL (32.0-36.0); MEAN CORPUSCULAR VOLUME 92 fl (80-97); MONOCYTES % (AUTO) 5.6 % (3-13); PLATELET COUNT 260 10^3/uL (150-450); RED BLOOD COUNT 4.99 10^6/uL (3.72-5.28); RED CELL DISTRIBUTION WIDTH 13.4 % (11.5-14.0); SEGMENTED NEUTROPHILS % (AUTO) 71.2 % (42-78); TOTAL CELLS COUNTED % (AUTO) 100 %; WHITE BLOOD COUNT 9.8 10^3/uL (4.0-10.5)
[2019-10-01 00:06] LABS: APPEARANCE,URINE CLEAR; BILIRUBIN,URINE NEGATIVE (NEGATIVE); COLOR,URINE STRAW; GLUCOSE, URINE NEGATIVE (NEGATIVE); KETONES,URINE NEGATIVE (NEGATIVE); LEUKOCYTE ESTERASE,URINE NEGATIVE (NEGATIVE); NITRITE,URINE NEGATIVE (NEGATIVE); PROTEIN,URINE NEGATIVE (NEGATIVE); URINE SPECIFIC GRAVITY 1.002; UROBILINOGEN,URINE NEGATIVE mg/dL (<2.0)
[2019-10-01 00:37] LABS: ALBUMIN 4.1 g/dL (3.5-5.0); ALKALINE PHOSPHATASE 78 U/L (38-126); ANION GAP 10 (5-19); ASPARTATE AMINO TRANSFERASE 20 U/L (14-36); BILIRUBIN,DIRECT 0.2 mg/dL (0.0-0.4); BILIRUBIN,TOTAL 0.9 mg/dL (0.2-1.3); BLOOD UREA NITROGEN 12 mg/dL (7-20); CALCIUM 10.3 mg/dL (8.4-10.2); CARBON DIOXIDE 27 mmol/L (22-30); CHLORIDE 99 mmol/L (98-107); GLUCOSE 114 mg/dL (75-110); POTASSIUM 4.2 mmol/L (3.6-5.0); TOTAL PROTEIN 7.2 g/dL (6.3-8.2)
[2019-10-01] MEDS ORDERED: MORPHINE SULFATE 10 MG/ML INJ IV ONE ×2 (01:49→04:53)
[2019-10-01] MEDS ORDERED: NORMAL SALINE 1000 ML 1,000 ML IV ONE (01:49)
[2019-10-01] MEDS ORDERED: ONDANSETRON HCL INJ/PF 4 MG/2 ML SDV IV ONE ×2 (01:49→04:53)
--- NOTE | 2019-10-01 01:49 | ER Document Report ---
ED GI/ - General Chief Complaint: Abdominal Pain Stated Complaint: ABDOMINAL PAIN Time Seen by Provider: 09/30/19 22:45 Mode of Arrival: Ambulatory Notes: Patient is a 69-year-old female that comes emergency department for chief complaint of mid abdominal pain that started yesterday, she states her abdomen started feeling very hard and tight, then started feeling sharp pain. She reported nausea but denies vomiting. She states she has not eaten anything today and does not feel hungry. She did have a bowel movement earlier today which was nonbloody and appeared normal, that was this morning. She denies fever/chills. Her medical history includes a bowel obstruction in 2017 that required a surgical repair at this hospital, she is also had a Niesen fundoplication, cholecystectomy, tubal ligation. TRAVEL OUTSIDE OF THE [place] IN LAST 30 DAYS: No - Related Data Allergies/Adverse Reactions: doxycycline [Doxycycline] Allergy (Severe, Verified 09/30/19 22:42) Past Medical History - General Information source: Patient - Social History Smoking Status: Former Smoker Frequency of alcohol use: None Drug Abuse: None Lives with: Family Family History: Reviewed & Not Pertinent Patient has suicidal ideation: No Patient has homicidal ideation: No - Past Medical History Cardiac Medical History: Reports: Hx Atrial Fibrillation - diltiazem Denies: Hx Coronary Artery Disease, Hx Heart Attack, Hx Hypertension Pulmonary Medical History: Reports: Hx Sleep Apnea Denies: Hx Asthma, Hx Bronchitis, Hx COPD, Hx Pneumonia Neurological Medical History: Denies: Hx Cerebrovascular Accident, Hx Seizures Renal/ Medical History: Denies: Hx Peritoneal Dialysis GI Medical History: Reports: Hx Gastroesophageal Reflux Disease, Hx Hiatal Hernia - hx of repair, takes nexium. Denies: Hx Hepatitis, Hx Ulcer Musculoskeletal Medical History: Reports Hx Arthritis - mobic prn Infectious Medical History: Denies: Hx Hepatitis Past Surgical History: Reports: Hx Cholecystectomy, Hx Orthopedic Surgery - left knee replacement, Other - open Leigh fundoplication Ex Lap for SBO. Denies: Hx Mastectomy, Hx Open Heart Surgery, Hx Pacemaker - Immunizations Hx Diphtheria, Pertussis, Tetanus Vaccination: Yes Hx Pneumococcal Vaccination: 10/23/12 Review of Systems - Review of Systems Constitutional: No symptoms reported EENT: No symptoms reported Cardiovascular: No symptoms reported Respiratory: No symptoms reported Gastrointestinal: See HPI Genitourinary: No symptoms reported Female Genitourinary: No symptoms reported Musculoskeletal: No symptoms reported Skin: No symptoms reported Hematologic/Lymphatic: No symptoms reported Neurological/Psychological: No symptoms reported Physical Exam - Vital signs Vitals: Temp Resp Pulse Ox 98.5 F 20 95 09/30/19 20:20 09/30/19 20:20 09/30/19 20:20 - Notes Notes: GENERAL: Alert, interacts well. No acute distress. HEAD: Normocephalic, atraumatic. EYES: Pupils equal, round, and reactive to light. Extraocular movements intact. ENT: Oral mucosa moist, tongue midline. Oropharynx unremarkable. Airway patent. NECK: Full range of motion. Supple. Trachea midline. LUNGS: Clear to auscultation bilaterally, no wheezes, rales, or rhonchi. No respiratory distress. HEART: Regular rate and rhythm. No murmur ABDOMEN: Slightly distended abdomen, mild generalized tenderness over the mid abdomen, slightly firm but no rigidity. There appears to be a ventral/umbilical hernia, minimal tenderness over this, no erythema or hardness over the hernia. Unremarkable otherwise. Soft bowel sounds present. EXTREMITIES: Moves all 4 extremities spontaneously. No edema, normal radial and dorsalis pedis pulses bilaterally. No cyanosis. BACK: no cervical, thoracic, lumbar midline tenderness. No saddle anesthesia, normal distal neurovascular exam. Moves all extremities in full range of motion. NEUROLOGICAL: Alert and oriented x3. Normal speech. Cranial nerves II through XII grossly intact. PSYCH: Normal affect, normal mood. SKIN: Warm, dry, normal turgor. No rashes or lesions noted. Course - Re-evaluation Re-evalutation: CBC, chemistry, urinalysis unremarkable, however patient's abdominal exam does show what appears to be an umbilical hernia with some tenderness surrounding t his, abdomen is slightly firm and slightly distended as well. However patient does not appear to be in significant distress, there is no hardness or erythema to the hernia, the hernia does not appear to be incarcerated. KUB showing possible obstructive findings, discussed with patient, recommendation was for CT of the abdomen and pelvis with oral and IV contrast. Patient very agreeable with this. CT showing probable at least partial small bowel obstruction with possibly the ventral hernia being the cause. Patient is already following with surgeon Dr. Knight, I called the motel operator, they are recommended that because this is Dr. Knight's patient he takes call for his own patients. I spoke with Dr. Knight, he recommends n.p.o., NG tube, IV fluids, PRN pain medication, admission to his service on the surgical floor. Discussed with patient, she states understanding and agreement with plan. - Vital Signs Vital signs: Temp Pulse Resp BP Pulse Ox 97.7 F 57 L 15 132/58 H 95 10/01/19 06:36 10/01/19 06:36 10/01/19 06:36 10/01/19 06:36 10/01/19 06:36 - Laboratory Result Diagrams: 09/30/19 23:52 09/30/19 23:52 Laboratory results interpreted by me: 09/30/19 09/30/19 23:52 23:52 Sodium 136.2 L Glucose 114 H Calcium 10.3 H Urine Blood SMALL H Discharge - Discharge Clinical Impression: Small bowel obstruction Ventral hernia Qualifiers: Obstruction and gangrene presence: without obstruction or gangrene Qualified Code(s): K43.9 - Ventral hernia without obstruction or gangrene Abdominal pain Qualifiers: Abdominal location: generalized Qualified Code(s): R10.84 - Generalized abdominal pain Condition: Stable Disposition: ADMITTED INPATIENT Admitting Provider: Dr. Knight Unit Admitted: Surgical Floor
--- NOTE | 2019-10-01 04:32 | RADIOLOGY REPORT (SQ) ---
CT abdomen and pelvis with contrast on 10/01/2019 at 3:52 AM CLINICAL INDICATION: Generalized abdominal pain, follow-up abnormal KUB, history of bowel obstruction TECHNIQUE: Multiple axial images are obtained throughout the abdomen and pelvis following the administration of IV and oral contrast. 100 mL of Omnipaque 350 contrast was a rate inserter intravenously. This exam was performed according to our departmental dose-optimization program, which includes automated exposure control, adjustment of the mA and/or kV according to patient size and/or use of iterative reconstruction technique. Total DLP is 2021.52 mGy*cm. COMPARISON: 08/08/2019 FINDINGS: Abdomen: There is minimal bibasilar atelectasis. There is a moderate-sized hiatal hernia. The patient is status post cholecystectomy. There is mild fatty infiltration of the liver. Bilateral renal cysts including left parapelvic renal cysts are noted. The solid abdominal organs are otherwise unremarkable. Vascular calcifications are noted. There is no abdominal adenopathy. There are dilated proximal and mid small bowel loops to the level of one of the patient's anterior abdominal wall hernias with transition to decompressed small bowel out of this hernia consistent with small bowel obstruction. The obstruction may be related to the hernia or an adhesion. Transition point is around axial image 50 of series 3. Recommend surgical consultation. The patient has had prior anterior abdominal wall hernia repair with multiple recurrent or residual midline hernias containing small bowel. There are at least three separate midline hernias in the abdomen and pelvis above and below the level of the umbilicus containing bowel. Pelvis: Very small amount of free fluid is noted in the pelvis. Pelvic organs appear unremarkable by CT. There is diverticulosis. Pelvic portion of the GI tract is otherwise unremarkable. Degenerative changes are noted in the spine. IMPRESSION: 1. At least partial small bowel obstruction related to one of the anterior abdominal wall hernias, it is unknown if the obstruction is related to an adhesion within or adjacent to the hernia versus the hernia itself. Recommend surgical consultation. 2. Multiple midline anterior abdominal wall hernias as above. 3. Moderate size hiatal hernia. 4. Diverticulosis.
[2019-10-01] MEDS ORDERED: LIDOCAINE 1% INJ-PF (10 MG/ML) 30 ML SDV NEB ONE (04:53)
[2019-10-01] MEDS ORDERED: NORMAL SALINE 1000 ML 1,000 ML IV PRN (04:54)
[2019-10-01] MEDS ORDERED: MORPHINE SULFATE 10 MG/ML INJ IV PRN (04:54)
[2019-10-01] MEDS ORDERED: LIDOCAINE 2% VISCOUS SOLN 20 ML UDCUP PO ONE (05:59)
[2019-10-01] MEDS: ONDANSETRON HCL INJ/PF 4 MG/2 ML SDV IV PRN ×2 (09:46→17:34)
[2019-10-01] MEDS: PANTOPRAZOLE SODIUM 40 MG VIAL IV SCH (09:46)
[2019-10-01] MEDS: KETOROLAC TROMETHAMINE INJ/PF 30 MG/1 ML SDV IV PRN ×2 (09:52→17:34)
[2019-10-01] MEDS ORDERED: NEOSTIGMINE METHYLSULFATE 10 MG/10 ML VIAL ONE (11:59)
[2019-10-01] MEDS ORDERED: DEXAMETHASONE SOD PHOSPHATE INJ 4 MG/1 ML VIAL ONE (11:59)
[2019-10-01] MEDS ORDERED: PHENYLEPHRINE HCL INJ/PF 10 MG/1 ML SDV ONE (11:59)
[2019-10-01] MEDS ORDERED: SUCCINYLCHOLINE CHLORIDE INJ 200 MG/10 ML VIAL ONE (11:59)
--- NOTE | 2019-10-01 13:21 | PDOC H&P ---
History of Present Illness Admission Date/PCP: 10/01/19 05:05 MARGARITA RAMIREZ NP Patient complains of: Nausea and abdominal pain History of Present Illness: BRIDGETTE BOONE is a 69 year old female with a history of a recurrent ventral hernia. The patient has seen me in the office, as an outpatient. She is obese. Previously, she was minimally symptomatic. She reports a 2-day history of cramping abdominal pain, distention, and nausea. Patient has a history of Leigh fundoplication and "cannot vomit". Her pain progressed, and she presented to the emergency department for evaluation. At worst, the pain was 8 out of 10. It was sharp, cramping, with waxing and waning. Pain does not radiate. Nothing makes it better or worse. A CT scan was performed in the emergency department demonstrating a small bowel obstruction due to hernia. Past Medical History Cardiac Medical History: Reports: Atrial Fibrillation - diltiazem Denies: Coronary Artery Disease, Myocardial Infarction, Hypertension Pulmonary Medical History: Reports: Sleep Apnea Denies: Asthma, Bronchitis, Chronic Obstructive Pulmonary Disease (COPD), Pneumonia Neurological Medical History: Denies: Seizures GI Medical History: Reports: Gastroesophageal Reflux Disease, Hiatal Hernia - hx of repair, takes nexium Denies: Hepatitis Musculoskeltal Medical History: Reports: Arthritis - mobic prn Hematology: Denies: Anemia, Sickle Cell Disease Past Surgical History Past Surgical History: Reports: Cholecystectomy, Orthopedic Surgery - left knee replacement, Other - open Leigh fundoplication Ex Lap for SBO Denies: Amputation, Mastectomy, Pacemaker Social History Lives with: Family Smoking Status: Former Smoker Electronic Cigarette use?: No Frequency of Alcohol Use: None Hx Recreational Drug Use: No Drugs: None Hx Prescription Drug Abuse: No Family History Family History: Reviewed & Not Pertinent Parental Family History Reviewed: Yes Children Family History Reviewed: Yes Sibling(s) Family History Reviewed.: Yes Medication/Allergy Home Medications: Cyanocobalamin (Vitamin B-12) [Vitamin B-12 1000 mcg Tablet] 500 mcg PO Q2D 04/12/18 Diltiazem HCl [Cartia Xt] 180 mg PO QHS 04/12/18 Ergocalciferol (Vitamin D2) [Vitamin D2] 4,000 unit PO DAILY 04/12/18 Esomeprazole Magnesium [Nexium] 40 mg PO DAILY 04/12/18 Fluticasone Propionate [Flonase Nasal [place] 50 Mcg/[place] 16 gm] 2 sprays NASL DAILY 04/12/18 Rizatriptan Benzoate [Maxalt] 10 mg PO ASDIR PRN 04/12/18 Allergies/Adverse Reactions: doxycycline [Doxycycline] Allergy (Severe, Verified 09/30/19 22:42) Review of Systems Constitutional: ABSENT: anorexia, chills, fatigue Eyes: ABSENT: visual disturbances Ears: ABSENT: hearing changes Nose, Mouth, and Throat: ABSENT: sore throat Cardiovascular: ABSENT: chest pain Respiratory: ABSENT: dyspnea Gastrointestinal: PRESENT: abdominal pain, bloating, nausea. ABSENT: vomiting Genitourinary: ABSENT: dysuria Musculoskeletal: ABSENT: back pain Integumentary: ABSENT: pruritus, rash Neurological: ABSENT: confusion, convulsions, dizziness Psychiatric: ABSENT: anxiety, depression Endocrine: ABSENT: cold intolerance, heat intolerance Hematologic/Lymphatic: ABSENT: easy bleeding, easy bruising Physical Exam Vital Signs: Temp Pulse Resp BP Pulse Ox 97.5 F 57 L 16 131/61 H 91 L 10/01/19 07:50 10/01/19 07:50 10/01/19 07:50 10/01/19 07:50 10/01/19 07:50 Intake & Output 09/30/19 10/01/19 10/02/19 06:59 06:59 06:59 Intake Total 1000 Balance 1000 Weight 112.4 kg General appearance: PRESENT: no acute distress, cooperative, morbidly obese Head exam: PRESENT: atraumatic, normocephalic Eye exam: PRESENT: EOMI, PERRLA. ABSENT: scleral icterus Mouth exam: PRESENT: moist Neck exam: ABSENT: meningismus, tenderness, thyromegaly, tracheal deviation, tracheostomy Respiratory exam: PRESENT: clear to auscultation gilmar, unlabored. ABSENT: chest wall tenderness, tachypnea, wheezes Cardiovascular exam: PRESENT: RRR Pulses: PRESENT: normal radial pulses GI/Abdominal exam: PRESENT: hernia, soft, tenderness - mild, midline. ABSENT: guarding, rigid Rectal exam: PRESENT: deferred Extremities exam: ABSENT: clubbing Musculoskeletal exam: ABSENT: deformity Neurological exam: PRESENT: alert, awake, oriented to person, oriented to place, oriented to time, oriented to situation, CN II-XII grossly intact Psychiatric exam: ABSENT: agitated, anxious, depressed Focused psych exam: ABSENT: delusional Skin exam: ABSENT: cyanosis, erythema, jaundice Results Laboratory Results: 09/30/19 23:52 09/30/19 23:52 09/30/19 09/30/19 09/30/19 23:52 23:52 23:52 WBC 9.8 RBC 4.99 Hgb 15.3 Hct 45.7 MCV 92 MCH 30.7 MCHC 33.5 RDW 13.4 Plt Count 260 Seg Neutrophils % 71.2 Sodium 136.2 L Potassium 4.2 Chloride 99 Carbon Dioxide 27 Anion Gap 10 BUN 12 Creatinine 0.87 Est GFR ( Amer) > 60 Glucose 114 H Calcium 10.3 H Total Bilirubin 0.9 AST 20 Alkaline Phosphatase 78 Total Protein 7.2 Albumin 4.1 Lipase 38.3 Urine Color STRAW Urine Appearance CLEAR Urine pH 6.0 Ur Specific Moran 1.002 Urine Protein NEGATIVE Urine Glucose (UA) NEGATIVE Urine Ketones NEGATIVE Urine Blood SMALL H Urine Nitrite NEGATIVE Ur Leukocyte Esterase NEGATIVE Urine WBC (Auto) 1 Urine RBC (Auto) 1 Impressions: KUB X-Ray 09/30/19 22:48 IMPRESSION: A few mildly prominent air-filled loops of small bowel with air-fluid levels likely reflect ileus. Partial or incomplete obstruction is not excluded entirely copyright 2011 [employer]- All Rights Reserved Abdomen/Pelvis CT 10/01/19 00:00 IMPRESSION: 1. At least partial small bowel obstruction related to one of the anterior abdominal wall hernias, it is unknown if the obstruction is related to an adhesion within or adjacent to the hernia versus the hernia itself. Recommend surgical consultation. 2. Multiple midline anterior abdominal wall hernias as above. 3. Moderate size hiatal hernia. 4. Diverticulosis. Assessment & Plan - Diagnosis (2) Ventral hernia Qualifiers: Obstruction and gangrene presence: with obstruction but without gangrene Qualified Code(s): K43.6 - Other and unspecified ventral hernia with obstruction, without gangrene Is this a current diagnosis for this admission?: Yes - Plan Summary Plan Summary: This is a 69-year-old female with an incarcerated, recurrent ventral hernia. She also has a bowel obstruction due to the ventral hernia. I have reviewed the patient's CT scan images and report. Her lab work is unremarkable. The ER att empted to place an NG tube, however this was unsuccessful. I do not believe the patient is exhibiting signs of peritonitis. Plan for operative intervention tomorrow. I would prefer a robotic and/or laparoscopic approach. Continue n.p.o. Continue pain medications. Risks/benefits discussed, informed consent obtained, and all questions answered.
[2019-10-01] MEDS: NORMAL SALINE 1000 ML 1,000 ML IV PRN (20:14)
[2019-10-02] MEDS: NORMAL SALINE 1000 ML 1,000 ML IV PRN (06:32)
[2019-10-02] MEDS ORDERED: HYDROMORPHONE HCL INJ/PF 2 MG/ML AMPULE ONE (07:07)
[2019-10-02] MEDS ORDERED: MIDAZOLAM 2 MG/2 ML INJ ONE (07:07)
[2019-10-02] MEDS ORDERED: FENTANYL CITRATE INJ/PF 100 MCG/2 ML AMPUL ONE ×2 (07:07→14:15)
[2019-10-02] MEDS ORDERED: PROPOFOL INJ 200 MG/20 ML VIAL IV ONE (07:07)
[2019-10-02 07:08] LABS: ABSOLUTE EOSINOPHILS # (AUTO) 0.1 10^3/uL (0.0-0.6); ABSOLUTE LYMPHOCYTES (AUTO) 1.7 10^3/uL (0.5-4.7); ABSOLUTE MONOCYTES (AUTO) 0.5 10^3/uL (0.1-1.4); ABSOLUTE NEUT (AUTO) 5.3 10^3/uL (1.7-8.2); BASOPHILS % (AUTO) 0.4 % (0-2); EOSINOPHILS % (AUTO) 1.7 % (0-6); HEMATOCRIT 39.8 % (36.0-47.0); HEMOGLOBIN 13.4 g/dL (12.0-15.5); LYMPHOCYTES % (AUTO) 22.2 % (13-45); MEAN CORPUSCULAR HEMOGLOBIN 30.8 pg (27.0-33.4); MEAN CORPUSCULAR HGB CONC 33.6 g/dL (32.0-36.0); MEAN CORPUSCULAR VOLUME 92 fl (80-97); MONOCYTES % (AUTO) 6.3 % (3-13); PLATELET COUNT 173 10^3/uL (150-450); RED BLOOD COUNT 4.34 10^6/uL (3.72-5.28); RED CELL DISTRIBUTION WIDTH 13.2 % (11.5-14.0); SEGMENTED NEUTROPHILS % (AUTO) 69.4 % (42-78); TOTAL CELLS COUNTED % (AUTO) 100 %; WHITE BLOOD COUNT 7.7 10^3/uL (4.0-10.5)
[2019-10-02 07:15] LABS: ANION GAP 8 (5-19); BLOOD UREA NITROGEN 12 mg/dL (7-20); CALCIUM 8.8 mg/dL (8.4-10.2); CARBON DIOXIDE 24 mmol/L (22-30); CHLORIDE 107 mmol/L (98-107); GLUCOSE 83 mg/dL (75-110); POTASSIUM 3.9 mmol/L (3.6-5.0)
--- NOTE | 2019-10-02 08:41 | PDOC PROGRESS REPORT ---
Subjective Progress Note for:: 10/02/19 Subjective:: 69-year-old female with recurrent ventral hernia and bowel obstruction. She continues to complain of nausea and abdominal pain. Denies CP, SOB, F/C, dizziness, orthostasis, headache. Reason For Visit: VENTRAL HERNIA,ABDOMINAL PAIN,SMALL BOWEL Physical Exam Vital Signs: Temp Pulse Resp BP Pulse Ox 97.6 F 51 L 18 119/50 L 98 10/02/19 03:33 10/02/19 03:33 10/02/19 03:33 10/02/19 03:33 10/02/19 03:33 Intake & Output 10/01/19 10/02/19 10/03/19 06:59 06:59 06:59 Intake Total 1000 1000 Balance 1000 1000 Weight 112.4 kg 112.4 kg Exam: General appearance: PRESENT: no acute distress, cooperative, morbidly obese Head exam: PRESENT: atraumatic, normocephalic Eye exam: PRESENT: EOMI, PERRLA. ABSENT: scleral icterus Mouth exam: PRESENT: moist Neck exam: ABSENT: meningismus, tenderness, thyromegaly, tracheal deviation, tracheostomy Respiratory exam: PRESENT: clear to auscultation gilmar, unlabored. ABSENT: chest wall tenderness, tachypnea, wheezes Cardiovascular exam: PRESENT: RRR Pulses: PRESENT: normal radial pulses GI/Abdominal exam: PRESENT: hernia, soft, tenderness - mild, midline. ABSENT: guarding, rigid Rectal exam: PRESENT: deferred Extremities exam: ABSENT: clubbing Musculoskeletal exam: ABSENT: deformity Neurological exam: PRESENT: alert, awake, oriented to person, oriented to place, oriented to time, oriented to situation, CN II-XII grossly intact Psychiatric exam: ABSENT: agitated, anxious, depressed Focused psych exam: ABSENT: delusional Skin exam: ABSENT: cyanosis, erythema, jaundice Results Laboratory Results: 10/02/19 06:08 10/02/19 06:08 10/02/19 10/02/19 06:08 06:08 WBC 7.7 RBC 4.34 Hgb 13.4 Hct 39.8 MCV 92 MCH 30.8 MCHC 33.6 RDW 13.2 Plt Count 173 Seg Neutrophils % 69.4 Sodium 139.2 Potassium 3.9 Chloride 107 Carbon Dioxide 24 Anion Gap 8 BUN 12 Creatinine 0.75 Est GFR ( Amer) > 60 Glucose 83 Calcium 8.8 Impressions: KUB X-Ray 09/30/19 22:48 IMPRESSION: A few mildly prominent air-filled loops of small bowel with air-fluid levels likely reflect ileus. Partial or incomplete obstruction is not excluded entirely copyright 2011 [employer]- All Rights Reserved Abdomen/Pelvis CT 10/01/19 00:00 IMPRESSION: 1. At least partial small bowel obstruction related to one of the anterior abdominal wall hernias, it is unknown if the obstruction is related to an adhesion within or adjacent to the hernia versus the hernia itself. Recommend surgical consultation. 2. Multiple midline anterior abdominal wall hernias as above. 3. Moderate size hiatal hernia. 4. Diverticulosis. Assessment & Plan - Diagnosis (2) Ventral hernia Qualifiers: Obstruction and gangrene presence: with obstruction but without gangrene Qualified Code(s): K43.6 - Other and unspecified ventral hernia with obstruction, without gangrene Is this a current diagnosis for this admission?: Yes - Time Time Spent with patient: Less than 15 minutes - Plan Summary Plan Summary: 69 y/o F with an SBO due to a recurrent ventral hernia. Plane for robotic/laparoscopic exploration today with hernia repair. Risks/benefits discussed, informed consent obtained, and all questions answered.
[2019-10-02] MEDS ORDERED: BUPIVACAINE HCL 0.25 % INJ/PF (2.5 MG/1 ML) 30 ML VIAL ONE (09:07)
[2019-10-02] MEDS ORDERED: CEFAZOLIN INJ 1 GM VIAL ONE (09:23)
[2019-10-02] MEDS ORDERED: ACETAMINOPHEN 1,000 MG/100 ML RTUPB IV ONE ×2 (09:45→09:59)
[2019-10-02] MEDS ORDERED: FENTANYL CITRATE INJ/PF 100 MCG/2 ML AMPUL IV PRN ×5 (10:18→14:52)
[2019-10-02] MEDS ORDERED: MORPHINE SULFATE 10 MG/ML INJ IV PRN (10:18)
[2019-10-02] MEDS ORDERED: MEPERIDINE HCL/PF INJ 25 MG/1 ML DISP.SYRIN IV PRN ×2 (10:18→14:52)
[2019-10-02] MEDS ORDERED: DIPHENHYDRAMINE HCL 50 MG/ML VIAL IV PRN ×2 (10:18→14:52)
[2019-10-02] MEDS ORDERED: PROMETHAZINE HCL INJ 25 MG/1 ML VIAL IV PRN ×2 (10:18→14:52)
[2019-10-02] MEDS ORDERED: IBUPROFEN 800 MG in NORMAL SALINE 250 ML IV ONE (10:30)
[2019-10-02] MEDS: FENTANYL CITRATE INJ/PF 100 MCG/2 ML AMPUL IV PRN ×2 (14:21→14:44)
[2019-10-02] MEDS ORDERED: OXYCODONE-ACETAMINOPHEN 5-325 MG TABLET PO PRN (14:52)
[2019-10-02] MEDS: MORPHINE SULFATE 10 MG/ML INJ IV PRN ×2 (16:18→21:06)
[2019-10-02] MEDS: ONDANSETRON HCL INJ/PF 4 MG/2 ML SDV IV PRN ×2 (16:23→21:07)
[2019-10-02] MEDS: KETOROLAC TROMETHAMINE INJ/PF 30 MG/1 ML SDV IV PRN (19:49)
--- NOTE | 2019-10-02 21:37 | Operative Report ---
Nonrecallable Operative Report DATE OF SURGERY: 10/02/19 PREOPERATIVE DIAGNOSIS: 1. Small bowel obstruction. 2. Recurrent ventral hernia. POSTOPERATIVE DIAGNOSIS: Same as above. OPERATION: 1. Robot-assisted laparoscopic lysis of adhesions for greater than 1 hour. 2. Robot-assisted laparoscopic recurrent ventral hernia repair with mesh. SURGEON: SHASHI HERNANDEZ ANESTHESIA: GA TISSUE REMOVED OR ALTERED: None COMPLICATIONS: None apparent ESTIMATED BLOOD LOSS: Minimal PROCEDURE: Drains/implants: 25 x [address] hernia mesh. Procedure in detail: After informed consent was obtained, the patient was brought to the operating room and laid in the supine position. The area of the abdomen was prepped and draped in a normal sterile fashion. An incision was created in the left upper quadrant. The 5 mm trocar and 5 mm camera were then inserted into the abdominal cavity, using the Optiview technique. Gas insufflation was attached, and pneumoperitoneum was achieved. The left lower quadrant 8 mm trocar was then placed under direct laparoscopic visualization. A left lateral 12 mm trocar was also placed under direct laparoscopic visualization. The left upper quadrant 5 mm trocar was then replaced with an 8 mm robotic trocar. The robot was then brought over the patient and docked appropriately. I then assumed my position at the surgeon's console. Attention was then turned to dissection of the small bowel away from the hernia defect. With great care, the small bowel was gently freed using sharp dissection only. Lysis of adhesions was undertaken freeing small bowel from small bowel, and small bowel from anterior abdominal wall. Once all of the adhesions were lysed, the defect was measured. It was felt necessary to use a 25 x 20 cm hernia mesh to adequately cover the defect. The mesh was then placed into the abdominal cavity. Next attention was turned to closure of the ventral hernia defect. There was a pre-existing mesh in the abdominal cavity. It appeared to be [place]. This was not removed, as the majority of the mesh was still in place. The inferior portion of the mesh appears to have been cut from a previous operation. The inferior portion of the mesh had been split open, however it was densely adherent to the anterior abdominal wall. The hernia defect was closed using overlapping number 1V lock suture in simple running fashion. This incorporated a portion of the existing mesh. Once the defect was closed, the 25 x [address] hernia mesh was apposed to the anterior abdominal wall using the EPS. The mesh was then sutured circumferentially to the anterior abdominal wall using 2-0 nonabsorbable V lock suture. Once the mesh was adequately adhered to the abdominal wall, the robot was undocked, and I scrubbed back into the case. The 8 mm trochars were closed using the Jeevan-Kira device and 0 Vicryl suture in simple interrupted fashion. The 12 mm trocar site was closed using 0 Vicryl suture in [id number] fashion with the aid of the Jeevan-Kira device. The skin was then closed using 4-0 Vicryl Rapide suture in subcuticular fashion. Dressings were placed, and the procedure was concluded. All sponge, instrument, and needle counts were correct x2. Condition: Stable.
[2019-10-02] MEDS: PANTOPRAZOLE SODIUM 40 MG VIAL IV SCH (22:34)
[2019-10-03] MEDS: ONDANSETRON HCL INJ/PF 4 MG/2 ML SDV IV PRN ×2 (01:28→05:30)
[2019-10-03] MEDS: MORPHINE SULFATE 10 MG/ML INJ IV PRN ×5 (01:29→19:54)
[2019-10-03 07:11] LABS: ANION GAP 9 (5-19); BLOOD UREA NITROGEN 15 mg/dL (7-20); CALCIUM 8.8 mg/dL (8.4-10.2); CARBON DIOXIDE 25 mmol/L (22-30); CHLORIDE 103 mmol/L (98-107); GLUCOSE 100 mg/dL (75-110); POTASSIUM 4.2 mmol/L (3.6-5.0)
--- NOTE | 2019-10-03 08:25 | PDOC PROGRESS REPORT ---
Subjective Progress Note for:: 10/03/19 Reason For Visit: VENTRAL HERNIA,ABDOMINAL PAIN,SMALL BOWEL Physical Exam Vital Signs: Temp Pulse Resp BP Pulse Ox 97.9 F 59 L 20 159/60 H 97 10/03/19 03:47 10/03/19 03:47 10/03/19 03:47 10/03/19 03:47 10/03/19 03:47 Intake & Output 10/02/19 10/03/19 10/04/19 06:59 06:59 06:59 Intake Total 1000 1000 Output Total 50 Balance 1000 950 Weight 115.2 kg 118.5 kg Results Laboratory Results: 10/02/19 06:08 10/03/19 06:17 10/03/19 06:17 Sodium 137.3 Potassium 4.2 Chloride 103 Carbon Dioxide 25 Anion Gap 9 BUN 15 Creatinine 0.73 Est GFR ( Amer) > 60 Glucose 100 Calcium 8.8 Impressions: KUB X-Ray 09/30/19 22:48 IMPRESSION: A few mildly prominent air-filled loops of small bowel with air-fluid levels likely reflect ileus. Partial or incomplete obstruction is not excluded entirely copyright [employer]- All Rights Reserved Abdomen/Pelvis CT 10/01/19 00:00 IMPRESSION: 1. At least partial small bowel obstruction related to one of the anterior abdominal wall hernias, it is unknown if the obstruction is related to an adhesion within or adjacent to the hernia versus the hernia itself. Recommend surgical consultation. 2. Multiple midline anterior abdominal wall hernias as above. 3. Moderate size hiatal hernia. 4. Diverticulosis. Assessment & Plan - Diagnosis (2) Ventral hernia Qualifiers: Obstruction and gangrene presence: with obstruction but without gangrene Qualified Code(s): K43.6 - Other and unspecified ventral hernia with obstruction, without gangrene Is this a current diagnosis for this admission?: Yes - Time Time Spent with patient: Less than 15 minutes - Plan Summary Plan Summary: This is a 69-year-old female status post robot-assisted laparoscopic lysis of adhesions with repair of a recurrent, incarcerated ventral hernia. She is doing reasonably well today. She denies nausea or vomiting. She also denies flatus. Her incisions appear clean, dry, intact. There is some bruising present on the abdominal wall, but nothing excessive. Out of bed today. Aggressive pulmonary toilet. Continue with ice chips and popsicles until bowel function returns. Continue with current pain medication regimen.
[2019-10-03] MEDS: PANTOPRAZOLE SODIUM 40 MG VIAL IV SCH (09:43)
[2019-10-03] MEDS: KETOROLAC TROMETHAMINE INJ/PF 30 MG/1 ML SDV IV PRN (16:01)
[2019-10-03] MEDS: NORMAL SALINE 1000 ML 1,000 ML IV PRN (19:55)
[2019-10-04] MEDS: MORPHINE SULFATE 10 MG/ML INJ IV PRN ×4 (03:24→19:40)
[2019-10-04] MEDS: NORMAL SALINE 1000 ML 1,000 ML IV PRN (04:08)
[2019-10-04 05:22] LABS: ANION GAP 6 (5-19); BLOOD UREA NITROGEN 18 mg/dL (7-20); CALCIUM 8.6 mg/dL (8.4-10.2); CARBON DIOXIDE 26 mmol/L (22-30); CHLORIDE 104 mmol/L (98-107); GLUCOSE 101 mg/dL (75-110); POTASSIUM 3.9 mmol/L (3.6-5.0)
[2019-10-04] MEDS: PANTOPRAZOLE SODIUM 40 MG VIAL IV SCH (09:33)
[2019-10-04] MEDS: ONDANSETRON HCL INJ/PF 4 MG/2 ML SDV IV PRN (09:40)
--- NOTE | 2019-10-04 15:47 | PDOC PROGRESS REPORT ---
Subjective Progress Note for:: 10/04/19 Reason For Visit: VENTRAL HERNIA,ABDOMINAL PAIN,SMALL BOWEL Physical Exam Vital Signs: Temp Pulse Resp BP Pulse Ox 99.2 F 73 18 139/59 H 95 10/04/19 14:59 10/04/19 14:59 10/04/19 14:59 10/04/19 14:59 10/04/19 14:59 Intake & Output 10/03/19 10/04/19 10/05/19 06:59 06:59 06:59 Intake Total 2000 1720 200 Output Total 50 0 Balance 1950 1720 200 Weight 118.5 kg 120.5 kg 120.5 kg Results Laboratory Results: 10/02/19 06:08 10/04/19 04:18 10/04/19 04:18 Sodium 136.3 L Potassium 3.9 Chloride 104 Carbon Dioxide 26 Anion Gap 6 BUN 18 Creatinine 0.76 Est GFR ( Amer) > 60 Glucose 101 Calcium 8.6 Impressions: KUB X-Ray 09/30/19 22:48 IMPRESSION: A few mildly prominent air-filled loops of small bowel with air-fluid levels likely reflect ileus. Partial or incomplete obstruction is not excluded entirely copyright 2011 [employer]- All Rights Reserved Abdomen/Pelvis CT 10/01/19 00:00 IMPRESSION: 1. At least partial small bowel obstruction related to one of the anterior abdominal wall hernias, it is unknown if the obstruction is related to an adhesion within or adjacent to the hernia versus the hernia itself. Recommend surgical consultation. 2. Multiple midline anterior abdominal wall hernias as above. 3. Moderate size hiatal hernia. 4. Diverticulosis. Assessment & Plan - Diagnosis (2) Ventral hernia Qualifiers: Obstruction and gangrene presence: with obstruction but without gangrene Qualified Code(s): K43.6 - Other and unspecified ventral hernia with obstru ction, without gangrene Is this a current diagnosis for this admission?: Yes - Time Time Spent with patient: Less than 15 minutes - Plan Summary Plan Summary: This is a 69-year-old female status post robot-assisted laparoscopic lysis of adhesions with repair of a recurrent, incarcerated ventral hernia. She is doing reasonably well today. She denies nausea or vomiting. She also denies flatus. Her incisions appear clean, dry, intact. She still denies flatus, but feels like "things are moving inside". Out of bed today. Aggressive pulmonary toilet. Continue with ice chips and popsicles until bowel function returns. Continue with current pain medication regimen.
[2019-10-05] MEDS: MORPHINE SULFATE 10 MG/ML INJ IV PRN ×2 (00:18→09:09)
[2019-10-05] MEDS: NORMAL SALINE 1000 ML 1,000 ML IV PRN ×2 (00:18→09:19)
[2019-10-05] MEDS: PANTOPRAZOLE SODIUM 40 MG VIAL IV SCH (09:08)
[2019-10-05] MEDS: ONDANSETRON HCL INJ/PF 4 MG/2 ML SDV IV PRN (09:08)
[2019-10-05] MEDS: HYDROCODONE/ACETAMINOPHEN 10-325 MG TABLET PO PRN ×2 (12:11→22:09)
[2019-10-05] MEDS: IBUPROFEN 800 MG TABLET PO SCH ×3 (12:11→22:09)
[2019-10-06] MEDS: IBUPROFEN 800 MG TABLET PO SCH ×2 (06:06→13:39)
[2019-10-06] MEDS: HYDROCODONE/ACETAMINOPHEN 10-325 MG TABLET PO PRN (09:57)
[2019-10-06] MEDS: PANTOPRAZOLE SODIUM 40 MG VIAL IV SCH (09:58)
--- NOTE | 2019-10-06 12:51 | PDOC DISCHARGE SUMMARY ---
General - Admit/Disc Date/PCP Admission Date/Primary Care Provider: 10/01/19 05:05 MARGARITA RAMIREZ NP Discharge Date: 10/06/19 - Discharge Diagnosis Final Diagnosis: Small bowel obstruction, incarcerated ventral hernia. - Assessment Summary: This is a 69-year-old female in the hospital with a small bowel obstruction due to her incarcerated, recurrent ventral hernia. Patient was taken to the floor in stable condition. An NG tube was attempted, however she was unable to tolerate it. The patient was taken to surgery, where robotic assisted lysis of adhesions and ventral hernia repair were accomplished. The patient was brought back to the floor in stable condition. Over the subsequent days, the patient began to feel better, and her pain improved. She began to pass flatus. A diet was started, which she tolerated well. By 10/06/2019, the patient was ambulating, tolerating a diet, passing flatus, and was comfortable taking oral pain medications. At this time it is felt that she has reached maximal hospital benefit, and is fit for discharge. - Additional Information Resuscitation Status: Full Code Discharge Diet: As Tolerated Discharge Activity: Balance Activity w/Rest, No Lifting Over 10 Pounds, No Lifting/Push/Pulling Referrals: MARGARITA RAMIREZ NP [Primary Care Provider] - Follow up as needed Home Medications: Cyanocobalamin (Vitamin B-12) [Vitamin B-12 1000 mcg Tablet] 500 mcg PO Q2D 04/12/18 Diltiazem HCl [Cartia Xt] 180 mg PO QHS 04/12/18 Ergocalciferol (Vitamin D2) [Vitamin D2] 4,000 unit PO DAILY 04/12/18 Esomeprazole Magnesium [Nexium] 40 mg PO DAILY 04/12/18 Fluticasone Propionate [Flonase Nasal [place] 50 Mcg/[place] 16 gm] 2 sprays NASL DAILY 04/12/18 Rizatriptan Benzoate [Maxalt] 10 mg PO ASDIR PRN 04/12/18 Additional Information: Discharge home. Diet as tolerated. Activity: No lifting greater than 10 pounds x 6 weeks. Follow-up with me in 7 to 10 days. [place] 10/325 mg p.o. every 6 hours as needed for pain. Ibuprofen 800 mg p.o. 3 times daily with meals. R esume all home medications as previously prescribed. Okay to shower. No tub baths or swimming pools x2 weeks. History of Present Illiness History of Present Illness: BRIDGETTE BOONE is a 69 year old female with a history of a recurrent ventral hernia. The patient has seen me in the office, as an outpatient. She is obese. Previously, she was minimally symptomatic. She reports a 2-day history of cramping abdominal pain, distention, and nausea. Patient has a history of Leigh fundoplication and "cannot vomit". Her pain progressed, and she presente d to the emergency department for evaluation. At worst, the pain was 8 out of 10. It was sharp, cramping, with waxing and waning. Pain does not radiate. Nothing makes it better or worse. A CT scan was performed in the emergency department demonstrating a small bowel obstruction due to hernia. Physical Exam Vital Signs: Temp Pulse Resp BP Pulse Ox 97.9 F 66 18 156/74 H 93 10/06/19 08:06 10/06/19 08:06 10/06/19 08:06 10/06/19 08:06 10/06/19 08:06 Intake & Output 10/05/19 10/06/19 10/07/19 06:59 06:59 06:59 Intake Total 1350 3310 Balance 1350 3310 Weight 121.2 kg 119.5 kg Results Laboratory Results: WBC 7.7 10^3/uL (4.0-10.5) 10/02/19 06:08 RBC 4.34 10^6/uL (3.72-5.28) 10/02/19 06:08 Hgb 13.4 g/dL (12.0-15.5) 10/02/19 06:08 Hct 39.8 % (36.0-47.0) 10/02/19 06:08 MCV 92 fl (80-97) 10/02/19 06:08 MCH 30.8 pg (27.0-33.4) 10/02/19 06:08 MCHC 33.6 g/dL (32.0-36.0) 10/02/19 06:08 RDW 13.2 % (11.5-14.0) 10/02/19 06:08 Plt Count 173 10^3/uL (150-450) 10/02/19 06:08 Lymph % (Auto) 22.2 % (13-45) 10/02/19 06:08 [place] % (Auto) 6.3 % (3-13) 10/02/19 06:08 Eos % (Auto) 1.7 % (0-6) 10/02/19 06:08 Baso % (Auto) 0.4 % (0-2) 10/02/19 06:08 Absolute Neuts (auto) 5.3 10^3/uL (1.7-8.2) 10/02/19 06:08 Absolute Lymphs (auto) 1.7 10^3/uL (0.5-4.7) 10/02/19 06:08 Absolute Monos (auto) 0.5 10^3/uL (0.1-1.4) 10/02/19 06:08 Absolute Eos (auto) 0.1 10^3/uL (0.0-0.6) 10/02/19 06:08 Absolute Basos (auto) 0.0 10^3/uL (0.0-0.2) 10/02/19 06:08 Seg Neutrophils % 69.4 % (42-78) 10/02/19 06:08 Sodium 136.3 mmol/L (137-145) L 10/04/19 04:18 Potassium 3.9 mmol/L (3.6-5.0) 10/04/19 04:18 Chloride 104 mmol/L (98-107) 10/04/19 04:18 Carbon Dioxide 26 mmol/L (22-30) 10/04/19 04:18 Anion Gap 6 (5-19) 10/04/19 04:18 BUN 18 mg/dL (7-20) 10/04/19 04:18 Creatinine 0.76 mg/dL (0.52-1.25) 10/04/19 04:18 Est GFR ( Amer) > 60 (>60) 10/04/19 04:18 Est GFR (MDRD) Non-Af > 60 (>60) 10/04/19 04:18 Glucose 101 mg/dL (75-110) 10/04/19 04:18 Calcium 8.6 mg/dL (8.4-10.2) 10/04/19 04:18 Total Bilirubin 0.9 mg/dL (0.2-1.3) 09/30/19 23:52 Direct Bilirubin 0.2 mg/dL (0.0-0.4) 09/30/19 23:52 Neonat Total Bilirubin Not Reportable 09/30/19 23:52 Neonat Direct Bilirubin Not Reportable 09/30/19 23:52 Neonat Indirect Bili Not Reportable 09/30/19 23:52 AST 20 U/L (14-36) 09/30/19 23:52 ALT 18 U/L (<35) 09/30/19 23:52 Alkaline Phosphatase 78 U/L (38-126) 09/30/19 23:52 Total Protein 7.2 g/dL (6.3-8.2) 09/30/19 23:52 Albumin 4.1 g/dL (3.5-5.0) 09/30/19 23:52 Lipase 38.3 U/L (23-300) 09/30/19 23:52 Urine Color STRAW 09/30/19 23:52 Urine Appearance CLEAR 09/30/19 23:52 Urine pH 6.0 (5.0-9.0) 09/30/19 23:52 Ur Specific [place] 1.002 09/30/19 23:52 Urine Protein NEGATIVE mg/dL (NEGATIVE) 09/30/19 23:52 Urine Glucose (UA) NEGATIVE mg/dL (NEGATIVE) 09/30/19 23:52 Urine Ketones NEGATIVE mg/dL (NEGATIVE) 09/30/19 23:52 Urine Blood SMALL (NEGATIVE) H 09/30/19 23:52 Urine Nitrite NEGATIVE (NEGATIVE) 09/30/19 23:52 Urine Bilirubin NEGATIVE (NEGATIVE) 09/30/19 23:52 Urine Urobilinogen NEGATIVE mg/dL (<2.0) 09/30/19 23:52 Ur Leukocyte Esterase NEGATIVE (NEGATIVE) 09/30/19 23:52 Urine WBC (Auto) 1 /HPF 09/30/19 23:52 Urine RBC (Auto) 1 /HPF 09/30/19 23:52 Urine Bacteria (Auto) TRACE /HPF 09/30/19 23:52 Squamous Epi Cells Auto 1 /HPF 09/30/19 23:52 Urine Mucus (Auto) RARE /LPF 09/30/19 23:52 Urine Ascorbic Acid NEGATIVE (NEGATIVE) 09/30/19 23:52 Impressions: KUB X-Ray 09/30/19 22:48 IMPRESSION: A few mildly prominent air-filled loops of small bowel with air-fluid levels likely reflect ileus. Partial or incomplete obstruction is not excluded entirely copyright 2011 [email or web address]- All Rights Reserved Abdomen/Pelvis CT 10/01/19 00:00 IMPRESSION: 1. At least partial small bowel obstruction related to one of the anterior abdominal wall hernias, it is unknown if the obstruction is related to an adhesion within or adjacent to the hernia versus the hernia itself. Recommend surgical consultation. 2. Multiple midline anterior abdominal wall hernias as above. 3. Moderate size hiatal hernia. 4. Diverticulosis.
[2019-10-06 13:29] VITALS: BP 128/60
== END 2019-10-06 14:15 | disposition home or self-care (01) | DRG 336 ==
LOC: ER 20:20 → EH 10-01 05:05 → 3N 10-01 07:51
PROVIDERS: ADMIT Surgery; ATTEND Surgery
PROC: 0WUF4JZ Supplement Abdominal Wall with Synthetic Substitute, Percutaneous Endoscopic Approach (ICD-10-PCS; 2019-10-02)
PROC: 8E0W4CZ Robotic Assisted Procedure of Trunk Region, Percutaneous Endoscopic Approach (ICD-10-PCS; 2019-10-02)
PROC: 0DN84ZZ Release Small Intestine, Percutaneous Endoscopic Approach (ICD-10-PCS; principal; 2019-10-02 09:30)
DX: K43.6 Other and unspecified ventral hernia with obstruction, without gangrene (principal); K56.51 Intestinal adhesions [bands], with partial obstruction; I48.91 Unspecified atrial fibrillation; K21.9 Gastro-esophageal reflux disease without esophagitis; G47.30 Sleep apnea, unspecified
CPT/HCPCS: 36415; 74018; 74177; 752; 80048; 80053; 81001; 83690; 85025; 96361; 96374; 96375; 99285; C1781; C9113; J0131; J0330; J0690; J1100; J1170; J1885; J2250; J2270; J2370; J2405; J2704; J2710; J3010; J3490; J7030

== ENCOUNTER → 2020-09-10 | Day surgery (SDC) | payer BC, MEDICARE ==
[~2020-09-10] MED LIST: LIDOCAINE 1%/EPINEPHRINE INJ 20 ML VIAL ONE
--- NOTE | 2020-09-10 11:26 | Discharge Summary ---
Discharge Summary (SDC) - Discharge Final Diagnosis: New clustered microcalcifications right breast Date of Surgery: 09/10/20 Discharge Date: 09/10/20 Condition: Good Treatment or Instructions: Patient may resume preoperative medications, diet, activity; follow-up with [facility], Dr. Garcia in 1 to 2 weeks. Patient may take Tylenol or Motrin as needed pain. Referrals: MARGARITA RAMIREZ NP [Primary Care Provider] - Discharge Activity: Activity As Tolerated Home Care Assistance: None Needed Report the Following to Your Physician Immediately: Shortness of Breath, Increase in Pain, Fever over 101 Degrees
--- NOTE | 2020-09-10 11:31 | Operative Report ---
Operative Report DATE OF SURGERY: 09/10/20 PREOPERATIVE DIAGNOSIS: 1. Cluster of microcalcifications right breast. 2. A rthritis POSTOPERATIVE DIAGNOSIS: Same OPERATION: 1. Stereotactically directed mammotomy core biopsies right breast. 2. Interpretation of intraoperative mammography. 3. Deployment of clip marker right breast central aspect. 4. Interpretation of specimen radiograph SURGEON: MAGDIEL ZUNIGA ANESTHESIA: Local TISSUE REMOVED OR ALTERED: Multiple cores right breast ESTIMATED BLOOD LOSS: Minimal INTRAOPERATIVE FINDINGS: See below PROCEDURE: Patient was taken in the holding area in the radiology department to the stereotactic room where she was position on the table, with the right breast into compression using a lateral approach. The target microcalcifications in between the several macrocalcifications were identified. Surgical plan surgical timeout conducted. Stereotactic views were obtained of the target area in the central aspect of the right breast. The surface of the right breast was prepped with Betadine, and anesthetized with 1% plain lidocaine. A small laura in the skin was made with a 11 blade, and mammotome advanced to the appropriate depth. Pre and post fire films, 15 degrees positive at 15 degrees negative were obtained showing good alignment between the mammotome and the target microcalcifications. Approximately 12 cores were now taken in a circumferential fashion, well- tolerated by the patient. All cores were placed in a Vega dish, and imaged in the procedure room using the specimen radiograph machine. Specimens were noted to contain the target microcalcifications, thereby deeming the procedure success. A clip marker was now deployed into the biopsy cavity, and post deployment images showed retention of the clip in the biopsy cavity. The introducer sheath for the mammotome was removed, breast compressed. Patient tolerated the procedure well. She was returned to the floor safely and discharged home with discharge instructions provided.
== END ==
LOC: RAD 10:19
PROVIDERS: ATTEND Surgery
DX: R92.0 Mammographic microcalcification found on diagnostic imaging of breast (principal); Z87.19 Personal history of other diseases of the digestive system; I48.91 Unspecified atrial fibrillation; Z79.899 Other long term (current) drug therapy; Z88.8 Allergy status to other drugs, medicaments and biological substances; E66.01 Morbid (severe) obesity due to excess calories; Z68.41 Body mass index [BMI] 40.0-44.9, adult
CPT/HCPCS: 88305 ×2; 88342; 19081; 77065; J3490

== ENCOUNTER 2020-10-24 20:07 | Emergency (ER) | payer BC, MEDICARE ==
--- NOTE | 2020-10-24 20:46 | ER Document Report ---
ED Medical Screen (RME) - General Chief Complaint: Chest Pain Stated Complaint: COVID+ Time Seen by Provider: 10/24/20 20:30 Primary Care Provider: MARGARITA RAMIREZ NP [Primary Care Provider] - Follow up as needed Mode of Arrival: Ambulatory Information source: Patient Notes: 70-year-old female patient with active Covid infection presents the emergency department concern for chest tightness. Patient reports symptoms of Covid ongoing for the last 7 days. Chest tightness began yesterday. Patient denies any shortness of breath. Patient alert, oriented, answering all questions appropriately, no obvious respiratory distress noted. I have greeted and performed a rapid initial assessment of this patient. A comprehensive ED assessment and evaluation of the patient, analysis of test results and completion of the medical decision making process will be conducted by additional ED providers. I have specifically instructed the patient or family members with the patient to immediately return to any nursing staff should anything change in the patient's condition or with their chief complaint. TRAVEL OUTSIDE OF THE [place] IN LAST 30 DAYS: No - Related Data Allergies/Adverse Reactions: doxycycline [Doxycycline] Allergy (Severe, Verified 09/30/19 22:42) Past Medical History - Past Medical History Cardiac Medical History: Reports: Hx Atrial Fibrillation - diltiazem Denies: Hx Coronary Artery Disease, Hx Heart Attack, Hx Hypertension Pulmonary Medical History: Reports: Hx Sleep Apnea Denies: Hx Asthma, Hx Bronchitis, Hx COPD, Hx Pneumonia Neurological Medical History: Denies: Hx Cerebrovascular Accident, Hx Seizures Renal/ Medical History: Denies: Hx Peritoneal Dialysis GI Medical History: Reports: Hx Gastroesophageal Reflux Disease, Hx Hiatal Hernia - hx of repair, takes nexium. Denies: Hx Hepatitis, Hx Ulcer Musculoskeltal Medical History: Reports Hx Arthritis - mobic prn Infectious Medical History: Denies: Hx Hepatitis Past Surgical History: Reports: Hx Cholecystectomy, Hx Orthopedic Surgery - left knee replacement, Other - open Leigh fundoplication Ex Lap for SBO. Denies: Hx Mastectomy, Hx Open Heart Surgery, Hx Pacemaker - Immunizations Hx Diphtheria, Pertussis, Tetanus Vaccination: Yes Physical Exam - Vital signs Vitals: Temp Pulse Resp BP Pulse Ox 99.0 F 74 17 160/103 H 95 10/24/20 20:17 10/24/20 20:17 10/24/20 20:17 10/24/20 20:17 10/24/20 20:17 Course - Vital Signs Vital signs: Temp Pulse Resp BP Pulse Ox 99.0 F 74 17 160/103 H 95 10/24/20 20:17 10/24/20 20:17 10/24/20 20:17 10/24/20 20:17 10/24/20 20:17 Doctor's Discharge - Discharge Referrals: MARGARITA RAMIERZ NP [Primary Care Provider] - Follow up as needed
--- NOTE | 2020-10-24 22:51 | RADIOLOGY REPORT (SQ) ---
CHEST X-RAY 1 VIEW on 10/24/2020 at 10:12 PM CLINICAL INDICATION: Chest pain, positive COVID 19 COMPARISON: 08/11/2019 FINDINGS: There is a moderate sized hiatal hernia. The lungs are clear. Heart is within normal limits for size. Pulmonary vascularity is within normal limits. No bony abnormality is noted. IMPRESSION: 1. Hiatal hernia. 2. No pulmonary opacities identified. Please note that chest radiographs have low sensitivity for subtle groundglass opacities.
[2020-10-25 01:53] LABS: ABSOLUTE LYMPHOCYTES (AUTO) 1.6 10^3/uL (0.5-4.7); ABSOLUTE MONOCYTES (AUTO) 0.4 10^3/uL (0.1-1.4); ABSOLUTE NEUT (AUTO) 3.1 10^3/uL (1.7-8.2); BASOPHILS % (AUTO) 0.5 % (0-2); EOSINOPHILS % (AUTO) 0.5 % (0-6); HEMATOCRIT 41.1 % (36.0-47.0); HEMOGLOBIN 14.2 g/dL (12.0-15.5); LYMPHOCYTES % (AUTO) 30.6 % (13-45); MEAN CORPUSCULAR HEMOGLOBIN 30.7 pg (27.0-33.4); MEAN CORPUSCULAR HGB CONC 34.5 g/dL (32.0-36.0); MEAN CORPUSCULAR VOLUME 89 fl (80-97); MONOCYTES % (AUTO) 8.6 % (3-13); PLATELET COUNT 152 10^3/uL (150-450); RED BLOOD COUNT 4.62 10^6/uL (3.72-5.28); RED CELL DISTRIBUTION WIDTH 13.5 % (11.5-14.0); SEGMENTED NEUTROPHILS % (AUTO) 59.8 % (42-78); TOTAL CELLS COUNTED % (AUTO) 100 %; WHITE BLOOD COUNT 5.1 10^3/uL (4.0-10.5)
[2020-10-25 02:38] LABS: ALBUMIN 3.8 g/dL (3.5-5.0); ALKALINE PHOSPHATASE 91 U/L (38-126); ANION GAP 6 (5-19); ASPARTATE AMINO TRANSFERASE 20 U/L (14-36); BILIRUBIN,DIRECT 0.4 mg/dL (0.0-0.4); BILIRUBIN,TOTAL 0.7 mg/dL (0.2-1.3); BLOOD UREA NITROGEN 14 mg/dL (7-20); CARBON DIOXIDE 30 mmol/L (22-30); CHLORIDE 105 mmol/L (98-107); GLUCOSE 115 mg/dL (75-110); POTASSIUM 3.9 mmol/L (3.6-5.0); TOTAL PROTEIN 6.7 g/dL (6.3-8.2)
[2020-10-25] MEDS ORDERED: DEXAMETHASONE 4 MG TABLET PO ONE (03:24)
--- NOTE | 2020-10-25 03:31 | ER Document Report ---
ED General - General Chief Complaint: Chest Tightness Stated Complaint: COVID+ Time Seen by Provider: 10/24/20 20:30 Primary Care Provider: MARGARITA RAMIREZ NP [Primary Care Provider] - Follow up as needed Mode of Arrival: Ambulatory TRAVEL OUTSIDE OF THE [place] IN LAST 30 DAYS: No - HPI Context: Chief Complaint: [Chest tightness] [This is a 70-year-old female with active Covid infection that presents to the emergency department concern for chest tightness that she has been having for the past 2 days. Patient was diagnosed with COVID-19 approximately 7 days ago. Patient states she is not having trouble breathing. Patient denies loss of sense of taste or loss of sense of smell. ] History obtained from [patient] Symptoms began:[2 days ago] Onset: [Gradual] Timing: [Gradual] Quality: [Tight] Intensity: [Moderate] Location: [Chest] Radiation: [Denies] [The pain does not migrate to a new location.] Aggravating factors: [none] Relieving factors: [none] [Denies] SOB [Denies] nausea [Denies] vomiting [Denies] sweats [Denies] fever [Denies] cough [Denies] calf or leg swelling or pain - Related Data Allergies/Adverse Reactions: doxycycline [Doxycycline] Allergy (Severe, Verified 09/30/19 22:42) Home Medications: Diltazium. Vitamin D. Magnesium. Flonase. Maxalt Past Medical History - General Information source: Patient - Social History Smoking Status: Never Smoker Chew tobacco use (# tins/day): No Frequency of alcohol use: None Drug Abuse: None Family History: Reviewed & Not Pertinent - Past Medical History Cardiac Medical History: Reports: Hx Atrial Fibrillation - diltiazem Denies: Hx Coronary Artery Disease, Hx Heart Attack, Hx Hypertension Pulmonary Medical History: Reports: Hx Sleep Apnea Denies: Hx Asthma, Hx Bronchitis, Hx COPD, Hx Pneumonia Neurological Medical History: Denies: Hx Cerebrovascular Accident, Hx Seizures Renal/ Medical History: Denies: Hx Peritoneal Dialysis GI Medical History: Reports: Hx Gastroesophageal Reflux Disease, Hx Hiatal Hernia - hx of repair, takes nexium. Denies: Hx Hepatitis, Hx Ulcer Musculoskeletal Medical History: Reports Hx Arthritis - mobic prn Infectious Medical History: Denies: Hx Hepatitis Past Surgical History: Reports: Hx Cholecystectomy, Hx Orthopedic Surgery - left knee replacement, Other - open Leigh fundoplication Ex Lap for SBO. Denies: Hx Mastectomy, Hx Open Heart Surgery, Hx Pacemaker - Immunizations Hx Diphtheria, Pertussis, Tetanus Vaccination: Yes Hx Pneumococcal Vaccination: 10/23/12 Review of Systems - Review of Systems Notes: Review of systems as below unless otherwise stated in HPI. CONSTITUTIONAL [No] fever, [No] chills. EYES [No] eye pain. ENT [No] URI symptoms, [No] sore throat, [No] ear pain. CARDIOVASCULAR Positive chest tightness, [No] palpitations, [No] edema. RESPIRATORY [No] Cough, [No] SOB, [No] wheezing. GASTROINTESTINAL [No] abdominal pain, [No] nausea, [No] Diarrhea, [No] Vomiting, [No] constipation, [No] melena, [No] rectal bleeding. GENITOURINARY [No] dysuria, [No] urinary frequency, [No] hematuria, [No] urinary urgency, [No] vaginal discharge, [No] vaginal bleeding. MUSCULOSKELETAL [No] Back pain. SKIN [No] Rash. NEUROLOGIC [No] Headache, [No] recent seizures, [No] paralysis,[No] parathesias. ENDOCRINE [No] polyuria. HEMO/LYMPATIC [No] easy brusing PSYCHIATRIC [No] depression. Physical Exam - Vital signs Vitals: Temp Pulse Resp BP Pulse Ox 99.0 F 74 17 160/103 H 95 10/24/20 20:17 10/24/20 20:17 10/24/20 20:17 10/24/20 20:17 10/24/20 20:17 - Notes Notes: CONSTITUTIONAL [Vital signs reviewed, Patient appears comfortable, Alert and oriented X 3, Normal stature.] HEAD [Atraumatic, Normocephalic.] EYES [Eyes are normal to inspection, No discharge from eyes, Extraocular muscles intact, Sclera are normal, Conjunctiva are normal.] ENT [External ears normal to inspection, Nose examination normal, Mouth normal to inspection.] NECK [Normal ROM, No jugular venous distention, No meningeal signs, ] RESPIRATORY CHEST [Chest is nontender, Breath sounds normal, No respiratory distress.] CARDIOVASCULAR [RRR, No murmurs, Normal S1 S2, No rub, No gallop.] ABDOMEN [Abdomen is nontender, No pulsatile masses, No other masses, Bowel sounds normal, No distension, No peritoneal signs, No hernias.] BACK [There is no CVA Tenderness, There is no tenderness to palpation, Normal inspection.] UPPER EXTREMITY [Inspection normal, No cyanosis, No clubbing, No edema, LOWER EXTREMITY [Inspection normal, No cyanosis, No clubbing, No edema, No calf tenderness, NEURO [No focal motor deficits, No focal sensory deficits, Speech normal.] SKIN [Skin is warm, Skin is dry, Skin is normal color.] PSYCHIATRIC [Normal affect. ] Course - Re-evaluation Re-evalutation: 10/25/20 06:36 Results of ED MSE discussed with patient. All questions were answered prior to discharge. Emergency signs and symptoms, reasons to return to the emergency department discussed patient. - Vital Signs Vital signs: Temp Pulse Resp BP Pulse Ox 98.0 F 58 L 17 132/71 H 99 10/25/20 04:22 10/25/20 04:22 10/25/20 04:22 10/25/20 04:22 10/25/20 04:22 - Laboratory Results Result Diagrams: 10/25/20 01:38 10/25/20 01:38 Laboratory Results Interpreted: 10/25/20 01:38 Glucose 115 H Critical Laboratory Results Reviewed: No Critical Results Attending or Supervising Physician who Reviewed Labs: SANA HOWARD IV - Radiology Results Critical Radiology Results Reviewed: No Critical Results Attending or Supervising Physician who Reviewed Radiology: SANA HOWARD IV - EKG Interpretation by Me Additional EKG results interpreted by me: 10/25/20 03:35 EKG obtained on 10/24/2020 2114 hrs. was interpreted by this MD. Findings: Normal sinus rhythm, rate 67, normal axis, NC interval appears to be within normal limits, P waves preceding QRS complexes, QRS complexes appear narrow, QTC is 431, there are no obvious patterns of ST segment elevation, depression or reciprocal changes seen to suggest acute myocardial ischemia or infarction. When compared to EKG from 04/11/2018, gross morphology of the 2 EKGs is basically the same. Impression: Normal sinus rhythm with nonspecific ST segments. Discharge - Discharge Clinical Impression: COVID-19 Condition: Stable Disposition: HOME, SELF-CARE Additional Instructions: Current recommendations for patients with suspected/confirmed COVID-19 infection and symptoms include the following: Vitamin C 500 mg twice a day Quercetin 250-500mg twice a day Melatonin 6 to 12 mg at bedtime Vitamin D3 2000 to 4000 units daily Aspirin 81 to 325 mg daily Famotidine (Pepcid) 40 mg twice a day Return to the Emergency Department without delay if any worse. HOME CARE INSTRUCTIONS & INFORMATION: Thank you for choosing us for your medical needs. We hope you're satisfied with the care you received. After you leave, you must properly care for your problem and, at the same time, observe its progress. Any condition can change. Some illnesses can change rapidly over hours or days. If your condition worsens, return to the Emergency Department or see your physician promptly. ABOUT YOUR X-RAYS AND EKG'S: If you had an EKG or X-rays taken, they have been read by the Emergency Physician. The X-rays and EKG's will also be read by a Radiologist or Manager Client Support within 24 hours. If discrepancies are noted, you will be notified by telephone. Please be certain the ED has a correct telephone number & address where you can be reached. Also, realize that some fractures or abnormalities do not show up on initial X-rays. If your symptoms continue, see your physician. ABOUT YOUR LABORATORY TEST: If you had laboratory tests, the results have been reviewed by the Emergency Physician. Some test results (for example cultures) may not be available for several days. You will be contacted if any test result shows you need additional treatment. Please be certain the ED has a correct telephone number and address where you can be reached. ABOUT YOUR MEDICATIONS: You will receive instructions on how to take your medicine on the prescription label you receive. Additional information may be provided by the Pharmacy. If you have questions afterwards, call the ED for clarification or further instructions. Some prescribed medications may cause drowsiness. Do not perform tasks such as driving a car or operating machinery without consulting your Pharmacist. If you feel you need a refill of pain medication, your condition will need re-evaluation. Please do not call for a refill of any medication. ABOUT YOUR SIGNATURE: Signature of this document acknowledges to followin. Understanding that you received emergency treatment and that you may be released before al medical problems are known or treated. Please be certain the ED has a correct phone number & address where you can be reached. 2. Acknowledgement that you will arrange for follow-up care as recommended. 3. Authorization for the Emergency Physician to provide information to your follow-up Physician in order to maximize your care. AT ANY TIME, IF YOUR SYMPTOMS CHANGE SIGNIFICANTLY OR WORSEN OR YOU DEVELOP NEW SYMPTOMS, RETURN TO THE EMERGENCY DEPARTMENT IMMEDIATELY FOR RE-EVALUATION. OUR GOAL IS TO PROVIDE EXCELLENT MEDICAL CARE! WE HOPE THAT WE HAVE MET YOUR EXPECTATIONS DURING YOUR EMERGENCY DEPARTMENT VISIT AND THAT YOU FEEL YOU HAVE RECEIVED EXCELLENT CARE! Prescriptions: Dexamethasone [Decadron] 6 mg PO DAILY 4 Days #4 tablet Referrals: MARGARITA RAMIREZ NP [Primary Care Provider] - Follow up as needed
[2020-10-25] MEDS ORDERED: DEXAMETHASONE 4 MG TABLET ONE (04:16)
[2020-10-25 04:24] VITALS: BP 132/71
--- NOTE | 2020-10-25 09:45 | EKG REPORT ---
SEVERITY:- OTHERWISE NORMAL ECG - SINUS RHYTHM MINIMAL ST DEPRESSION, ANTEROLATERAL LEADS : Confirmed by: Otto Ramsey MD 25-Oct-2020 09:44:56
== END 2020-10-25 04:22 | disposition home or self-care (01) ==
LOC: ER 20:07
DX: U07.1 COVID-19 (principal); K44.9 Diaphragmatic hernia without obstruction or gangrene; R07.89 Other chest pain; I48.91 Unspecified atrial fibrillation; Z79.899 Other long term (current) drug therapy; Z88.1 Allergy status to other antibiotic agents
CPT/HCPCS: 93005; 99285; 36415; 85025; 80053; 84484; 71045; 93010; J8540

== ENCOUNTER 2020-11-12 05:57 | Emergency (ER) | payer BC, MEDICARE ==
--- NOTE | 2020-11-12 07:22 | EKG REPORT ---
SEVERITY:- ABNORMAL ECG - ATRIAL FIBRILLATION, V-RATE 78-[address]-T CHANGES DIFFUSE : Confirmed by: Renaldo Salazar MD 12-Nov-2020 07:22:24
[2020-11-12 07:31] LABS: ALBUMIN 3.8 g/dL (3.5-5.0); ALKALINE PHOSPHATASE 97 U/L (38-126); ANION GAP 9 (5-19); ASPARTATE AMINO TRANSFERASE 17 U/L (14-36); BILIRUBIN,DIRECT 0.2 mg/dL (0.0-0.4); BILIRUBIN,TOTAL 0.7 mg/dL (0.2-1.3); BLOOD UREA NITROGEN 17 mg/dL (7-20); CALCIUM 9.7 mg/dL (8.4-10.2); CARBON DIOXIDE 25 mmol/L (22-30); CHLORIDE 104 mmol/L (98-107); CREATINE KINASE 33 U/L (30-135); GLUCOSE 114 mg/dL (75-110); POTASSIUM 4.4 mmol/L (3.6-5.0); TOTAL PROTEIN 6.5 g/dL (6.3-8.2)
[2020-11-12 07:36] LABS: ABSOLUTE BASOPHILS # (AUTO) 0.1 10^3/uL (0.0-0.2); ABSOLUTE EOSINOPHILS # (AUTO) 0.2 10^3/uL (0.0-0.6); ABSOLUTE LYMPHOCYTES (AUTO) 1.2 10^3/uL (0.5-4.7); ABSOLUTE MONOCYTES (AUTO) 0.4 10^3/uL (0.1-1.4); ABSOLUTE NEUT (AUTO) 3.6 10^3/uL (1.7-8.2); EOSINOPHILS % (AUTO) 2.9 % (0-6); HEMOGLOBIN 13.8 g/dL (12.0-15.5); LYMPHOCYTES % (AUTO) 21.6 % (13-45); MEAN CORPUSCULAR HEMOGLOBIN 30.6 pg (27.0-33.4); MEAN CORPUSCULAR HGB CONC 34.6 g/dL (32.0-36.0); MEAN CORPUSCULAR VOLUME 89 fl (80-97); MONOCYTES % (AUTO) 6.8 % (3-13); PLATELET COUNT 233 10^3/uL (150-450); RED BLOOD COUNT 4.53 10^6/uL (3.72-5.28); RED CELL DISTRIBUTION WIDTH 13.7 % (11.5-14.0); SEGMENTED NEUTROPHILS % (AUTO) 67.7 % (42-78); TOTAL CELLS COUNTED % (AUTO) 100 %; WHITE BLOOD COUNT 5.4 10^3/uL (4.0-10.5)
--- NOTE | 2020-11-12 07:41 | RADIOLOGY REPORT (SQ) ---
EXAM DESCRIPTION: X-ray two view chest. CLINICAL HISTORY: 70 years Female, IRREGULAR HEART RATE COMPARISON: 10/24/2020 TECHNIQUE: PA and Lateral views of the chest performed on 11/12/2020 at 7:19 AM FINDINGS: The lungs are well expanded and are clear. The costophrenic sulci are clear. There is no evidence of a pneumothorax. There is a retrocardiac lucency consistent with a hiatal hernia. The cardiac silhouette is normal in size. The mediastinal contours are normal. No acute osseous abnormalities are identified. No focal soft tissue abnormalities are identified. IMPRESSION: 1. No evidence of acute intrathoracic disease. 2. Small hiatal hernia.
[2020-11-12 07:43] LABS: CREATINE KINASE MB 0.42 ng/mL (<4.55); TROPONIN I < 0.012 ng/mL
--- OUTSIDE RECORDS SUMMARY | 2020-11-12 08:02 | XMS REPORT ---
:1950 [facility] [address] [place] [id number] Care Team Providers Name Role Phone Floyd Attending Clinician Unavailable Armando Attending Clinician Unavailable Allergies, Adverse Reactions, Alerts This patient has no known allergies or adverse reactions. Medications This patient has no known medications. Problems This patient has no known problems. Procedures Procedure Date / Time Performed Performing Clinician Lindsay junior THERAPEUTIC ACTIVITIES 2019-09-25 11:00:00 MANUAL THERAPY 2019-09-25 11:00:00 THERAPEUTIC EXERCISES 2019-09-25 11:00:00 VASOPNEUMATIC DEVICE THERAPY 2019-09-09 15:00:00 THERAPEUTIC EXERCISES 2019-09-09 15:00:00 MANUAL THERAPY 2019-09-09 15:00:00 VASOPNEUMATIC DEVICE THERAPY 2019-09-04 10:30:00 MANUAL THERAPY 2019-09-04 10:30:00 THERAPEUTIC EXERCISES 2019-09-04 10:30:00 THERAPEUTIC ACTIVITIES 2019-09-04 10:30:00 VASOPNEUMATIC DEVICE THERAPY 2019-09-02 14:00:00 THERAPEUTIC EXERCISES 2019-09-02 14:00:00 MANUAL THERAPY 2019-09-02 14:00:00 THERAPEUTIC EXERCISES 2019-08-30 15:30:00 VASOPNEUMATIC DEVICE THERAPY 2019-08-30 15:30:00 MANUAL THERAPY 2019-08-30 15:30:00 VASOPNEUMATIC DEVICE THERAPY 2019-08-26 10:30:00 MANUAL THERAPY 2019-08-26 10:30:00 THERAPEUTIC EXERCISES 2019-08-26 10:30:00 THERAPEUTIC ACTIVITIES 2019-08-23 13:00:00 THERAPEUTIC EXERCISES 2019-08-23 13:00:00 MANUAL THERAPY 2019-08-23 13:00:00 VASOPNEUMATIC DEVICE THERAPY 2019-08-23 13:00:00 THERAPEUTIC EXERCISES 2019-08-21 15:30:00 VASOPNEUMATIC DEVICE THERAPY 2019-08-21 15:30:00 THERAPEUTIC EXERCISES 2019-08-14 13:00:00 THERAPEUTIC ACTIVITIES 2019-08-14 13:00:00 PT Evaluation, Mod Complexity 2019-08-14 13:00:00 OFFICE/OUTPATIENT VISIT, EST 2019-07-26 08:30:00 OFFICE/OUTPATIENT VISIT, EST 2019-06-14 14:45:00 Results Test Description Test Time Test Comments Text Results Atomic Results Result Comments SARS-CoV-2 RNA Resp Ql GUS+probe 2020-10-21 00:00:00 Test Item Value Reference Range Comments SARS-CoV-2 RNA Resp Ql GUS+probe Detected [place] Cov[facility] Case ID: (test code = [id number]) [id number] Assessments Condition Name Status Diagnosis Date Treating Clinici an Unilateral primary osteoarthritis, right Active knee Presence of left artificial knee joint Active Pain in right knee Active Pain in left knee Active Unilateral primary osteoarthritis, right Active knee Presence of left artificial knee joint Active Pain in right knee Active Pain in left knee Active Unilateral primary osteoarthritis, right Active knee Presence of left artificial knee joint Active Pain in right knee Active Pain in left knee Active Unilateral primary osteoarthritis, right Active knee Presence of left artificial knee joint Active Pain in right knee Active Pain in left knee Active Unilateral primary osteoarthritis, right Active knee Presence of left artificial knee joint Active Pain in right knee Active Pain in left knee Active Unilateral primary osteoarthritis, right Active knee Presence of left artificial knee joint Active Pain in right knee Active Pain in left knee Active Unilateral primary osteoarthritis, right Active knee Presence of left artificial knee joint Active Pain in right knee Active Pain in left knee Active Unilateral primary osteoarthritis, right Active knee Presence of left artificial knee joint Active Pain in right knee Active Pain in left knee Active Unilateral primary osteoarthritis, right Active knee Presence of left artificial knee joint Active Pain in right knee Active Pain in left knee Active Unilateral primary osteoarthritis, right Active knee Presence of left artificial knee joint Active Pain in right knee Active Pain in left knee Active Unilateral primary osteoarthritis, right Active knee Presence of left artificial knee joint Active Pain in right knee Active Pain in left knee Active Encounters Start End Encounter Admission Attending Care Care Encounter Date/Time Date/Time Type Type Clinicians Facility Department ID 2019-09-25 2019-09-25 Outpatient SMILEY Barrientos [id number] 11:00:00 11:00:00 [facility] [id number] \T\ Sports [id number] Medicine [id number] 2019-09-09 2019-09-09 Outpatient SMILEY Barrientos [id number] 15:00:00 15:00:00 [facility] [id number] \T\ Sports [id number] Medicine [id number] 2019-09-04 2019-09-04 Outpatient SMILEY Barrientos [id number] 10:30:00 10:30:00 [facility] [id number] \T\ Sports [id number] Medicine [id number] 2019-09-02 2019-09-02 Outpatient SMILEY Barrientos [id number] 14:00:00 14:00:00 [facility] [id number] \T\ Sports [id number] Medicine [id number] 2019-08-30 2019-08-30 Outpatient SMILEY Barrientos [id number] 15:30:00 15:30:00 [facility] [id number] \T\ Sports [id number] Medicine [id number] 2019-08-26 Outpatient SMILEY Barrientos [id number] C0-[id number] 10:30:00 10:30:00 [facility] [id number] \T\ Sports [id number] Medicine [id number] 2019-08-23 2019-08-23 Outpatient SMILEY Barrientos [id number] 13:00:00 13:00:00 [facility] [id number] \T\ Sports [id number] Medicine [id number] 2019-08-21 2019-08-21 Outpatient SMILEY Barrientos [id number] [id number] 15:30:00 15:30:00 [facility] [id number] \T\ Sports [id number] Medicine [id number] 2019-08-14 2019-08-14 Outpatient SMILEY [facility] [id number] 13:00:00 13:00:00 [facility] [id number] \T\ Sports [id number] Medicine [id number] 2019-07-26 2019-07-26 Outpatient Armando SMILEY Madrigal [id number] 08:30:00 08:30:00 [facility] [id number] \T\ Sports [id number] Medicine [id number] 2019-06-14 2019-06-14 Outpatient Armadno SMILEY Madrigal CCAEF [id number] 14:45:00 14:45:00 [facility] [id number] \T\ Sports [id number] Medicine [id number] Social History This patient has no known social history. Vital Signs This patient has no known vital signs.
[2020-11-12 09:39] LABS: APPEARANCE,URINE CLEAR; BILIRUBIN,URINE NEGATIVE (NEGATIVE); COLOR,URINE YELLOW; GLUCOSE, URINE NEGATIVE (NEGATIVE); KETONES,URINE NEGATIVE (NEGATIVE); LEUKOCYTE ESTERASE,URINE TRACE (NEGATIVE); NITRITE,URINE NEGATIVE (NEGATIVE); PROTEIN,URINE NEGATIVE (NEGATIVE); URINE SPECIFIC GRAVITY 1.015
--- NOTE | 2020-11-12 10:57 | ER Document Report ---
Entered by JULEE MOTA SCRIBE 11/12/20 0643 Acting as scribe for:JOSE CRUZ POSEY MD ED Cardiac - General Chief Complaint: Irregular Pulse Stated Complaint: RAPID HEARTBEAT Primary Care Provider: MARGARITA RAMIREZ NP [Primary Care Provider] - Follow up as needed Mode of Arrival: Ambulatory Information source: Patient Notes: This 70 year old female patient with a x7-8 year history of Atrial fibrillation on Diltiazem presents to the ED today for evaluation after having an episode of rapid heart rate while she was lying in bed reading around 0100 this morning. Patient states that her heart rate is usually in the 60s, but as she was monitoring it, she "felt in my chest" and it was in the 100s. She reports associated anxiety, but denies any chest pain. She is not on any blood thinners. Patient mentions that she tested positive for COVID about x3 weeks ago and has been quarantining since. She is asymptomatic at this time. Denies fever. TRAVEL OUTSIDE OF THE [place] IN LAST 30 DAYS: No - Related Data Allergies/Adverse Reactions: doxycycline [Doxycycline] Allergy (Severe, Verified 11/12/20 06:17) Home Medications: CARDIZEM. NEXIUM. VIT D. VIT B12. FLANASE. ALLERGY Past Medical History - General Information source: Patient, [facility] Records - Social History Smoking Status: Never Smoker Cigarette use (# per day): No Chew tobacco use (# tins/day): No Smoking Education Provided: No Frequency of alcohol use: None Drug Abuse: None Lives with: Family Family History: Reviewed & Not Pertinent - Past Medical History Cardiac Medical History: Reports: Hx Atrial Fibrillation - diltiazem Pulmonary Medical History: Reports: Hx Sleep Apnea GI Medical History: Reports: Hx Gastroesophageal Reflux Disease, Hx Hiatal Hernia - hx of repair, takes nexium Musculoskeletal Medical History: Reports Hx Arthritis - mobic prn Past Surgical History: Reports: Hx Cholecystectomy, Hx Orthopedic Surgery - left knee replacement, Other - open Leigh fundoplication Ex Lap for SBO - Immunizations Hx Diphtheria, Pertussis, Tetanus Vaccination: Yes Hx Pneumococcal Vaccination: 10/23/12 Review of Systems - Review of Systems Constitutional: See HPI, Recent illness. denies: Fever EENT: No symptoms reported Cardiovascular: See HPI, Palpitations. denies: Chest pain Respiratory: No symptoms reported Gastrointestinal: No symptoms reported Genitourinary: No symptoms reported Female Genitourinary: No symptoms reported Musculoskeletal: No symptoms reported Skin: No symptoms reported Hematologic/Lymphatic: No symptoms reported Neurological/Psychological: See HPI, Anxiety -: Yes All other systems reviewed and negative Physical Exam - Vital signs Vitals: Temp Pulse Resp BP Pulse Ox 98.9 F 54 L 16 133/90 H 99 11/12/20 06:12 11/12/20 06:12 11/12/20 06:12 11/12/20 06:12 11/12/20 06:12 - General General appearance: Appears well, Alert In distress: None - HEENT Head: Normocephalic, Atraumatic Eyes: Normal Extraocular movements intact: Yes Pupils: PERRL Neck: Normal, Supple - Respiratory Respiratory status: No respiratory distress Chest status: Nontender Breath sounds: Normal Chest palpation: Normal - Cardiovascular Rhythm: Regular Heart sounds: Normal auscultation Murmur: No Friction rub: No Gallop: None auscultated - Abdominal Inspection: Normal Distension: No distension Bowel sounds: Normal Tenderness: Nontender - Abdomen soft Organomegaly: No organomegaly - Back Back: Normal, Nontender - Extremities General upper extremity: Normal inspection General lower extremity: Normal inspection. No: Edema - Neurological Neuro grossly intact: Yes Orientation: AAOx4 [place] Coma Scale Eye Opening: Spontaneous Terrie Coma Scale Verbal: Oriented [place] Coma Scale Motor: Obeys Commands Terrie Coma Scale Total: 15 - Psychological Associated symptoms: Normal affect, Normal mood - Skin Skin Temperature: Warm Skin Moisture: Dry Skin Color: Normal Course - Re-evaluation Re-evalutation: 11/12/20 08:38 Patient resting comfortably showing no signs of distress at this time. 11/12/20 10:54 Patient's repeat troponin is within normal range and is less than detectable at this time. 11/12/20 10:54 Patient is medically cleared for discharge home she is back in normal sinus rhythm patient is ambulatory in the hallway going back and forth to the bathroom not showing any signs of distress. - Vital Signs Vital signs: Temp Pulse Resp BP Pulse Ox 98.9 F 54 L 16 118/67 97 11/12/20 06:12 11/12/20 06:12 11/12/20 06:12 11/12/20 06:42 11/12/20 06:42 11/12/20 08:39 Vital signs stable heart rate 54 sinus bradycardia. - Laboratory Results Result Diagrams: 11/12/20 07:27 11/12/20 06:34 Laboratory Results Interpreted: 11/12/20 11/12/20 06:34 09:10 Glucose 114 H Urine Urobilinogen 2.0 H Ur Leukocyte Esterase TRACE H Critical Laboratory Results Reviewed: No Critical Results - Radiology Results Radiology Results Interpreted: 11/12/20 08:37 Chest X-Ray 11/12/20 00:00 IMPRESSION: 1. No evidence of acute intrathoracic disease. 2. Small hiatal hernia. Chest x-ray shows no evidence of an acute intrathoracic disease small hiatal hernia noted. Critical Radiology Results Reviewed: No Critical Results - EKG Interpretation by Me Additional EKG results interpreted by me: 11/12/20 08:36 Twelve-lead EKG time 604 shows atrial fibrillation with a variable ventricular rate between 78-1 15. Current rate on this tracing is 97 normal axis variable CA interval with atrial fibrillation QRS interval within normal range QT interval within normal range no evidence for STEMI. Repeat 12-lead at 741 shows a normal sinus rhythm rate of 66 normal axis normal CA interval normal QRS interval normal QT interval no evidence for STEMI. Discharge - Discharge Clinical Impression: Chronic atrial fibrillation with RVR Condition: Stable Disposition: HOME, SELF-CARE Additional Instructions: Atrial Fibrillation Atrial fibrillation is an abnormal heart rhythm, caused by irregular electrical circuits in the upper heart chamber. It can be caused by heart valve disease, hardening of the arteries, or metabolic problems such as thyroid di sease, or may occur without a clear cause. Atrial fibrillation may occur only occasionally, or may be chronic. Atrial fibrillation often results in a very fast heart rate, with palpitations, lightheadedness, and shortness of breath. Treatment is to slow the abnormally fast rate, and to convert the rhythm back to normal, if possible. Many patients stay in atrial fibrillation for years without symptoms or complications. Your doctor will decide whether you can be converted back to a normal heart rhythm. Contact the doctor or emergency medical system at once if you develop chest pain, shortness of breath, or severe lightheadedness, or if you develop any disturbance of consciousness, problems with speech, or localized weakness. 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 And as we discussed I would have co nversation with your provider regarding the change in the brand of the diltiazem that you had been accustomed to taking it appeared to be a different tablet at this time. And prior to this new tablet you had not had any breakthrough rapid ventricular response A. fib. Referrals: MARGARITA RAMIREZ, [facility]ER [Primary Care Provider] - Follow up as needed I personally performed the services described in the documentation, reviewed and edited the documentation which was dictated to the scribe in my presence, and it accurately records my words and actions.
[2020-11-12 11:25] VITALS: BP 139/67
--- NOTE | 2020-11-12 12:14 | EKG REPORT ---
SEVERITY:- ABNORMAL ECG - SINUS RHYTHM NONSPECIFIC ST-T CHANGES- INFERIOR and ANTERIOR LEADS : Confirmed by: Renaldo Salazar MD 12-Nov-2020 12:13:48
== END 2020-11-12 11:00 | disposition home or self-care (01) ==
LOC: ER 05:57
DX: I48.20 Chronic atrial fibrillation, unspecified (principal); Z90.49 Acquired absence of other specified parts of digestive tract; Z86.16 Personal history of COVID-19
CPT/HCPCS: 36415; 71046; 80053; 81001; 82550; 82553; 83735; 84484; 85025; 93005; 93010; 99285